=== PATIENT | female | born 1950 | race Caucasian/White ===

== ENCOUNTER → 2017-04-28 | Outpatient (CLI) | payer OTHER ==
--- NOTE | 2017-04-28 15:08 | MAMMOGRAPHY REPORT ---
BILATERAL DIGITAL SCREENING MAMMOGRAM WITH CAD: 04/28/2017 CLINICAL HISTORY: Routine screening. Patient has no complaints. TECHNIQUE: Bilateral CC and MLO views were obtained. Current study was also evaluated with a Compute r Aided Detection (CAD) system. COMPARISON: Comparison is made to exams dated: 04/23/2016 mammogram, 04/02/2015 mammogram, 03/31/2014 mammogram, 03/30/2013 mammogram, 03/24/2011 mammogram, and 03/18/2010 mammogram - [facility]. BREAST COMPOSITION: There are scattered areas of fibroglandular density in both breasts. FINDINGS: There are a few benign coarse calcifications in the lower inner quadrants posteriorly. Sta ble focal asymmetry in the left upper outer anterior breast. No new suspicious mass, architectural d istortion or cluster of microcalcifications is seen. IMPRESSION: ACR BI-RADS CATEGORY 1: NEGATIVE There is no mammographic evidence of malignancy. A 1 year screening mammogram is recommended. The pa tient will receive written notification of the results. Approximately 10% of breast cancers are not detected with mammography. A negative mammographic report should not delay biopsy if a clinically suggestive mass is present. Arminda Hollingsworth M.D. ay/:04/28/2017 11:15:26 Logging Specialist: Angela MCDOWELL(R)(M), [facility] letter sent: Normal 1/2 BI-RADS Code: ACR BI-RADS Category 1: Negative
== END | disposition home or self-care (01) ==
LOC: C.MAMM 10:17
PROVIDERS: ATTEND Family Medicine
DX: Z12.31 Encounter for screening mammogram for malignant neoplasm of breast (principal)

== ENCOUNTER 2017-12-15 05:10 | Inpatient (IN) | payer OTHER ==
[2017-12-10 13:49] VITALS: BMI 32.0
[2017-12-15] VITALS (9 sets, daily range): BP systolic 125–155; BP diastolic 68–88; PULSE 66–82; TEMP 36.7–37.4; O2SAT 90–99; BMI 32.0
[~2017-12-15] VITALS: Ht 160 cm; Wt 84.4 kg
[~2017-12-15 05:10] MED LIST: CHOL1000 PO; LISI-461 PO; MELO7.5T5 PO; PRLSR20 PO; RANI1TAB75 PO; SIMV40TA2 PO
[2017-12-15] MEDS: LACTATED RINGER'S 1000ML 1,000 ML IV SCH ×4 (06:05→18:21)
--- NOTE | 2017-12-15 06:26 | History & Physical Bridge Note ---
H&P Re-Evaluation Bridge Note: I have examined the patient, reviewed the History & Physical and in the interval since the performance of the History & Physical I have noted the following changes of clinical significance: No changes noted all questions answered, nauseated when taking oral antibiotics for bowel prep, to be here later
[2017-12-15] MEDS ORDERED: ONDANSETRON INJ 2 MG/ML 2 ML VIAL ONE (06:39)
[2017-12-15] MEDS ORDERED: NURSING VERBAL MED ORDER ONE (06:45)
[2017-12-15] MEDS ORDERED: PROPOFOL IV EMULSION 10 MG/ML 20 ML VIAL ONE (06:45)
[2017-12-15] MEDS ORDERED: SUCCINYLCHOLINE 100MG/5ML SYR IV ONE (06:46)
[2017-12-15] MEDS ORDERED: FENTANYL CITRATE INJ 50 MCG/1 ML 2 ML VIAL ONE (06:47)
[2017-12-15] MEDS ORDERED: MIDAZOLAM HCL 1 MG/ML 2ML VIAL ONE (06:47)
[2017-12-15] MEDS ORDERED: CEFOXITIN SOD 1 GM VIAL ONE (07:19)
[2017-12-15] MEDS ORDERED: DEXAMETHASONE SOD INJ 4 MG/ML VIAL ONE (07:41)
[2017-12-15] MEDS ORDERED: HYDROmorphone INJ 2 MG/ML SYR/VIAL ONE (07:49)
[2017-12-15] MEDS ORDERED: PROMETHAZINE HCL INJ 12.5 MG in SODIUM CHLORIDE 0.9% 50ML 50 ML IV PRN (08:45)
[2017-12-15] MEDS ORDERED: ATROPINE SULFATE 0.1 MG/ML 5ML SYR IV PRN (08:45)
[2017-12-15] MEDS ORDERED: LABETALOL HCL IV 5 MG/ML 20ML IV PRN (08:45)
[2017-12-15] MEDS ORDERED: FLUMAZENIL 0.1 MG/1 ML 10 ML VIAL IV PRN (08:45)
[2017-12-15] MEDS ORDERED: NALOXONE HCL 0.4 MG/1 ML VIAL/CARP IV PRN (08:45)
[2017-12-15] MEDS ORDERED: ONDANSETRON INJ 2 MG/ML 2 ML VIAL IV PRN (08:45)
[2017-12-15] MEDS ORDERED: EpHEDrine SULFATE INJ 50 MG/ML AMP IV PRN (08:45)
[2017-12-15] MEDS ORDERED: NEOSTIGMINE METHYLSULFATE 5 MG/5 ML SYR ONE (09:03)
[2017-12-15] MEDS ORDERED: GLYCOPYRROLATE INJ 0.2 MG/ML VIAL ONE (09:03)
--- NOTE | 2017-12-15 09:23 | [facility] Post Operative Brief Note ---
Immediate Operative Summary Operative Date Dec 15, 2017. Pre-Operative Diagnosis appendiceal carcinoid Post-Operative Diagnosis same dense abdominal adhesions Procedure(s) Performed right radical colectomy, musaes dense abdominal adhesions Surgeon Dr. Miguel Pérez Commercial Account Officer Surgeon(s) Keyshawn Rivera PA-C Estimated Blood Loss 150cc Findings See Below as post op Specimens Permanent Solution: A.) Radical Right Colon and Omentum Drains 1/4 inch sub cut Anesthesia Type General
[2017-12-15] MEDS ORDERED: MoRPHine SULFATE 4 MG/ML 1 ML CARP\\VIAL IV PRN (09:45)
[2017-12-15] MEDS ORDERED: OXYCODONE/ACETAMINOPHEN 5-325 TAB PO PRN ×2 (09:45)
[2017-12-15] MEDS: HYDROmorphone INJ 0.5 MG/0.5 ML SYR IV PRN ×8 (09:51→10:27)
--- NOTE | 2017-12-15 10:37 | Anesthesiology Progress Note ---
Anesthesia Post Op Note Date & Time Dec 15, 2017 at 10:37 Vital Signs Pain Intensity: 3 Vital Signs Past 12 Hours Date Time Temp Pulse Resp B/P (MAP) Pulse Ox O2 Delivery O2 Flow Rate FiO2 18 10:31 140/78 7/17/18 10:29 73 5 7/17/18 10:29 73 5 95 17/18 10:26 36.9 88 16 133/70 (100) 98 Nasal Cannula 2 18 10:26 133/70 17/18 10:24 74 6 96 17/18 10:24 73 6 17/18 10:21 151/72 17/18 10:19 80 12 17/18 10:19 76 12 95 17/18 10:16 132/89 17/18 10:14 74 14 95 17/18 10:14 74 14 17/18 10:11 151/75 17/18 10:09 74 8 17/18 10:09 74 8 98 17/18 10:06 142/67 17/18 10:04 75 7 /17/18 10:04 76 7 97 17/18 10:01 150/85 17/18 09:59 83 14 97 17/18 09:59 80 14 /17/18 09:58 73 13 17/18 09:58 73 13 98 17/18 09:56 138/81 17/18 09:53 78 23 98 17/18 09:53 78 23 17/18 09:51 167/79 17/18 09:48 75 18 100 17/18 09:48 76 18 /17/18 09:47 150/84 717/18 09:43 80 18 100 17/18 09:43 80 18 7/17/18 09:41 141/70 17/18 09:38 74 15 100 /17/18 09:38 74 15 /17/18 09:37 173/77 7/17/18 09:34 151/66 7/17/18 09:33 73 10 100 /17/18 09:33 36.7 77 15 151/66 (115) 100 Oxymask 10 7/17/18 09:33 74 10 7/17/18 05:50 36.7 82 18 141/81 97 Room Air Notes Mental Status: alert / awake / arousable, participated in evaluation Pt Amnestic to Procedure: Yes Nausea / Vomiting: adequately controlled Pain: adequately controlled Airway Patency, RR, SpO2: stable & adequate BP & HR: stable & adequate Hydration State: stable & adequate Anesthetic Complications: no major complications apparent
--- NOTE | 2017-12-15 12:50 | OPERATIVE REPORT ---
DATE OF OPERATION: 12/15/2017 SURGEON: Miguel Pérez MD HIGH LEAD YARDER: Keyshawn Matute PA-C. 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 PROCEDURE: Laparotomy, lysis of dense abdominal adhesions, right radical colectomy with [id number] ileocolonic anastomosis. SUMMARY: The patient was brought into the operating room theater. Burleson catheter had been inserted. The abdomen was prepped with Betadine solution and properly draped. Systemic antibiotics were given. The patient had an incision above the umbilicus linearly where I think she has had a recent laparoscopic appendectomy about a month ago. She had a fairly large panniculus. Therefore, we stayed above that incision in the midline, made about a 4-inch incision deepened through subcutaneous tissue onto the abdominal wall. Once we entered the abdominal wall we could find old sutures that the patient had had for a reyna incision years ago in the right paramedian incision. The incision was enlarged cephalad and caudad, sufficient enough that we were able then to enter the abdomen where we found dense abdominal adhesions. We inserted a Bookwalter this time but prior to doing that we had freed up the cecum dividing white line of Toldt sufficient enough to place the blades of the Bookwalter, then took our dissection towards the hepatic flexure, which was strictly adherent underneath the liver and the abdominal wall, the omentum was completely adherent to the previous incision. The dissection usually bluntly and sharply, we were able then to mobilize and actually had a piece of omentum that was involved in dense abdominal adhesions when we decided to resect it. At this point, once we had freed that up, we had identified the hepatic flexure turned towards the transverse colon where at this point we had enough mobilization, avoiding the duodenum elevated pretty much the whole right colon to the abdominal wound to the terminal ileum. We used a CARMEN stapler to fire across the terminal ileum at approximately 6 inches from the ileocecal valve and then scored the mesentery at the root of the mesentery to the other staple line that was to the right of the middle colic. We then ligated the mesentery with suture ligature of 2-0 silk. The specimen was then removed. At this point there was 2 line of resection. The mesentery was closed with interrupted 3-0 silk making sure that we had lined the ileum to the transverse colon without any rotation. We oversewed the staple line with 3-0 interrupted silk sutures, ended up doing a [id number] anastomosis with 3-0 silk outer layer, 3-0 chromic inner layer. The anastomosis appeared quite secure. We irrigated the abdomen, returned the viscera in normal anatomical position. We had now put an NG tube on the patient. We closed the abdominal wall using retention sutures of #5 mersilene since the patient had a significant amount of fatty tissue and everything appeared to be very fragile during our dissection and operation. These were the retention sutures that would be tied over a rubber bolster at the end. #1 PDS was used to close the fascia in a continuous fashion, 0.25-inch Gustavo was placed in the subQ, secured and it was placed distally and cephalad to the incision with 2-0 silk suture. Bolsters were tied down after the kami had been placed. Dressing was applied. Procedure was tolerated well by the patient. Estimated blood loss approximately 150 mL. The patient was taken to recovery room in good condition. I attest to the content of the Intraoperative Record and any orders documented therein. Any exceptions are noted below. JULIOCESARD
[2017-12-15] MEDS: HEPARIN SOD 5000 UNIT/0.5 ML CARP SQ SCH ×2 (13:42→21:37)
[2017-12-15] MEDS: CEFOXITIN IV 2,000 MG in DEXTROSE 5% 50ML 50 ML IV SCH ×2 (14:19→19:12)
[2017-12-15] MEDS: ONDANSETRON INJ 2 MG/ML 2 ML VIAL IV PRN (21:07)
[2017-12-15] MEDS: ACETAMINOPHEN IV 100 ML IV PRN (23:22)
[2017-12-16] MEDS: LACTATED RINGER'S 1000ML 1,000 ML IV SCH (02:13)
[2017-12-16 03:13] VITALS: BP 123/72; PULSE 68; TEMP 37.3; O2SAT 92
[2017-12-16] MEDS: ONDANSETRON INJ 2 MG/ML 2 ML VIAL IV PRN ×2 (04:52→10:45)
[2017-12-16 05:59] LABS: BASO % 0.1 %; BASO ABS # 0.01 K/uL (0-0.2); HEMATOCRIT 38.7 % (37-47); HEMOGLOBIN 13.2 g/dL (12.0-16.0); IG# 0.07 K/uL (0.00-0.02); LYMPH % 5.9 %; LYMPH ABS # 1.16 K/uL (1.2-3.4); MEAN CELL VOLUME 92.4 fL (80-100); MEAN CORPUSCULAR HEMOGLOBIN 31.5 pg (25-34); MEAN CORPUSCULAR HGB CONC 34.1 g/dl (32-36); MEAN PLATELET VOLUME 9.9 fL (7.4-10.4); MONO % 7.3 %; MONO ABS # 1.44 K/uL (0.11-0.59); NEUT % 86.3 %; NEUT ABS # 17.02 K/uL (1.4-6.5); PLATELET COUNT 240 K/uL (130-400); RED CELL DISTRIBUTION WIDTH CV 12.5 % (11.5-14.5); RED CELL DISTRIBUTION WIDTH SD 42.2 fL (36.4-46.3)
[2017-12-16] MEDS: HEPARIN SOD 5000 UNIT/0.5 ML CARP SQ SCH ×3 (06:05→18:07)
[2017-12-16 06:39] LABS: ALBUMIN 3.1 gm/dl (3.4-5.0); CALCIUM 8.9 mg/dl (8.5-10.1); CREATININE 0.7 mg/dl (0.60-1.20); TOTAL PROTEIN 7.3 gm/dl (6.4-8.2)
[2017-12-16 06:53] VITALS: BP 120/71; PULSE 77; TEMP 37.5; O2SAT 90
--- NOTE | 2017-12-16 08:01 | SURGERY PROGRESS NOTE ---
DATE: 12/16/2017 Mendy's first postoperative day status post right radical colectomy, lysis of dense abdominal adhesion. I saw her last night with her at her bedside. Then she was alert, coherent and not really had any discomfort. Intraoperative findings were discussed with the patient. However, this morning as I came in to see her, the nurse reported that she had multiple small emesis and the upper abdomen was distended. The rest was fine. The dressing was intact. I asked that an NG tube to be positioned and we will place the NG tube. She has a significant amount of dark emesis. At this point, we will get an x-ray of her abdomen to visualize the position of the NG tube, we will keep her n.p.o., add Protonix. We will change her IV fluid also and maintain her Burleson in today to establish more of her fluid status. LABORATORY STUDIES: She had a white count of 19.70 with a left shift, this probably related to her surgery and her hemoglobin was 13.2. The BUN is 15, creatinine 0.70.
[2017-12-16] MEDS: NSS + 20MEQ KCL 1000ML 1,000 ML IV SCH ×3 (08:03→23:43)
[2017-12-16] MEDS: ACETAMINOPHEN IV 100 ML IV PRN (08:32)
--- NOTE | 2017-12-16 08:36 | DIAGNOSTIC IMAGING REPORT ---
KUB HISTORY: post op for ng tube placement COMPARISON: None. FINDINGS: Multiple mildly dilated gas-filled loops of large and small bowel seen throughout the abdomen. These findings favor an ileus. Midline skin kami are present. Prior cholecystectomy. The nasogastric tube is identified and is subdiaphragmatic. This likely resides within the proximal stomach. No renal calculi. No ureteral calculi. No pneumoperitoneum or pneumatosis. IMPRESSION: 1. The nasogastric tube terminates in the proximal stomach. 2. Mildly dilated gas-filled loops of large and small bowel. This favors a postoperative ileus. Electronically signed by: Chas Rice M.D. 12/16/2017 8:34 AM Dictated Date/Time: 12/16/2017 8:33 AM
[2017-12-16 09:52] VITALS: O2SAT 97
[2017-12-16] MEDS ORDERED: PANTOprazole INJ 40 MG in SYRINGE 0 ML IV SCH ×2 (11:00→20:00)
[2017-12-16 12:20] VITALS: Ht 160 cm; Wt 84.4 kg
[2017-12-16] MEDS ORDERED: NURSING VERBAL MED ORDER ONE ×3 (13:30→20:00)
[2017-12-16 15:20] VITALS: PULSE 71; TEMP 37.2; O2SAT 93
[2017-12-16 15:30] VITALS: O2SAT 97
[2017-12-16] MEDS ORDERED: LORAZEPAM INJ 0.5 MG in SYRINGE 0.75 ML IV ONE (20:15)
[2017-12-16 22:55] VITALS: BP 147/70; PULSE 87; TEMP 36.8; O2SAT 87; O2SAT 91
[2017-12-16] MEDS: MoRPHine SULFATE 4 MG/ML 1 ML CARP\\VIAL IV PRN (23:54)
[2017-12-17] VITALS (7 sets, daily range): BP systolic 112–160; BP diastolic 64–86; PULSE 72–80; TEMP 36.7–37.3; O2SAT 93–95
[2017-12-17] MEDS: MoRPHine SULFATE 4 MG/ML 1 ML CARP\\VIAL IV PRN (04:07)
[2017-12-17 05:13] LABS: BASO % 0.1 %; BASO ABS # 0.01 K/uL (0-0.2); HEMATOCRIT 43.1 % (37-47); HEMOGLOBIN 14.4 g/dL (12.0-16.0); IG# 0.06 K/uL (0.00-0.02); LYMPH % 5.2 %; LYMPH ABS # 1.03 K/uL (1.2-3.4); MEAN CELL VOLUME 93.7 fL (80-100); MEAN CORPUSCULAR HEMOGLOBIN 31.3 pg (25-34); MEAN CORPUSCULAR HGB CONC 33.4 g/dl (32-36); MEAN PLATELET VOLUME 10.5 fL (7.4-10.4); MONO % 4.8 %; MONO ABS # 0.94 K/uL (0.11-0.59); NEUT % 89.6 %; NEUT ABS # 17.73 K/uL (1.4-6.5); PLATELET COUNT 261 K/uL (130-400); RED CELL DISTRIBUTION WIDTH CV 12.7 % (11.5-14.5); RED CELL DISTRIBUTION WIDTH SD 43.6 fL (36.4-46.3); WHITE BLOOD COUNT 19.77 K/uL (4.8-10.8)
[2017-12-17] MEDS: HEPARIN SOD 5000 UNIT/0.5 ML CARP SQ SCH ×2 (05:39→19:06)
[2017-12-17 06:43] LABS: CALCIUM 8.7 mg/dl (8.5-10.1); CREATININE 0.63 mg/dl (0.60-1.20); POTASSIUM 4.2 mmol/L (3.5-5.1)
[2017-12-17] MEDS ORDERED: SODIUM CHLORIDE 0.9% 500ML 500 ML IV SCH ×3 (07:30→11:30)
[2017-12-17] MEDS: NSS + 20MEQ KCL 1000ML 1,000 ML IV SCH (07:33)
[2017-12-17] MEDS ORDERED: HydrALAZINE HCL 20 MG/ML VIAL IV. PRN (09:00)
--- NOTE | 2017-12-17 09:54 | SURGERY PROGRESS NOTE ---
DATE: 12/17/2017 Mendy is 2nd postop day status post open right hemicolectomy, lysis of adhesion. She feels a little bit better than yesterday. She said the abdominal pain has pretty much dissipated. Her last temperature showed 36.7, pulse 72, respirations 18, blood pressure 158/86, O2 sats 93 on 2 liters. The NG output showed to be 100 overnight. Urine output was 275 overnight. Laboratory kauffman this morning, white count still elevated at 19.77 with a left shift, hemoglobin is 14.4. She is more hemoconcentrated. The BUN is 22, creatinine 0.63. We will go ahead and give her a fluid bolus and increase her IV at this time; I think she is still behind on fluids. We will have the medical service consult to have her manage her hypertension.
[2017-12-17] MEDS: PANTOprazole INJ 40 MG in SYRINGE 0 ML IV SCH ×2 (10:43→22:08)
[2017-12-17] MEDS: SODIUM CHLOR 0.45% + 20MEQ KCL 1,000 ML IV SCH ×3 (12:42→19:49)
[2017-12-17] MEDS ORDERED: NURSING VERBAL MED ORDER ONE (12:45)
--- NOTE | 2017-12-17 13:41 | Medical Consult ---
Consultation Date of Consultation: Dec 17, 2017. Attending Physician: Miguel Pérez M.D. Reason for Consultation: Postop medical management History of Present Illness 67-year-old female who is status post right hemicolectomy and lysis of adhesion with Dr. Pérez on 12/15/17. Patient underwent appendectomy on 10/22 for acute appendicitis. Final pathology showed carcinoid tumor at the margin of the resection. Patient was then referred for the planned procedure on 12/15. Postoperatively patient has been having issues with pain and nausea control. NG tube was placed yesterday and has since drained 1050 cc of a very dark fluid. At the time my exam, patient reports her pain and nausea are currently controlled. She had recently been given pain medicine and reports she feels sleepy from that. She denies chest pain shortness of breath. No lightheadedness or dizziness. Burleson is in place draining clear yellow urine. Past Medical/Surgical History Medical Problems: (1) Dyslipidemia Status: Chronic (2) GERD (gastroesophageal reflux disease) Status: Chronic (3) Hypertension Status: Chronic Surgical Problems: (1) H/O dilation and curettage Status: Chronic (2) H/O repair of left rotator cuff Status: Chronic (3) History of appendectomy Status: Chronic (4) Hx of cholecystectomy Status: Chronic (5) S/P right hemicolectomy Status: Chronic (6) S/P right knee arthroscopy Status: Chronic Family History FH: breast cancer SISTER FH: colon cancer MOTHER FH: lung cancer FATHER Social History Smoking Status: Current Every Day Smoker Marital Status: Housing Status: lives with significant other Occupation Status: retired Allergies Coded Allergies: Sulfa Drugs (Unverified Adverse Reaction, Unknown, NAUSEA AND VOMITING, ) Uncoded Allergies: "ANTIBIOTICS" (Adverse Reaction, Unknown, THRUSH, 10/13/04) Home Medications Ranitidine 75 (Ranitidine HCl) 75 Mg Tab 1 Tab PO BID TAKES 1 HOUR BEFORE BREAKFAST AND WITH DINNER Zocor (Simvastatin) 40 Mg Tab 40 Mg PO QD@ 2000 Mobic (Meloxicam) 7.5 Mg Tab 7.5 Mg PO QAM Lisinopril 10 Mg Tab 10 Mg PO QAM Prilosec (Omeprazole) 20 Mg Capcr 20 Mg PO DAILYBB Vitamin D3 (Cholecalciferol) 1,000 Unit Tab 1,000 Units PO DAILYBB 90 Days Current Inpatient Medications Current Inpatient Medications Medications (Trade) Dose Ordered Sig/Jayashree Route Start Time Stop Time Status Last Admin Dose Admin Acetaminophen 100 ml @ 400 mls/hr Q8H PRN IV 12/15/17 09:45 01/14/18 09:44 12/16/17 08:32 400 MLS/HR Oxycodone/ Acetaminophen (Percocet 5-325mg Tab) 1 tab Q4H PRN PO 12/15/17 09:45 12/29/17 09:44 Morphine Sulfate (MoRPHine SULFATE INJ) 2 mg Q3H PRN IV 12/15/17 09:45 12/29/17 09:44 12/17/17 10:43 2 MG Oxycodone/ Acetaminophen (Percocet 5-325mg Tab) 2 tab Q4H PRN PO 12/15/17 09:45 12/29/17 09:44 Morphine Sulfate (MoRPHine SULFATE INJ) 4 mg Q3H PRN IV 12/15/17 09:45 12/29/17 09:44 12/17/17 04:07 4 MG Ondansetron HCl (Zofran Inj) 4 mg Q6H PRN IV 12/15/17 09:45 01/14/18 09:44 12/16/17 10:45 4 MG Heparin Sodium (Porcine) (Heparin Sq 5000 Unit/0.5ml) 5,000 unit Q12H SQ 12/16/17 18:00 01/15/18 17:59 12/17/17 05:39 5,000 UNIT Pantoprazole Sodium 40 mg/ Syringe 10 ml @ 5 mls/min BID@1100,2200 IV 12/17/17 11:00 01/16/18 10:59 12/17/17 10:43 5 MLS/MIN Potassium Chloride/Sodium Chloride 1,000 ml @ 150 mls/hr Q6H40M IV 12/17/17 09:15 01/16/18 09:14 Future hold 12/17/17 12:54 150 MLS/HR Hydralazine HCl (HydrALAZINE INJ) 10 mg Q6 PRN IV. 12/17/17 09:00 01/16/18 08:59 Promethazine HCl 12.5 mg/Sodium Chloride 50.5 ml @ 204 mls/hr Q6H PRN IV 12/17/17 10:45 01/16/18 10:44 Review of Systems ROS per HPI, all other systems reviewed and negative Physical Exam Date Time Temp Pulse Resp B/P (MAP) Pulse Ox O2 Delivery O2 Flow Rate FiO2 12/17/17 12:02 36.7 78 20 132/78 (96) 94 Nasal Cannula 2.0 12/17/17 08:21 93 Nasal Cannula 2.0 12/17/17 08:05 36.7 72 18 158/86 (110) 93 Nasal Cannula 2.0 12/16/17 23:15 Nasal Cannula 2.0 12/16/17 22:55 36.8 87 16 147/70 (95) 87 Room Air 12/16/17 22:55 91 Nasal Cannula 2.0 12/16/17 15:30 97 Nasal Cannula 2.0 12/16/17 15:20 37.2 71 17 93 Nasal Cannula 2.0 General Appearance: WD/WN, no apparent distress, + pertinent finding (Resting quietly in bed) Head: normocephalic, atraumatic Eyes: normal inspection, EOMI, sclerae normal ENT: hearing grossly normal, + pertinent finding (Mucous membranes dry) Neck: supple, no JVD, trachea midline Respiratory/Chest: no respiratory distress, + decreased breath sounds Cardiovascular: regular rate, rhythm, no edema, normal peripheral pulses Abdomen/GI: soft, + tenderness (Incisional), + abnormal bowel sounds ( Hypoactive), + pertinent finding (Midline abdominal dressing dry and intact) Extremities/Musculoskelatal: normal inspection, no calf tenderness, normal capillary refill Neurologic/Psych: no motor/sensory deficits, normal mood/affect, oriented x 3, + pertinent finding (Mildly lethargic, awakens easily to verbal stimuli) Skin: normal color, warm/dry Laboratory Results Last 24 Hours Test 12/17/17 04:37 White Blood Count 19.77 K/uL Red Blood Count 4.60 M/uL Hemoglobin 14.4 g/dL Hematocrit 43.1 % Mean Corpuscular Volume 93.7 fL Mean Corpuscular Hemoglobin 31.3 pg Mean Corpuscular Hemoglobin Concent 33.4 g/dl Platelet Count 261 K/uL Mean Platelet Volume 10.5 fL Neutrophils (%) (Auto) 89.6 % Lymphocytes (%) (Auto) 5.2 % Monocytes (%) (Auto) 4.8 % Eosinophils (%) (Auto) 0.0 % Basophils (%) (Auto) 0.1 % Neutrophils # (Auto) 17.73 K/uL Lymphocytes # (Auto) 1.03 K/uL Monocytes # (Auto) 0.94 K/uL Eosinophils # (Auto) 0.00 K/uL Basophils # (Auto) 0.01 K/uL RDW Standard Deviation 43.6 fL RDW Coefficient of Variation 12.7 % Immature Granulocyte % (Auto) 0.3 % Immature Granulocyte # (Auto) 0.06 K/uL Sodium Level 141 mmol/L Potassium Level 4.2 mmol/L Chloride Level 108 mmol/L Carbon Dioxide Level 25 mmol/L Anion Gap 8.0 mmol/L Blood Urea Nitrogen 22 mg/dl Creatinine 0.63 mg/dl Est Creatinine Clear Calc Drug Dose 85.8 ml/min Estimated GFR () 106.1 Estimated GFR (Non- 91.5 BUN/Creatinine Ratio 34.9 Random Glucose 119 mg/dl Calcium Level 8.7 mg/dl Assessment & Plan S/P RIGHT HEMICOLECTOMY AND LYSIS OF ADHESION -Postop day 2 -Management as per general surgery -Had NG placed on 12/16 for nausea control -currently draining a very dark brown , blood-tinged fluid -surgery aware, hemoglobin stable -Started on PPI drip HYPERTENSION -BP mildly elevated this a.m. - most recent BP 132/78 -Ordered as needed hydralazine by surgery -Typically managed on lisinopril at home, on hold for now GERD -On PPI drip DVT PROPHYLAXIS -SQ heparin as per surgery Thank you for this consultation. We will follow the patient with you during their hospital stay. You can reach a member of the [facility] Hospitalist Team 22/12 via pager @ . Attending Note: Patient is seen and examined at bedside. Abd pain is controlled. Nausea is resolved. Denies chest pain, SOB, dizziness. No Flatus or BM yet. On exam chest is CTA, Abd: surgical site in dressing, +NG tube, S1, S2. I personally reviewed the record. Agree with IV fluids, IV Protonix. No Abx for now. Monitor hemodynamically post op. BP is fairly stable. Activity, diet, DVT Px per Primary team. Patient's care is coordinated with Malgorzata Love MANAGER [employer]ING. Please refer to the documentation above for details of patient's presentation and for discussion of other issues.
[2017-12-17] MEDS: PROMETHAZINE HCL INJ 12.5 MG in SODIUM CHLORIDE 0.9% 50ML 50 ML IV PRN (17:10)
[2017-12-17] MEDS: ONDANSETRON INJ 2 MG/ML 2 ML VIAL IV PRN (21:03)
[2017-12-18] VITALS (8 sets, daily range): BP systolic 146–158; BP diastolic 79–88; PULSE 71–80; TEMP 36.6–36.7; O2SAT 86–94
[2017-12-18] MEDS: PROMETHAZINE HCL INJ 12.5 MG in SODIUM CHLORIDE 0.9% 50ML 50 ML IV PRN (00:34)
[2017-12-18] MEDS: SODIUM CHLOR 0.45% + 20MEQ KCL 1,000 ML IV SCH ×4 (02:22→21:46)
[2017-12-18] MEDS: HEPARIN SOD 5000 UNIT/0.5 ML CARP SQ SCH ×2 (06:15→18:20)
[2017-12-18 06:50] LABS: HEMATOCRIT 42.8 % (37-47); HEMOGLOBIN 14.2 g/dL (12.0-16.0); IG# 0.04 K/uL (0.00-0.02); LYMPH % 7.9 %; LYMPH ABS # 1.18 K/uL (1.2-3.4); MEAN CORPUSCULAR HEMOGLOBIN 30.9 pg (25-34); MEAN CORPUSCULAR HGB CONC 33.2 g/dl (32-36); MEAN PLATELET VOLUME 10.3 fL (7.4-10.4); MONO % 7.5 %; MONO ABS # 1.13 K/uL (0.11-0.59); NEUT % 84.3 %; NEUT ABS # 12.68 K/uL (1.4-6.5); PLATELET COUNT 223 K/uL (130-400); RED CELL DISTRIBUTION WIDTH SD 43.9 fL (36.4-46.3); WHITE BLOOD COUNT 15.03 K/uL (4.8-10.8)
[2017-12-18 07:22] LABS: CALCIUM 8.3 mg/dl (8.5-10.1); CREATININE 0.61 mg/dl (0.60-1.20); POTASSIUM 4.4 mmol/L (3.5-5.1)
[2017-12-18] MEDS ORDERED: SODIUM CHLORIDE 0.9% 1000ML 1,000 ML IV ONE (08:15)
--- NOTE | 2017-12-18 08:20 | SURGERY PROGRESS NOTE ---
DATE: 12/18/2017 Mendy's third postoperative day status post open right hemicolectomy, lysis of dense abdominal adhesions. Overall, she appears to doing much better than she had yesterday. On the day before, she had minimal NG output. She is not nauseated, although she feels like that the third tube is irritating her throat, makes her gag. Her last vitals showed temperature 36.6, pulse 75, respirations 20, blood pressure 158/88, O2 sats at 93 on room air. I and O, her urine output was 800 yesterday, 200 overnight. The abdomen is softer. The incision looks intact. The [place] drain was removed from the subQ. Her laboratory showed her BUN is 26, creatinine 0.61. White cell count down to 15.03 with decrease in left shift, but hemoglobin was 14.2, still hemoconcentrated from prior to surgery. At this point, we will discontinue the NG tube, discontinue the Burleson, keep her IV at 150 and give her another bolus of 1 liter normal saline over 5 hours and started on some water sips and ice chips and increase her activity. The path report is still pending.
[2017-12-18] MEDS ORDERED: OXYC-57 PO (09:09)
--- NOTE | 2017-12-18 09:11 | Discharge Instructions ---
Discharge Instructions Date of Service Dec 18, 2017. Admission Reason for Admission: Cancer of Appendix Discharge Discharge Diagnosis / Problem: right hemicolectomy Discharge Goals Goal(s): Decrease discomfort Activity Recommendations Activity Limitations: as noted below Lifting Limitations: no more than 10 pounds Shower/Bathe: no limitations Driving or Machine Use: 1 week . Instructions / Follow-Up Instructions / Follow-Up Dr. Pérez within 1 week, call [phone] to schedule an appt or if you have any questions Current Hospital Diet Patient's current hospital diet: Discharge Diet Recommended Diet: Low Fat Diet (for a few days) Procedures Procedures Performed: right radical colectomy, lyses dense abdominal adhesions Pending Studies Studies pending at discharge: no Medical Emergencies . Who to Call and When: Medical Emergencies: If at any time you feel your situation is an emergency, please call 911 immediately. . Non-Emergent Contact Non-Emergency issues call your: Surgeon Call Non-Emergent contact if: you have a fever, temperature is above 101.5, your pain is not controlled, wound has increased drainage, wound has increased redness, wound has increased pain, you have any medication questions . "Provider Documentation" section prepared by Sal Burdick. .
[2017-12-18] MEDS: PANTOprazole INJ 40 MG in SYRINGE 0 ML IV SCH ×2 (10:18→21:42)
--- NOTE | 2017-12-18 13:01 | Progress Note ---
Internal Med Progress Note Date of Service: Dec 18, 2017. Provider Documentation: SUBJECTIVE: Seen and examined at bedside NG tube is discontinued No Flatus/BM yet Abdominal pain at surgical site is controlled Denies chest pain, SOB, dizziness +Burping OBJECTIVE: Vital Signs-as noted below Physical Exam: General Appearance:Moderately built and nourished, no apparent distress Head: normocephalic, Atraumatic Eyes: normal inspection, EOMI, PERRL Neck: supple, Trachea midline Respiratory/Chest: Normal breath sounds, mild basal crackles Cardiovascular: S1, S2, No murmur Abdomen/GI:Soft, Non tender, Bowel sounds present, Surgical site in dressing Extremities/Musculoskelatal:normal inspection, no edema Neurologic/Psych:AAOX3, grossly no focal neurological deficits Skin: normal color, warm Lab data as noted below. ASSESSMENT & PLAN: S/P Right Radical Colectomy and Lysis of adhesions Post Op Day # 3 NG tube discontinued Abdominal pain is controlled NPO for now Pathology report pending Continue Protonix BID Hb stable Activity/Diet per surgery Surgery following on IV fluids continue Incentive Spirometry leukocytosis trending down Hypertension Mildly elevated asymptomatic Resume lisinopril as able hydralazine PRN monitor GERD On PPI Dyslipidemia: Resume statins as able DVT Px: On SQ heparin Code Status: Full Code Disposition: Per Surgical team Vital Signs: Date Time Temp Pulse Resp B/P (MAP) Pulse Ox O2 Delivery O2 Flow Rate FiO2 12/20/17 07:30 94 Nasal Cannula 2.0 12/20/17 07:25 36.7 67 18 147/81 (103) 94 Nasal Cannula 2.0 12/19/17 23:50 94 Nasal Cannula 2.0 12/19/17 23:30 37.2 72 18 138/76 (96) 94 Nasal Cannula 2.0 12/19/17 16:30 95 Nasal Cannula 2.0 12/19/17 15:01 37.1 69 16 129/72 (91) 95 Nasal Cannula 2.0 Lab Results: Results Past 24 Hours Test 12/20/17 07:05 Range/Units Hemoglobin 12.2 12.0-16.0 g/dL Hematocrit 36.2 37-47 % Sodium Level 137 136-145 mmol/L Potassium Level 3.7 3.5-5.1 mmol/L Chloride Level 102 98-107 mmol/L Carbon Dioxide Level 24 21-32 mmol/L Anion Gap 10.0 3-11 mmol/L Blood Urea Nitrogen 12 7-18 mg/dl Creatinine 0.44 0.60-1.20 mg/dl Est Creatinine Clear Calc Drug Dose 122.9 ml/min Estimated GFR () 119.4 Estimated GFR (Non- 103.0 BUN/Creatinine Ratio 26.6 10-20 Random Glucose 86 70-99 mg/dl Calcium Level 8.2 8.5-10.1 mg/dl Phosphorus Level 2.8 2.5-4.9 mg/dl Magnesium Level 1.8 1.8-2.4 mg/dl
[2017-12-18] MEDS: ACETAMINOPHEN IV 100 ML IV PRN (13:36)
[2017-12-19] MEDS: SODIUM CHLOR 0.45% + 20MEQ KCL 1,000 ML IV SCH ×2 (04:49→15:03)
[2017-12-19] MEDS: HEPARIN SOD 5000 UNIT/0.5 ML CARP SQ SCH ×2 (06:05→18:12)
[2017-12-19 06:36] LABS: HEMATOCRIT 38.1 % (37-47); HEMOGLOBIN 12.9 g/dL (12.0-16.0); MEAN CELL VOLUME 92.3 fL (80-100); MEAN CORPUSCULAR HEMOGLOBIN 31.2 pg (25-34); MEAN CORPUSCULAR HGB CONC 33.9 g/dl (32-36); MEAN PLATELET VOLUME 10.5 fL (7.4-10.4); PLATELET COUNT 184 K/uL (130-400); RED CELL DISTRIBUTION WIDTH CV 12.7 % (11.5-14.5); WHITE BLOOD COUNT 10.66 K/uL (4.8-10.8)
--- NOTE | 2017-12-19 06:40 | Surgery Progress Note ---
Surgery Progress Note Date of Service Dec 19, 2017. Subjective improved- better urine output small amt flatus, some belching, min pain Objective Vital Signs: Date Time Temp Pulse Resp B/P (MAP) Pulse Ox O2 Delivery O2 Flow Rate FiO2 12/18/17 23:50 36.7 71 18 148/82 (104) 94 Room Air 12/18/17 21:02 93 Nasal Cannula 2.0 12/18/17 21:00 86 Room Air 12/18/17 20:31 Nasal Cannula 12/18/17 16:00 Nasal Cannula 2.0 12/18/17 15:41 36.6 74 18 150/79 (102) 93 Nasal Cannula 2.0 12/18/17 11:30 36.7 80 20 146/80 (102) 92 Nasal Cannula 2.0 12/18/17 08:45 93 Room Air 12/18/17 07:51 93 Room Air 12/18/17 07:40 36.6 75 20 158/88 (111) 93 Room Air General Appearance: no apparent distress Respiratory/Chest: no respiratory distress Abdomen: + distended (some bowel sounds) Incision(s): intact Laboratory Results: Results Past 24 Hours Test 12/19/17 06:00 Range/Units White Blood Count 10.66 4.8-10.8 K/uL Red Blood Count 4.13 4.2-5.4 M/uL Hemoglobin 12.9 12.0-16.0 g/dL Hematocrit 38.1 37-47 % Mean Corpuscular Volume 92.3 80-100 fL Mean Corpuscular Hemoglobin 31.2 25-34 pg Mean Corpuscular Hemoglobin Concent 33.9 32-36 g/dl RDW Standard Deviation 43.0 36.4-46.3 fL RDW Coefficient of Variation 12.7 11.5-14.5 % Platelet Count 184 130-400 K/uL Mean Platelet Volume 10.5 7.4-10.4 fL Assessment & Plan 12/19/17- ileus seems to be resolving- cont sips, decrease IV check labs, Mg/Phos- cont to ambulate overall- some slow progress
[2017-12-19 07:31] LABS: CALCIUM 8.4 mg/dl (8.5-10.1); CREATININE 0.41 mg/dl (0.60-1.20); PHOSPHORUS 2.7 mg/dl (2.5-4.9); POTASSIUM 4.2 mmol/L (3.5-5.1)
[2017-12-19 07:55] VITALS: BP 145/81; PULSE 70; TEMP 37.1; O2SAT 95
[2017-12-19] MEDS: NYSTATIN SUSP 500,000 U/5 ML UDC PO SCH ×4 (08:20→21:00)
[2017-12-19] MEDS ORDERED: LISINOPRIL 10 MG TAB PO SCH (09:00)
[2017-12-19] MEDS: PANTOprazole INJ 40 MG in SYRINGE 0 ML IV SCH ×2 (10:45→21:47)
--- NOTE | 2017-12-19 11:45 | Progress Note ---
Internal Med Progress Note Date of Service: Dec 19, 2017. Provider Documentation: SUBJECTIVE: Seen and examined at bedside Had small BM today Abdominal pain is controlled Denies chest pain, SOB, dizziness +Burping No other complaints OBJECTIVE: Vital Signs-as noted below Physical Exam: General Appearance:Moderately built and nourished, no apparent distress Head: normocephalic, Atraumatic Eyes: normal inspection, EOMI, PERRL Neck: supple, Trachea midline Respiratory/Chest: Normal breath sounds, basal crackles Cardiovascular: S1, S2, No murmur Abdomen/GI:Soft, Non tender, Bowel sounds present, Surgical site in dressing Extremities/Musculoskelatal:normal inspection, no edema Neurologic/Psych:AAOX3, grossly no focal neurological deficits Skin: normal color, warm Lab data as noted below. ASSESSMENT & PLAN: S/P Right Radical Colectomy and Lysis of adhesions Post Op Day # 4 Abdominal pain is controlled NPO for now Pathology report:Mixed Goblet cell carcinoid-adenocarcinoma Continue Protonix BID Hb stable Activity/Diet per surgery Surgery following on IV fluids continue Incentive Spirometry leukocytosis normalized Hypertension Mildly elevated asymptomatic Resume lisinopril as able hydralazine PRN monitor GERD On PPI Dyslipidemia: Resume statins as able DVT Px: On SQ heparin Code Status: Full Code Disposition: Per Surgical team Vital Signs: Date Time Temp Pulse Resp B/P (MAP) Pulse Ox O2 Delivery O2 Flow Rate FiO2 12/20/17 07:30 94 Nasal Cannula 2.0 12/20/17 07:25 36.7 67 18 147/81 (103) 94 Nasal Cannula 2.0 12/19/17 23:50 94 Nasal Cannula 2.0 12/19/17 23:30 37.2 72 18 138/76 (96) 94 Nasal Cannula 2.0 12/19/17 16:30 95 Nasal Cannula 2.0 12/19/17 15:01 37.1 69 16 129/72 (91) 95 Nasal Cannula 2.0 Lab Results: Results Past 24 Hours Test 12/20/17 07:05 Range/Units Hemoglobin 12.2 12.0-16.0 g/dL Hematocrit 36.2 37-47 % Sodium Level 137 136-145 mmol/L Potassium Level 3.7 3.5-5.1 mmol/L Chloride Level 102 98-107 mmol/L Carbon Dioxide Level 24 21-32 mmol/L Anion Gap 10.0 3-11 mmol/L Blood Urea Nitrogen 12 7-18 mg/dl Creatinine 0.44 0.60-1.20 mg/dl Est Creatinine Clear Calc Drug Dose 122.9 ml/min Estimated GFR () 119.4 Estimated GFR (Non- 103.0 BUN/Creatinine Ratio 26.6 10-20 Random Glucose 86 70-99 mg/dl Calcium Level 8.2 8.5-10.1 mg/dl Phosphorus Level 2.8 2.5-4.9 mg/dl Magnesium Level 1.8 1.8-2.4 mg/dl
[2017-12-19 15:01] VITALS: BP 129/72; PULSE 69; TEMP 37.1; O2SAT 95
[2017-12-19 16:30] VITALS: O2SAT 95
[2017-12-19 23:30] VITALS: BP 138/76; PULSE 72; TEMP 37.2; O2SAT 94
[2017-12-19 23:50] VITALS: O2SAT 94
[2017-12-20] MEDS: SODIUM CHLOR 0.45% + 20MEQ KCL 1,000 ML IV SCH ×3 (00:48→21:19)
[2017-12-20] MEDS: HEPARIN SOD 5000 UNIT/0.5 ML CARP SQ SCH ×2 (06:43→18:18)
--- NOTE | 2017-12-20 06:57 | Surgery Progress Note ---
Surgery Progress Note Date of Service Dec 20, 2017. Subjective some bowel movements- loose no N/V, much improved ur output Objective Vital Signs: Date Time Temp Pulse Resp B/P (MAP) Pulse Ox O2 Delivery O2 Flow Rate FiO2 12/19/17 23:50 94 Nasal Cannula 2.0 12/19/17 23:30 37.2 72 18 138/76 (96) 94 Nasal Cannula 2.0 12/19/17 16:30 95 Nasal Cannula 2.0 12/19/17 15:01 37.1 69 16 129/72 (91) 95 Nasal Cannula 2.0 12/19/17 07:55 37.1 70 20 145/81 (102) 95 Nasal Cannula 2.0 12/19/17 07:10 Nasal Cannula 2.0 General Appearance: no apparent distress Respiratory/Chest: no respiratory distress Abdomen: soft (less distention) Incision(s): intact Laboratory Results: Results Past 24 Hours Test 12/20/17 04:44 Range/Units Assessment & Plan 12/20/17- will try clear liquids, cont IV for now- cont to encourage ambulation in hallway- positive progress- may need a couple more days in hospital to regain strength and adv diet 12/19/17- ileus seems to be resolving- cont sips, decrease IV check labs, Mg/Phos- cont to ambulate overall- some slow progress 12/19/17- ileus seems to be resolving- cont sips, decrease IV check labs, Mg/Phos- cont to ambulate overall- some slow progress
[2017-12-20 07:19] LABS: HEMATOCRIT 36.2 % (37-47); HEMOGLOBIN 12.2 g/dL (12.0-16.0)
[2017-12-20 07:25] VITALS: BP 147/81; PULSE 67; TEMP 36.7; O2SAT 94
[2017-12-20 07:30] VITALS: O2SAT 94
[2017-12-20 07:59] LABS: CALCIUM 8.2 mg/dl (8.5-10.1); CREATININE 0.44 mg/dl (0.60-1.20); PHOSPHORUS 2.8 mg/dl (2.5-4.9); POTASSIUM 3.7 mmol/L (3.5-5.1)
[2017-12-20] MEDS: NYSTATIN SUSP 500,000 U/5 ML UDC PO SCH ×4 (09:00→21:00)
[2017-12-20] MEDS: LISINOPRIL 10 MG TAB PO SCH (09:30)
[2017-12-20] MEDS: ACETAMINOPHEN IV 100 ML IV PRN ×2 (09:35→18:32)
--- NOTE | 2017-12-20 12:31 | Progress Note ---
Internal Med Progress Note Date of Service: Dec 20, 2017. Provider Documentation: SUBJECTIVE: Seen and examined at bedside Abd pain is controlled Denies chest pain, SOB, dizziness Had BM yesterday, +Flatus today Tolerating liquid diet No other complaints OBJECTIVE: Vital Signs-as noted below Physical Exam: General Appearance:Moderately built and nourished, no apparent distress Head: normocephalic, Atraumatic Eyes: normal inspection, EOMI, PERRL Neck: supple, Trachea midline Respiratory/Chest: Normal breath sounds, CTA Cardiovascular: S1, S2, No murmur Abdomen/GI:Soft, Non tender, Bowel sounds present, Surgical site in dressing Extremities/Musculoskelatal:normal inspection, no edema Neurologic/Psych:AAOX3, grossly no focal neurological deficits Skin: normal color, warm Lab data as noted below. ASSESSMENT & PLAN: S/P Right Radical Colectomy and Lysis of adhesions Post Op Day # 5 Abdominal pain is controlled Pathology report:Mixed Goblet cell carcinoid-adenocarcinoma Continue Protonix BID Hb stable Activity/Diet per surgery Surgery following on IV fluids continue Incentive Spirometry leukocytosis normalized clear liquid diet Oral Thrush Started on Nystatin Hypertension Stable Continue lisinopril hydralazine PRN monitor GERD On PPI Dyslipidemia: continue statins DVT Px: On SQ heparin Code Status: Full Code Disposition: Per Surgical team Vital Signs: Date Time Temp Pulse Resp B/P (MAP) Pulse Ox O2 Delivery O2 Flow Rate FiO2 12/20/17 07:30 94 Nasal Cannula 2.0 12/20/17 07:25 36.7 67 18 147/81 (103) 94 Nasal Cannula 2.0 12/19/17 23:50 94 Nasal Cannula 2.0 12/19/17 23:30 37.2 72 18 138/76 (96) 94 Nasal Cannula 2.0 12/19/17 16:30 95 Nasal Cannula 2.0 12/19/17 15:01 37.1 69 16 129/72 (91) 95 Nasal Cannula 2.0 Lab Results: Results Past 24 Hours Test 12/20/17 07:05 Range/Units Hemoglobin 12.2 12.0-16.0 g/dL Hematocrit 36.2 37-47 % Sodium Level 137 136-145 mmol/L Potassium Level 3.7 3.5-5.1 mmol/L Chloride Level 102 98-107 mmol/L Carbon Dioxide Level 24 21-32 mmol/L Anion Gap 10.0 3-11 mmol/L Blood Urea Nitrogen 12 7-18 mg/dl Creatinine 0.44 0.60-1.20 mg/dl Est Creatinine Clear Calc Drug Dose 122.9 ml/min Estimated GFR () 119.4 Estimated GFR (Non- 103.0 BUN/Creatinine Ratio 26.6 10-20 Random Glucose 86 70-99 mg/dl Calcium Level 8.2 8.5-10.1 mg/dl Phosphorus Level 2.8 2.5-4.9 mg/dl Magnesium Level 1.8 1.8-2.4 mg/dl
[2017-12-20] MEDS: PANTOprazole INJ 40 MG in SYRINGE 0 ML IV SCH ×2 (12:34→21:19)
[2017-12-20 15:58] VITALS: BP 111/69; PULSE 70; TEMP 37.2; O2SAT 91
[2017-12-20] MEDS: SIMVASTATIN 40 MG TAB PO SCH (21:00)
[2017-12-20] MEDS: ONDANSETRON INJ 2 MG/ML 2 ML VIAL IV PRN (21:54)
[2017-12-20 22:45] VITALS: BP 136/75; PULSE 67; TEMP 37.2; O2SAT 91
[2017-12-21] VITALS (8 sets, daily range): BP systolic 116–148; BP diastolic 67–82; PULSE 67–77; TEMP 36.7–37; O2SAT 79–96
[2017-12-21] MEDS: PROMETHAZINE HCL INJ 12.5 MG in SODIUM CHLORIDE 0.9% 50ML 50 ML IV PRN ×2 (02:32→11:58)
[2017-12-21] MEDS: SODIUM CHLOR 0.45% + 20MEQ KCL 1,000 ML IV SCH ×2 (06:11→18:31)
[2017-12-21] MEDS: HEPARIN SOD 5000 UNIT/0.5 ML CARP SQ SCH ×2 (06:12→18:33)
[2017-12-21 07:09] LABS: HEMATOCRIT 37.5 % (37-47); HEMOGLOBIN 12.5 g/dL (12.0-16.0); MEAN CELL VOLUME 92.1 fL (80-100); MEAN CORPUSCULAR HEMOGLOBIN 30.7 pg (25-34); MEAN CORPUSCULAR HGB CONC 33.3 g/dl (32-36); MEAN PLATELET VOLUME 10.3 fL (7.4-10.4); PLATELET COUNT 186 K/uL (130-400); RED CELL DISTRIBUTION WIDTH CV 12.7 % (11.5-14.5); RED CELL DISTRIBUTION WIDTH SD 42.5 fL (36.4-46.3); WHITE BLOOD COUNT 10.21 K/uL (4.8-10.8)
[2017-12-21 07:29] LABS: CALCIUM 8.3 mg/dl (8.5-10.1); CREATININE 0.45 mg/dl (0.60-1.20); PHOSPHORUS 3.1 mg/dl (2.5-4.9); POTASSIUM 3.7 mmol/L (3.5-5.1)
--- NOTE | 2017-12-21 07:34 | Surgery Progress Note ---
Surgery Progress Note Date of Service Dec 21, 2017. Subjective + complaints (some Nausea overnight), + ambulating, + bowel movement (small, loose BM), + flatus, + pain controlled, + nausea (overnight), + diet (Clears), No vomiting patient does report some increased bloody/clear drainage from her incisions yesterday and last night - dressings changed per nursing staff. Objective Vital Signs: Date Time Temp Pulse Resp B/P (MAP) Pulse Ox O2 Delivery O2 Flow Rate FiO2 12/21/17 07:19 37.0 67 16 148/82 (104) 94 Nasal Cannula 2.0 12/20/17 23:15 Room Air 12/20/17 22:45 37.2 67 16 136/75 (95) 91 Room Air 12/20/17 16:15 Room Air 12/20/17 15:58 37.2 70 26 111/69 (83) 91 Room Air 12/20/17 07:30 94 Nasal Cannula 2.0 12/20/17 07:25 36.7 67 18 147/81 (103) 94 Nasal Cannula 2.0 General Appearance: no apparent distress, + obese Head: normocephalic, atraumatic Respiratory/Chest: no respiratory distress Abdomen: + distended, + tenderness (Incisional) Incision(s): clean, dry, intact, no erythema, no drainage Laboratory Results: Results Past 24 Hours Test 12/21/17 06:51 Range/Units White Blood Count 10.21 4.8-10.8 K/uL Red Blood Count 4.07 4.2-5.4 M/uL Hemoglobin 12.5 12.0-16.0 g/dL Hematocrit 37.5 37-47 % Mean Corpuscular Volume 92.1 80-100 fL Mean Corpuscular Hemoglobin 30.7 25-34 pg Mean Corpuscular Hemoglobin Concent 33.3 32-36 g/dl RDW Standard Deviation 42.5 36.4-46.3 fL RDW Coefficient of Variation 12.7 11.5-14.5 % Platelet Count 186 130-400 K/uL Mean Platelet Volume 10.3 7.4-10.4 fL Assessment & Plan s/p post right radical colectomy, lysis of dense abdominal adhesion. Abdomen soft, mild-mod distention, Incisional tenderness (expected). incisions c/d/i. On Clears. +flatus, no BM. Reports nausea overnight, still a little nauseated this AM despite anti- emetics. Repeat imaging this AM to evaluate. Keep clears, IVF, ambulate. Contact with questions or concerns. probed incision distal aspect with q tip fascia intact pt has retention sutures intact will get acute abd series to f/u ileus
[2017-12-21] MEDS: ONDANSETRON INJ 2 MG/ML 2 ML VIAL IV PRN (08:04)
--- NOTE | 2017-12-21 08:33 | DIAGNOSTIC IMAGING REPORT ---
ABDOMEN 2VIEW W/PA CHEST RTN HISTORY: 67 years-old Female ileus follow-up study in a patient with ileus COMPARISON: KUB 12/16/2017 TECHNIQUE: PA view the chest with erect and supine views of the abdomen FINDINGS: Cardiac silhouette is within normal limits in size. Linear subsegmental opacity about the lateral left midlung and left lung base. No pneumothorax, pleural effusion or overt pulmonary edema. Surgical clips within the right upper quadrant suggest prior cholecystectomy. Progressive enlargement of multiple small bowel loops noted throughout the abdomen, now measuring up to 5.2 cm, previously measuring up to 3.7 cm. Gas within the large bowel is also noted. Anterior midline skin kami. Surgical suture material projects over the right upper abdomen. No pneumatosis or pneumoperitoneum. No urolith. Levoscoliosis of the lumbar spine. Degenerative changes of the spine and hips. IMPRESSION: 1. Linear left lung base opacity suggest atelectasis. 2. Progressive small bowel dilation with air also noted within the large bowel suggests worsening ileus. The above report was generated using voice recognition software. It may contain grammatical, syntax or spelling errors. Electronically signed by: Carlo Graham M.D. 12/21/2017 8:32 AM Dictated Date/Time: 12/21/2017 8:26 AM
[2017-12-21] MEDS: LISINOPRIL 10 MG TAB PO SCH (08:35)
[2017-12-21] MEDS: NYSTATIN SUSP 500,000 U/5 ML UDC PO SCH ×4 (08:35→21:00)
[2017-12-21] MEDS: PANTOprazole INJ 40 MG in SYRINGE 0 ML IV SCH ×2 (11:12→21:46)
--- NOTE | 2017-12-21 12:04 | Progress Note ---
Internal Med Progress Note Date of Service: Dec 21, 2017. Provider Documentation: SUBJECTIVE: Seen and examined at bedside Had nausea and vomiting earlier today X ray this morning suggestive of worsening Ileus Has nausea overnight as well Abd pain is controlled +Flatus Has some drainage from surgical site overnight Denies chest pain, SOB, dizziness No other complaints OBJECTIVE: Vital Signs-as noted below Physical Exam: General Appearance:Moderately built and nourished, no apparent distress Head: normocephalic, Atraumatic Eyes: normal inspection, EOMI, PERRL Neck: supple, Trachea midline Respiratory/Chest: Normal breath sounds, Basal Crackles Cardiovascular: S1, S2, No murmur Abdomen/GI:Soft, Non tender, Bowel sounds diminished, Surgical site in dressing Extremities/Musculoskelatal:normal inspection, no edema Neurologic/Psych:AAOX3, grossly no focal neurological deficits Skin: normal color, warm Lab data as noted below. ASSESSMENT & PLAN: S/P Right Radical Colectomy and Lysis of adhesions Post Op Day # 4 Abdominal pain is controlled Abd X ray today: suggestive of worsening Ileus NPO for now Pathology report:Mixed goblet call carcinoid-adenocarcionma May need Oncology upon discharge Continue Protonix BID Hb stable Activity/Diet per surgery Surgery following on IV fluids continue Incentive Spirometry leukocytosis normalized Hypertension continue lisinopril hydralazine PRN monitor Hypomagnesium: Replace mag supplements monitor GERD On PPI Dyslipidemia: continue statins Atelectasis: Incentive Spirometry Encourage to ambulate DVT Px: On SQ heparin Code Status: Full Code Disposition: Per Surgical team Vital Signs: Date Time Temp Pulse Resp B/P (MAP) Pulse Ox O2 Delivery O2 Flow Rate FiO2 12/21/17 10:13 79 Room Air 12/21/17 10:13 94 Nasal Cannula 2.0 Humidified Air 12/21/17 08:42 92 Room Air 12/21/17 07:45 91 Room Air 12/21/17 07:19 37.0 67 16 148/82 (104) 94 Nasal Cannula 2.0 12/20/17 23:15 Room Air 12/20/17 22:45 37.2 67 16 136/75 (95) 91 Room Air 12/20/17 16:15 Room Air 12/20/17 15:58 37.2 70 26 111/69 (83) 91 Room Air Lab Results: Results Past 24 Hours Test 12/21/17 06:51 Range/Units White Blood Count 10.21 4.8-10.8 K/uL Red Blood Count 4.07 4.2-5.4 M/uL Hemoglobin 12.5 12.0-16.0 g/dL Hematocrit 37.5 37-47 % Mean Corpuscular Volume 92.1 80-100 fL Mean Corpuscular Hemoglobin 30.7 25-34 pg Mean Corpuscular Hemoglobin Concent 33.3 32-36 g/dl RDW Standard Deviation 42.5 36.4-46.3 fL RDW Coefficient of Variation 12.7 11.5-14.5 % Platelet Count 186 130-400 K/uL Mean Platelet Volume 10.3 7.4-10.4 fL Sodium Level 137 136-145 mmol/L Potassium Level 3.7 3.5-5.1 mmol/L Chloride Level 104 98-107 mmol/L Carbon Dioxide Level 26 21-32 mmol/L Anion Gap 7.0 3-11 mmol/L Blood Urea Nitrogen 9 7-18 mg/dl Creatinine 0.45 0.60-1.20 mg/dl Est Creatinine Clear Calc Drug Dose 120.2 ml/min Estimated GFR () 118.5 Estimated GFR (Non- 102.2 BUN/Creatinine Ratio 20.6 10-20 Random Glucose 99 70-99 mg/dl Calcium Level 8.3 8.5-10.1 mg/dl Phosphorus Level 3.1 2.5-4.9 mg/dl Magnesium Level 1.7 1.8-2.4 mg/dl
[2017-12-21] MEDS ORDERED: MAGNESIUM SULFATE 1GM / D5W 100 ML IV STA (12:10)
--- NOTE | 2017-12-21 14:48 | SURGERY PROGRESS NOTE ---
DATE: 12/21/2017 FOLLOWUP NOTE Since I saw Mendy this morning I came back and checked on her after she had her acute abdominal series that showed small bowel distension and some gas in the colon. I came and I explained the situation to her and her was present. Patient apparently had an emesis about 11:30 this morning. Right now she is not feeling nauseated. She would like to have just a Paul cracker if possible. She has not moved her bowels. At this point, I had offered her to put an NG tube back in place, but she would rather not have it. I suspect that she will continue to open up. We just could cutting back her oral intake. She will be just n.p.o. except meds. Her labs were noted. Her path was similarly discussed with the patient and her .
[2017-12-21] MEDS: SIMVASTATIN 40 MG TAB PO SCH (21:00)
[2017-12-22] MEDS: SODIUM CHLOR 0.45% + 20MEQ KCL 1,000 ML IV SCH ×2 (05:47→23:57)
[2017-12-22] MEDS: HEPARIN SOD 5000 UNIT/0.5 ML CARP SQ SCH ×2 (05:48→19:29)
[2017-12-22] MEDS ORDERED: FUROSEMIDE INJ 10 MG in SYRINGE 0 ML IV ONE (06:15)
[2017-12-22 06:43] LABS: CALCIUM 7.7 mg/dl (8.5-10.1); CREATININE 0.44 mg/dl (0.60-1.20); POTASSIUM 3.9 mmol/L (3.5-5.1)
--- NOTE | 2017-12-22 07:03 | Surgery Progress Note ---
Surgery Progress Note Date of Service Dec 22, 2017. Subjective + feeling well, + ambulating, + bowel movement, + flatus, + pain controlled, + diet (Tolerating clears), No complaints, No nausea, No vomiting Objective Vital Signs: Date Time Temp Pulse Resp B/P (MAP) Pulse Ox O2 Delivery O2 Flow Rate FiO2 12/21/17 23:15 Nasal Cannula 2.0 Humidified Oxygen 12/21/17 23:05 37.0 69 16 116/67 (83) 93 Nasal Cannula 2.0 Humidified Oxygen 12/21/17 15:26 36.7 77 17 130/73 (92) 93 Room Air 12/21/17 15:10 Nasal Cannula 2.0 Humidified Oxygen 12/21/17 13:51 96 Nasal Cannula 2.0 Humidified Oxygen 12/21/17 13:50 86 Room Air 12/21/17 10:13 79 Room Air 12/21/17 10:13 94 Nasal Cannula 2.0 Humidified Air 12/21/17 08:42 92 Room Air 12/21/17 07:45 91 Room Air 12/21/17 07:19 37.0 67 16 148/82 (104) 94 Nasal Cannula 2.0 General Appearance: no apparent distress, + obese Head: normocephalic, atraumatic Respiratory/Chest: no respiratory distress Abdomen: non distended, soft, no organomegaly, + tenderness (Incisional, minimal) Incision(s): clean, dry, intact, no erythema, drainage (mild, decreased ) Laboratory Results: Results Past 24 Hours Test 12/22/17 05:37 Range/Units Sodium Level 138 136-145 mmol/L Potassium Level 3.9 3.5-5.1 mmol/L Chloride Level 105 98-107 mmol/L Carbon Dioxide Level 27 21-32 mmol/L Anion Gap 6.0 3-11 mmol/L Blood Urea Nitrogen 10 7-18 mg/dl Creatinine 0.44 0.60-1.20 mg/dl Est Creatinine Clear Calc Drug Dose 126.2 ml/min Estimated GFR () 119.4 Estimated GFR (Non- 103.0 BUN/Creatinine Ratio 23.2 10-20 Random Glucose 82 70-99 mg/dl Calcium Level 7.7 8.5-10.1 mg/dl Magnesium Level 1.8 1.8-2.4 mg/dl Assessment & Plan 12/22/17: s/p post right radical colectomy, lysis of dense abdominal adhesion. Abdomen soft, non-distended, minimal incisional tenderness. Drainage from incision site decreased. Tolerating clears, no N/V. +flatus, +BM. KUB yesterday showed continued ileus - since has had multiple bowel movements and improvement in abdominal distention. Full liquids this AM, ADAT. IVF decreased. Lasix injection this AM. Possible D/C tomorrow if she continues to do well. Findings discussed with Dr. Pérez. Please contact with questions or concerns. s/p post right radical colectomy, lysis of dense abdominal adhesion. Abdomen soft, mild-mod distention, Incisional tenderness (expected). incisions c/d/i. On Clears. +flatus, no BM. Reports nausea overnight, still a little nauseated this AM despite anti- emetics. Repeat imaging this AM to evaluate. Keep clears, IVF, ambulate. Contact with questions or concerns.
--- NOTE | 2017-12-22 07:05 | SURGERY PROGRESS NOTE ---
DATE: 12/22/2017 Mendy is doing very well. She had a good night. She has had multiple bowel movements. She is not longer nauseated. Her last vitals showed a temperature of 37, pulse 69, respirations 16, blood pressure 116/67, O2 sats 93 on 2 liters. The I and O not recorded the urine output, but her weight was recorded yesterday and it is 87-88 kilograms, on admission she was 82, so a lot of it may be just still fluid retention. The abdomen is softer. At this point, we will start her on full-liquid diet and cut down her IVs. I am going to give her a touch of Lasix, discontinue her oxygen and hopefully try to activate her more and go home tomorrow.
[2017-12-22 07:10] VITALS: O2SAT 94
[2017-12-22 07:58] VITALS: BP 112/67; PULSE 76; TEMP 36.7; O2SAT 93
[2017-12-22 08:23] VITALS: O2SAT 93
[2017-12-22] MEDS: LISINOPRIL 10 MG TAB PO SCH (08:44)
[2017-12-22] MEDS: NYSTATIN SUSP 500,000 U/5 ML UDC PO SCH ×4 (09:05→21:34)
[2017-12-22] MEDS: PANTOprazole INJ 40 MG in SYRINGE 0 ML IV SCH ×2 (11:08→21:34)
[2017-12-22 11:50] VITALS: BP 131/77; PULSE 70; TEMP 36.8; O2SAT 95
[2017-12-22] MEDS ORDERED: MAGNESIUM SULFATE 1GM / D5W 100 ML IV STA (11:52)
--- NOTE | 2017-12-22 12:11 | Hospitalist Progress Note ---
Hospitalist Progress Note Date of Service Dec 22, 2017. (Elizabeth Cooney PA-C) Subjective Pt evaluation today including: conversation w/ patient, physical exam, chart review, lab review Pt seen, sitting up in bed. She reports feeling better this morning. Reports BM' s yesterday and small watery BM this morning and since she has much decreased abdominal pain and feels pain is controlled. +burping. +flatus. Some abdominal bloating this morning and pt was given lasix. Today started liquid diet and this morning tolerated some cream of wheat. Denies any vomiting since yesterday morning, her IV fluids decreased. Pt states has been ambulating. Denies fever/ chills, BAUTISTA, dizziness, CP, SOB, orthopnea, extremity edema. (Elizabeth Cooney PA-C) Pt evaluation today including: conversation w/ patient, physical exam, lab review (Salazar Ochoa M.D.) Objective Vital Signs Date Time Temp Pulse Resp B/P (MAP) Pulse Ox O2 Delivery O2 Flow Rate FiO2 12/22/17 08:23 93 Room Air 12/22/17 07:58 36.7 76 16 112/67 (82) 93 Room Air 12/22/17 07:10 94 Room Air 12/21/17 23:15 Nasal Cannula 2.0 Humidified Oxygen 12/21/17 23:05 37.0 69 16 116/67 (83) 93 Nasal Cannula 2.0 Humidified Oxygen 12/21/17 15:26 36.7 77 17 130/73 (92) 93 Room Air 12/21/17 15:10 Nasal Cannula 2.0 Humidified Oxygen 12/21/17 13:51 96 Nasal Cannula 2.0 Humidified Oxygen 12/21/17 13:50 86 Room Air (Elizabeth Cooney PA-C) Physical Exam General Appearance: WD/WN, no apparent distress Eyes: normal inspection, sclerae normal ENT: hearing grossly normal, + pertinent finding (mucous membranes moist, mild white plaque noted to tongue) Neck: supple, trachea midline Respiratory/Chest: lungs clear, normal breath sounds, no respiratory distress Cardiovascular: regular rate, rhythm Abdomen: + pertinent finding (surgical incision without discharge noted at this time, bowel sounds present, soft, some tenderness to palpation) Extremities: normal range of motion, non-tender, no pedal edema, normal capillary refill Neurologic/Psychiatric: alert, normal mood/affect, oriented x 3 Skin: warm/dry (Elizabeth Cooney PA-C) Laboratory Results Last 24 Hours Test 12/22/17 05:37 Sodium Level 138 mmol/L Potassium Level 3.9 mmol/L Chloride Level 105 mmol/L Carbon Dioxide Level 27 mmol/L Anion Gap 6.0 mmol/L Blood Urea Nitrogen 10 mg/dl Creatinine 0.44 mg/dl Est Creatinine Clear Calc Drug Dose 126.2 ml/min Estimated GFR () 119.4 Estimated GFR (Non- 103.0 BUN/Creatinine Ratio 23.2 Random Glucose 82 mg/dl Calcium Level 7.7 mg/dl Magnesium Level 1.8 mg/dl (Elizabeth Cooney PA-C) Assessment and Plan S/P RIGHT RADICAL COLECTOMY & LYSIS OF ADHESIONS POST OP DAY#7 Today abdominal pain controlled. Had BM's yesterday with overall decreased abdominal pain Had dose lasix for abdominal distension, her IV fluids decreased and started liquid diet. tolerated some cream of wheat this morning. No further vomiting. Hgb stable, no leukocytosis yesterday Pathology report:Mixed goblet call carcinoid-adenocarcionma -pain management per ortho -wound management per ortho -PT/OT as appropriate -incentive spirometry -continue protonix HTN Stable -continue lisinopril -hydralazine prn HYPOMAGNESIA Mag 1.7 yesterday to mag of 1.8 this morning after 1gm magnesium yesterday -monitor magnesium lab ATELECTASIS -incentive spirometry -ambulate ORAL THRUSH -nystatin GERD -continue PPI DYSLIPIDEMIA -continue simvastatin DVT Prophylaxis -Heparin SQ Full Code Disposition per surgical team Follows with Dr Navarro for routine care Pt was seen with Dr Ochoa. See addendum (Elizabeth Cooney PA-C) Pt was seen with Dr Ochoa. See addendum I have seen and assess the patient with WILLY Green and agree with the general assessment and plan as above and would like to add: that this is a patient of general surgery team with right colectomy and lysis of adhesions with pathology report Mixed goblet call carcinoid-adenocarcinoma. Pain management seem as to be adeqaute and patient denies acute abdominal pain. Patient denies vomiting. Patient continues to be followed by general surgery team and now on full-liquid diet Patient has hypomagnesemia and 1 gram of IV magnesium given Patient's blood pressure controlled by lisinopril and hydralazine prn Other issues ATELECTASIS -incentive spirometry -ambulate ORAL THRUSH -nystatin GERD -continue PPI DYSLIPIDEMIA -continue simvastatin DVT Prophylaxis -Heparin SQ Full Code Physical Exam General Appearance: no apparent distress Eyes: normal inspection, sclerae normal ENT: hearing grossly normal Neck: supple, trachea midline Respiratory/Chest: lungs clear, normal breath sounds, no respiratory distress Cardiovascular: regular rate, rhythm Abdomen: in dressing Extremities: normal range of motion, non-tender, no pedal edema, normal capillary refill Neurologic/Psychiatric: alert, normal mood/affect, oriented x 3 (Salazar Ochoa M.D.)
[2017-12-22] MEDS: ACETAMINOPHEN IV 100 ML IV PRN (13:34)
[2017-12-22 15:23] VITALS: BP 116/73; PULSE 69; TEMP 37.1; O2SAT 92
[2017-12-22] MEDS: ONDANSETRON INJ 2 MG/ML 2 ML VIAL IV PRN ×2 (19:30→23:57)
[2017-12-22] MEDS: SIMVASTATIN 40 MG TAB PO SCH (21:00)
[2017-12-22 22:57] VITALS: BP 127/72; PULSE 71; TEMP 37.2; O2SAT 91
[2017-12-23] MEDS: HEPARIN SOD 5000 UNIT/0.5 ML CARP SQ SCH (05:34)
--- NOTE | 2017-12-23 07:33 | Surgery Progress Note ---
Surgery Progress Note Date of Service Dec 23, 2017. Subjective Post OP Day: 8 + ambulating, + bowel movement (x2 this AM), + nausea (last night), + diet ( full liquids) Objective Vital Signs: Date Time Temp Pulse Resp B/P (MAP) Pulse Ox O2 Delivery O2 Flow Rate FiO2 12/22/17 23:15 Room Air 12/22/17 22:57 37.2 71 17 127/72 (90) 91 Room Air 12/22/17 16:10 Room Air 12/22/17 15:23 37.1 69 17 116/73 (87) 92 Room Air 12/22/17 11:50 36.8 70 16 131/77 (95) 95 Room Air 12/22/17 08:23 93 Room Air 12/22/17 07:58 36.7 76 16 112/67 (82) 93 Room Air Abdomen: soft, + distended (minimal) Incision(s): drainage (serous from lower pole) Laboratory Results: Results Past 24 Hours Test 12/23/17 04:44 Range/Units Assessment & Plan right hemicolectomy, resolving ileus advance diet recheck later today seen earlier by Dr. Pérez
[2017-12-23 07:40] VITALS: BP 121/72; PULSE 70; TEMP 36.5; O2SAT 91
--- NOTE | 2017-12-23 08:01 | SURGERY PROGRESS NOTE ---
DATE: 12/23/2017 Mendy last evening said she felt a little bit nauseated. She was assured it had been related to the oral thrush that she has and being treated for it. She is continued to move her bowels. This morning she feels a little bit better. She is not nauseated. She wants to try something more to eat today. We will give her a regular diet, so she can pick and choose which she wants. The abdomen is soft. The incision is intact. The drainage in the inferior aspect of the incision is serous, minimal. Her last vitals showed a temperature 37.2, pulse 71, respirations 17, blood pressure 127/70, O2 sats 91 on room air. The lab is pending this morning. We did give her a touch of Lasix yesterday. Her weight had been up mostly for fluid. She still at 50 mL an hour. We will try to back up on that at this time and hopefully encourage on more oral intake. We will keep her here until she feels more comfortable with oral intake and moving her bowels.
[2017-12-23 08:12] LABS: HEMATOCRIT 38.6 % (37-47); HEMOGLOBIN 12.9 g/dL (12.0-16.0); MEAN CELL VOLUME 92.1 fL (80-100); MEAN CORPUSCULAR HEMOGLOBIN 30.8 pg (25-34); MEAN CORPUSCULAR HGB CONC 33.4 g/dl (32-36); MEAN PLATELET VOLUME 11.1 fL (7.4-10.4); PLATELET COUNT 224 K/uL (130-400); RED CELL DISTRIBUTION WIDTH CV 13.1 % (11.5-14.5); RED CELL DISTRIBUTION WIDTH SD 43.6 fL (36.4-46.3); WHITE BLOOD COUNT 6.37 K/uL (4.8-10.8)
[2017-12-23 08:49] LABS: CALCIUM 8.1 mg/dl (8.5-10.1); CREATININE 0.49 mg/dl (0.60-1.20); POTASSIUM 3.7 mmol/L (3.5-5.1)
[2017-12-23] MEDS: LISINOPRIL 10 MG TAB PO SCH (08:59)
[2017-12-23] MEDS: PANTOprazole INJ 40 MG in SYRINGE 0 ML IV SCH (11:00)
[2017-12-23] MEDS ORDERED: FUROSEMIDE 20 MG TAB PO ONE (14:00)
--- NOTE | 2017-12-23 14:26 | Progress Note ---
Internal Med Progress Note Date of Service: Dec 23, 2017. Provider Documentation: Internal Medicine Consult follow up note Subjective Patient denies chest pain or shortness of breath. Reports concern of leg swelling. Physical Exam General Appearance: no apparent distress Eyes: normal inspection, sclerae normal ENT: hearing grossly normal Neck: supple, trachea midline Respiratory/Chest: lungs clear, normal breath sounds, no respiratory distress Cardiovascular: regular rate, rhythm Abdomen: in dressing Extremities: normal range of motion, non-tender, lower extremity edema bilaterally Neurologic/Psychiatric: alert, normal mood/affect, oriented x 3 ASSESSMENT & PLAN: Internal Medicine Consult follow up note This is a patient of general surgery team with right colectomy and lysis of adhesions with pathology report Mixed goblet call carcinoid-adenocarcinoma. Pain management seem as to be adeqaute and patient denies acute abdominal pain. Patient denies vomiting. Patient continues to be followed by general surgery team and now on regular diet Patient doing well post-operatively However with bilateral lower extremity edema ultrasound of lower extremities ordered to rule out deep vein thrombosis Other issues Patient's atelectasis appears to be resolving as she breaths on room air and ambulates Hypomagnesemia resolved Patient's blood pressure controlled by lisinopril and hydralazine prn completed a course of nystatin given for oral thrush GERD, continue PPI DYSLIPIDEMIA, continue simvastatin DVT Prophylaxis: Heparin SQ Full Code Vital Signs: Date Time Temp Pulse Resp B/P (MAP) Pulse Ox O2 Delivery O2 Flow Rate FiO2 12/23/17 08:05 Room Air 12/23/17 07:40 36.5 70 16 121/72 (88) 91 Room Air 12/22/17 23:15 Room Air 12/22/17 22:57 37.2 71 17 127/72 (90) 91 Room Air 12/22/17 16:10 Room Air 12/22/17 15:23 37.1 69 17 116/73 (87) 92 Room Air Lab Results: Results Past 24 Hours Test 12/23/17 07:57 Range/Units White Blood Count 6.37 4.8-10.8 K/uL Red Blood Count 4.19 4.2-5.4 M/uL Hemoglobin 12.9 12.0-16.0 g/dL Hematocrit 38.6 37-47 % Mean Corpuscular Volume 92.1 80-100 fL Mean Corpuscular Hemoglobin 30.8 25-34 pg Mean Corpuscular Hemoglobin Concent 33.4 32-36 g/dl RDW Standard Deviation 43.6 36.4-46.3 fL RDW Coefficient of Variation 13.1 11.5-14.5 % Platelet Count 224 130-400 K/uL Mean Platelet Volume 11.1 7.4-10.4 fL Sodium Level 137 136-145 mmol/L Potassium Level 3.7 3.5-5.1 mmol/L Chloride Level 103 98-107 mmol/L Carbon Dioxide Level 25 21-32 mmol/L Anion Gap 9.0 3-11 mmol/L Blood Urea Nitrogen 10 7-18 mg/dl Creatinine 0.49 0.60-1.20 mg/dl Est Creatinine Clear Calc Drug Dose 113.3 ml/min Estimated GFR () 115.2 Estimated GFR (Non- 99.4 BUN/Creatinine Ratio 20.6 10-20 Random Glucose 95 70-99 mg/dl Calcium Level 8.1 8.5-10.1 mg/dl Magnesium Level 2.0 1.8-2.4 mg/dl
--- NOTE | 2017-12-23 14:52 | DIAGNOSTIC IMAGING REPORT ---
BILATERAL LOWER EXTREMITY VENOUS DOPPLER CLINICAL HISTORY: rule out DVT COMPARISON STUDY: No previous studies for comparison. TECHNIQUE: Sonography of the deep venous system of the bilateral lower extremities was performed. Compression and augmentation were evaluated. FINDINGS: Note is made of nonocclusive deep venous thrombus within the right posterior tibial and peroneal veins. No above the knee thrombus is identified. The left common femoral, superficial femoral and popliteal veins were compressible. Augmentation was normal. Flow was shown within the deep calf vessels. IMPRESSION: 1. Nonocclusive deep venous thrombus within the right posterior tibial and peroneal veins. 2. No evidence of deep venous thrombus within the left lower extremity. Electronically signed by: Sergey Rodriguez M.D. 12/23/2017 2:51 PM Dictated Date/Time: 12/23/2017 2:49 PM
[2017-12-23 15:02] VITALS: BP 121/72; PULSE 71; TEMP 36.7; O2SAT 93
[2017-12-23] MEDS ORDERED: ENOXAPARIN 100 MG/1ML SYR SQ ONE (16:00)
[2017-12-23] MEDS: SIMVASTATIN 40 MG TAB PO SCH (21:00)
[2017-12-23] MEDS: PANTOprazole SOD 40 MG TAB PO SCH (21:20)
[2017-12-23 23:15] VITALS: BP 112/70; PULSE 72; TEMP 37.1; O2SAT 91
[2017-12-24] MEDS ORDERED: ENOXAPARIN 100 MG/1ML SYR SQ SCH (06:00)
--- NOTE | 2017-12-24 06:24 | SURGERY PROGRESS NOTE ---
DATE: 12/24/2017 Mendy is doing well. She is quite anxious about going home. She feels like she has to make all decisions on her own. I asked her the possibility of going to rehab for a while, but she rather not do that. She asked if she could have home care look at her incision so an order was placed for discharge planning. Her last vitals showed a temperature of 37.1, pulse 72, respirations 16, blood pressure 112/70, O2 sats 91 on room air. She is tolerating a regular diet. Her bowels are moving. The incision is free of any further drainage. The retention sutures are intact. The kami are intact. Yesterday, I discussed with the medical service. A venous Doppler was obtained, which showed a nonocclusive deep venous thrombus in the right posterior tibial and peroneal veins. With this recommended that we probably should consider anticoagulation due to the fact that she also had a carcinoma. This we will make arrangements. From my point of view, once the discharge planning is fully executed, the patient can be discharged. We will see her back in the office in approximately 1 week and take out her kami.
[2017-12-24 06:56] LABS: HEMATOCRIT 37.7 % (37-47); HEMOGLOBIN 12.9 g/dL (12.0-16.0); MEAN CORPUSCULAR HEMOGLOBIN 31.5 pg (25-34); MEAN CORPUSCULAR HGB CONC 34.2 g/dl (32-36); MEAN PLATELET VOLUME 11.1 fL (7.4-10.4); PLATELET COUNT 224 K/uL (130-400); RED CELL DISTRIBUTION WIDTH CV 13.2 % (11.5-14.5); RED CELL DISTRIBUTION WIDTH SD 43.8 fL (36.4-46.3); WHITE BLOOD COUNT 6.67 K/uL (4.8-10.8)
[2017-12-24 07:18] VITALS: BP 115/67; PULSE 70; TEMP 37.2; O2SAT 92
[2017-12-24 07:25] LABS: CREATININE 0.57 mg/dl (0.60-1.20)
[2017-12-24] MEDS: LISINOPRIL 10 MG TAB PO SCH (08:57)
[2017-12-24] MEDS: PANTOprazole SOD 40 MG TAB PO SCH (08:57)
--- NOTE | 2017-12-24 11:11 | Consultant Recommendations ---
Manager [employer] Recommendations Date of Service Dec 24, 2017. Manager [employer] Recommendations Internal Medicine Consult follow up note Subjective Patient denies chest pain or shortness of breath. Denies acute abdominal pain Physical Exam General Appearance: no apparent distress Eyes: normal inspection, sclerae normal ENT: hearing grossly normal Neck: supple, trachea midline Respiratory/Chest: lungs clear, normal breath sounds, no respiratory distress Cardiovascular: regular rate, rhythm Abdomen: Extremities: normal range of motion, non-tender, lower extremity edema bilaterally Neurologic/Psychiatric: alert, normal mood/affect, oriented x 3 ASSESSMENT & PLAN: Internal Medicine Consult discharge recommendations This is a patient of general surgery team with right colectomy and lysis of adhesions with pathology report Mixed goblet call carcinoid-adenocarcinoma. Ultrasound lower extremity 12/23/17 1. Nonocclusive deep venous thrombus within the right posterior tibial and peroneal veins. 2. No evidence of deep venous thrombus within the left lower extremity. Discussed with general surgeon Dr. Bueno about findings on 12/23/17 General surgeon agrees that despite being a distal DVT, that given patient's malignancy history that she should be on anticoagulation even though the DVT does not involve proximal veins at this time Lovenox 90 mg/kg q12 hours ordered by medicine consult. Patient should be discharged with this Lovenox dose for at least 3 month course. Patient should follow up with primary care doctor on discharge on further length and duration of anticoagulation Other issues continue other home medications of for hypertension, dyslipedmia and GERD
[2017-12-24] MEDS ORDERED: LVNIS100 SQ (11:12)
[2017-12-24 15:11] VITALS: BP 115/67; PULSE 70; TEMP 37.2; O2SAT 92
--- NOTE | 2017-12-24 22:14 | DISCHARGE SUMMARY ---
PRIMARY DISCHARGE DIAGNOSES: 1. 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 2. Postoperative ileus. 3. Right lower extremity deep venous thrombosis. 4. Oral candidiasis. SECONDARY DISCHARGE DIAGNOSES: 1. Hypertension. 2. Gastroesophageal reflux disease. 3. Dyslipidemia. CONSULTATIONS: [facility] to assist in medical management. PROCEDURE PERFORMED: Laparotomy with lysis of dense abdominal adhesions, right radical colectomy with [id number] ileocolonic anastomosis. HOSPITAL COURSE: The patient is a 67-year-old female recently underwent appendectomy, which showed features of carcinoid tumor at the staple line, now taken back to the operating room for right radical colectomy. Procedure was well tolerated. She was transferred to the surgical floor. Subcutaneous heparin was used for DVT prophylaxis. Postoperative day 1, she was bloated and nauseated. Nasogastric tube was placed. She had some difficulty with that over the next few days. It was irritating her throat. We repositioned the NG and irrigated it several times. By day #3, the drainage had decreased and the NG was removed. This facilitated an increase in her activity as well. By day 4, she was having a scant amount of flatus. By day 5, she began having several loose bowel movements. She was started on a clear liquid diet which she did not tolerate very well. She was having some nausea overnight and x-rays were again consistent with an ileus. By the next day she began having multiple bowel movements. She was able to tolerate full liquids. She was given Nystatin for oral thrush. Her blood pressure was well maintained. She was diuresed with Lasix. She continued to have some swelling in her legs. An ultrasound was ordered and showed a DVT in the right posterior tibial and peroneal veins. She was started on Lovenox for that. She was able to tolerate a regular diet between day 8 and day 9. She was having minimal pain. Once arrangements were made for home health, she was stable for discharge on postoperative day 9. DISCHARGE INSTRUCTIONS: Discharge home with home health. She has retention sutures. Will evaluate removing those in the office next week. She will see Dr. Pérez next week. She will also follow up with Dr. Navarro next week for continued DVT management. She has had some serous drainage from her incision where we had placed a Gustavo drain. She can shower. Continue to keep the lower aspect of her wound covered until the drainage stops. DISCHARGE MEDICATIONS: Lovenox 90 mg subQ every 12 hours and Percocet 1-2 tablets every 4 hours as needed. Continue her home medications, Lisinopril 10 mg daily, Mobic 7.5 mg daily, Prilosec 20 mg daily, Zantac 75 mg b.i.d., Zocor 40 mg daily, vitamin D supplement 1000 units daily. PATHOLOGY: Right colon showed residual tumor measuring 1 cm at the previous appendectomy site. On the previous specimen, the tumor infiltrated in the subserosal tissue and was staged as pT3. There were 11 regional lymph nodes sampled, none of which were involved (0/11). MTDD
== END 2017-12-24 16:00 | disposition home health service (06) | DRG 330 ==
LOC: C.ACU 05:10 → C.MSN 06:20 → ENRESERV 10:09
PROVIDERS: ADMIT Surgery; ATTEND Surgery
PROC: 0DNW0ZZ Release Peritoneum, Open Approach (ICD-10-PCS; principal; 2017-12-15 07:00)
PROC: 0DTF0ZZ Resection of Right Large Intestine, Open Approach (ICD-10-PCS; principal; 2017-12-15 07:00)
DX: C18.1 Malignant neoplasm of appendix (principal); K91.89 Other postprocedural complications and disorders of digestive system; B37.0 Candidal stomatitis; J98.11 Atelectasis; I82.441 Acute embolism and thrombosis of right tibial vein; K66.0 Peritoneal adhesions (postprocedural) (postinfection); E83.42 Hypomagnesemia; I10 Essential (primary) hypertension; K21.9 Gastro-esophageal reflux disease without esophagitis; E78.5 Hyperlipidemia, unspecified; Z79.899 Other long term (current) drug therapy

== ENCOUNTER 2018-01-04 21:32 | Emergency (ER) | payer OTHER ==
[~2018-01-04] VITALS: Ht 162.6 cm; Wt 76.3 kg
[~2018-01-04 21:32] MED LIST changes: +AMOXICILLIN/CLAV POTAS 600 MG/42.9MG/5 ML 75 ML PO SCH; +LVNIS100 SQ; +OXYC-57 PO
[2018-01-04 21:54] VITALS: TEMP 37.1; Ht 162.6 cm; Wt 76.3 kg
[2018-01-04 22:35] LABS: BASO % 0.3 %; BASO ABS # 0.03 K/uL (0-0.2); EOS % 0.9 %; EOS ABS # 0.09 K/uL (0-0.5); HEMATOCRIT 36.7 % (37-47); HEMOGLOBIN 12.3 g/dL (12.0-16.0); IG# 0.03 K/uL (0.00-0.02); LYMPH % 21.6 %; LYMPH ABS # 2.26 K/uL (1.2-3.4); MEAN CELL VOLUME 93.6 fL (80-100); MEAN CORPUSCULAR HEMOGLOBIN 31.4 pg (25-34); MEAN CORPUSCULAR HGB CONC 33.5 g/dl (32-36); MEAN PLATELET VOLUME 9.5 fL (7.4-10.4); MONO % 8.4 %; MONO ABS # 0.88 K/uL (0.11-0.59); NEUT % 68.5 %; NEUT ABS # 7.17 K/uL (1.4-6.5); PLATELET COUNT 395 K/uL (130-400); RED CELL DISTRIBUTION WIDTH CV 13.4 % (11.5-14.5); RED CELL DISTRIBUTION WIDTH SD 45.7 fL (36.4-46.3); WHITE BLOOD COUNT 10.46 K/uL (4.8-10.8)
[2018-01-04] MEDS ORDERED: LIDOCAINE 1% BUFFERED INJ 20 ML VIAL ONE (22:47)
[2018-01-04 22:51] LABS: CALCIUM 8.4 mg/dl (8.5-10.1); CREATININE 0.56 mg/dl (0.60-1.20); POTASSIUM 3.7 mmol/L (3.5-5.1)
[2018-01-04] MEDS ORDERED: ASPI1TAB48 PO (23:16)
--- NOTE | 2018-01-04 23:20 | Surgery Consultation ---
Consultation Date of Consultation: Jan 04, 2018. Attending Physician: Reason for Consultation: Draining wound. History of Present Illness Mendy is a 67F, known to me, who presented to the ED this evening with bloody/ clear/yellow drainage from her midline longitudinal abdominal incision s/p right radical colectomy due to appendiceal cancer with Dr. Pérez on . Patient reports she was seen in the general surgery clinic this past Thursday where she had her retention sutures removed. She was doing well at that visit and has been doing well up until today where she noticed some drainage from the lower part of her midline incision. Denies fever, chills. Denies any significant pain but she does feel it is mildly tender to touch. She also reports some redness around the incision. Family History FH: breast cancer SISTER FH: colon cancer MOTHER FH: lung cancer FATHER Social History Smoking Status: Current Every Day Smoker Marital Status: Housing Status: lives with significant other Occupation Status: retired Allergies Coded Allergies: Sulfa Drugs (Unverified Adverse Reaction, Unknown, NAUSEA AND VOMITING, ) Uncoded Allergies: "ANTIBIOTICS" (Adverse Reaction, Unknown, THRUSH, 10/13/04) Home Medications Scheduled Cholecalciferol (Vitamin D3), 1,000 UNITS PO DAILYBB Enoxaparin (Enoxaparin Sodium), 90 MG SQ Q12H Lisinopril (Lisinopril), 10 MG PO QAM Meloxicam (Mobic), 7.5 MG PO QAM Omeprazole (Prilosec), 20 MG PO DAILYBB Ranitidine HCl (Ranitidine 75), 1 TAB PO BID Simvastatin (Zocor), 40 MG PO QD@ 1999 Scheduled PRN Oxycodone/Acetaminophen 5MG/325MG (Percocet 5MG/325MG), 1-2 TABLETS PO Q4H PRN for Pain Review of Systems Constitutional: No fever, No chills Abdomen: + pain (mild pain around midline incision), No nausea, No vomiting Integumentary: + problem reported (pain and redness at lower part of midline incision) Physical Exam Date Time Temp Pulse Resp B/P (MAP) Pulse Ox O2 Delivery O2 Flow Rate FiO2 01/04/18 21:54 37.1 80 18 120/71 96 Room Air General Appearance: WD/WN, no apparent distress Head: normocephalic, atraumatic ENT: hearing grossly normal Respiratory/Chest: no respiratory distress Abdomen/GI: soft, + tenderness (mild TTP around lower part of incision) Skin: + pertinent finding (about 1 cm of wound dehiscense at lower margin of midline incision with serosang/yellow drainage present. Mild erythema surrounding site with associated mild TTP.) Laboratory Results Last 24 Hours Test 01/04/18 22:25 White Blood Count 10.46 K/uL Red Blood Count 3.92 M/uL Hemoglobin 12.3 g/dL Hematocrit 36.7 % Mean Corpuscular Volume 93.6 fL Mean Corpuscular Hemoglobin 31.4 pg Mean Corpuscular Hemoglobin Concent 33.5 g/dl Platelet Count 395 K/uL Mean Platelet Volume 9.5 fL Neutrophils (%) (Auto) 68.5 % Lymphocytes (%) (Auto) 21.6 % Monocytes (%) (Auto) 8.4 % Eosinophils (%) (Auto) 0.9 % Basophils (%) (Auto) 0.3 % Neutrophils # (Auto) 7.17 K/uL Lymphocytes # (Auto) 2.26 K/uL Monocytes # (Auto) 0.88 K/uL Eosinophils # (Auto) 0.09 K/uL Basophils # (Auto) 0.03 K/uL RDW Standard Deviation 45.7 fL RDW Coefficient of Variation 13.4 % Immature Granulocyte % (Auto) 0.3 % Immature Granulocyte # (Auto) 0.03 K/uL Sodium Level 137 mmol/L Potassium Level 3.7 mmol/L Chloride Level 103 mmol/L Carbon Dioxide Level 27 mmol/L Anion Gap 7.0 mmol/L Blood Urea Nitrogen 13 mg/dl Creatinine 0.56 mg/dl Est Creatinine Clear Calc Drug Dose 94.8 ml/min Estimated GFR () 110.3 Estimated GFR (Non- 95.1 BUN/Creatinine Ratio 23.4 Random Glucose 101 mg/dl Calcium Level 8.4 mg/dl Assessment & Plan Wound dehiscence w/ associated infection Patient seen and examined with Dr. Burgos. Abdomen soft, non-distended, TTP, erythema and drainage from dehiscence site. afebrile. WBC upper limit of normal w/ left shift. Wound cultured, I&D w/ packing performed - see procedure note. Patient will be d/c from ED with PO antibiotics per ED provider. Plan to follow-up with nursing staff and Dr. Pérez in the general surgery clinic. Patient instructed to contact office in the AM to schedule appointment. Patient invited to contact our office with any questions or concerns. Procedure Note Date of Service Jan 04, 2018. Procedure Note I&D Infected midline abdominal incision w/ packing This procedure was performed primarily by Dr. Burgos who was assisted by myself. Risks, benefits and alternatives to the procedure were discussed with patient - questions answered, verbal consent obtained. The area was prepped with Betadine. 1% buffered lidocaine was injected into the area in a field block fashion. The area was then opened up approximately 2 cm further with a #15 blade in a longitudinal fashion. Pressure was then applied to the wound to express any remaining fluid. The wound was then packed with a piece of 4x4 gauze soaked in sterile saline. The area was then dressed with 4x4s and tape. Patient tolerated the procedure well without any complications.
[2018-01-04] MEDS ORDERED: AMOXICILLIN/CLAV POTAS 600 MG/42.9MG/5 ML 75 ML PO ONE (23:30)
[2018-01-04] MEDS ORDERED: AGMUDL4005 PO (23:31)
[2018-01-04] MEDS ORDERED: AMOXICILLIN/CLAV POTAS 600 MG/42.9MG/5 ML 75 ML PO STA (23:35)
[2018-01-04 23:40] VITALS: BP 103/61; PULSE 82; O2SAT 97
--- NOTE | 2018-01-05 01:24 | EMERGENCY ROOM VISIT NOTE ---
History Report prepared by Lucia: Krys Garcia Under the Supervision of: Dr. Alex Dubois D.O. First contact with patient: 21:57 Chief Complaint: WOUND INFECTION Stated Complaint: BLOOD/PUSS COMING FROM BELLYBUTTON/POST OP 12/15 History of Present Illness The patient is a 67 year old female who presents to the Emergency Room with complaints of persistent drainage of blood and pus from her belly button beginning this evening. She notes she had 2 recent surgeries, an emergency appendectomy 9 weeks ago (Dr. Tomlinson), and a colon resectioning and 11 lymph node removal 3 weeks ago. The patient denies SOB, CP, or abdominal pain. She denies blood thinner use. She has no significant pain. No fevers. She denies any trauma. She notes that she did not have any drainage prior to this. Sitting up does make drainage slightly worse and especially when pushing around the site. Source of History: patient Onset: this evening Position: abdomen (bellybutton) Quality: other (drainage of blood and pus) Timing: other (persistent) Associated Symptoms: No chest pain, No SOB, No abdominal pain Review of Systems See HPI for pertinent positives & negatives. A total of 10 systems reviewed and were otherwise negative. Past Medical & Surgical Medical Problems: (1) Dyslipidemia (2) GERD (gastroesophageal reflux disease) (3) Hypertension Surgical Problems: (1) H/O dilation and curettage (2) H/O repair of left rotator cuff (3) History of appendectomy (4) Hx of cholecystectomy (5) S/P right hemicolectomy (6) S/P right knee arthroscopy Family History FH: breast cancer SISTER FH: colon cancer MOTHER FH: lung cancer FATHER Social History Smoking Status: Current Every Day Smoker Marital Status: Housing Status: lives with significant other Occupation Status: retired Current/Historical Medications Scheduled Amoxicillin/Clavulanate Potas (Augmentin 400MG/5ML), 10 ML PO BID Aspirin (Aspirin Low Dose), 81 MG PO DAILY Cholecalciferol (Vitamin D3), 1,000 UNITS PO DAILYBB Enoxaparin (Enoxaparin Sodium), 90 MG SQ Q12H Lisinopril (Lisinopril), 10 MG PO QAM Meloxicam (Mobic), 7.5 MG PO QAM Omeprazole (Prilosec), 20 MG PO DAILYBB Ranitidine HCl (Ranitidine 75), 1 TAB PO BID Simvastatin (Zocor), 40 MG PO QD@ 1999 Allergies Coded Allergies: Sulfa Drugs (Unverified Adverse Reaction, Unknown, NAUSEA AND VOMITING, 01/04/18) Uncoded Allergies: "ANTIBIOTICS" (Adverse Reaction, Unknown, THRUSH, 10/13/04) Physical Exam Vital Signs Date Time Temp Pulse Resp B/P (MAP) Pulse Ox O2 Delivery O2 Flow Rate FiO2 01/04/18 23:40 82 103/61 97 Room Air 01/04/18 21:54 37.1 80 18 120/71 96 Room Air Physical Exam GENERAL: Sitting up in bed, alert, well appearing for stated age, well nourished , no distress, non-toxic EYE EXAM: normal conjunctiva. OROPHARYNX: no exudate, no erythema, lips, buccal mucosa, and tongue normal and mucous membranes are moist NECK: supple, no nuchal rigidity, no adenopathy, non-tender LUNGS: Clear to auscultation. Normal chest wall mechanics HEART: no murmurs, S1 normal and S2 normal ABDOMEN: abdomen soft, non-tender, normo-active bowel sounds, no masses, no rebound or guarding. midline incision clean dry intact w/ exception of inferior aspect which is draining yellow serosanguineous material, mild surrounding erythema along intact incision and induration. SKIN: no rashes and no bruising UPPER EXTREMITIES: upper extremities are grossly normal. LOWER EXTREMITIES: No pitting edema. NEURO EXAM: Normal sensorium, cranial nerves II-XII grossly intact, normal speech, no gross weakness of arms, no gross weakness of legs. Medical Decision & Procedures Laboratory Results 01/04/18 22:25 Red Blood Count 3.92, Mean Corpuscular Volume 93.6, Mean Corpuscular Hemoglobin 31.4, Mean Corpuscular Hemoglobin Concent 33.5, Mean Platelet Volume 9.5, Neutrophils (%) (Auto) 68.5, Lymphocytes (%) (Auto) 21.6, Monocytes (%) (Auto) 8.4, Eosinophils (%) (Auto) 0.9, Basophils (%) (Auto) 0.3, Neutrophils # (Auto) 7.17, Lymphocytes # (Auto) 2.26, Monocytes # (Auto) 0.88, Eosinophils # (Auto) 0.09, Basophils # (Auto) 0.03 01/04/18 22:25 Test 01/04/18 22:25 White Blood Count 10.46 K/uL (4.8-10.8) Red Blood Count 3.92 M/uL (4.2-5.4) Hemoglobin 12.3 g/dL (12.0-16.0) Hematocrit 36.7 % (37-47) Mean Corpuscular Volume 93.6 fL (80-100) Mean Corpuscular Hemoglobin 31.4 pg (25-34) Mean Corpuscular Hemoglobin Concent 33.5 g/dl (32-36) Platelet Count 395 K/uL (130-400) Mean Platelet Volume 9.5 fL (7.4-10.4) Neutrophils (%) (Auto) 68.5 % Lymphocytes (%) (Auto) 21.6 % Monocytes (%) (Auto) 8.4 % Eosinophils (%) (Auto) 0.9 % Basophils (%) (Auto) 0.3 % Neutrophils # (Auto) 7.17 K/uL (1.4-6.5) Lymphocytes # (Auto) 2.26 K/uL (1.2-3.4) Monocytes # (Auto) 0.88 K/uL (0.11-0.59) Eosinophils # (Auto) 0.09 K/uL (0-0.5) Basophils # (Auto) 0.03 K/uL (0-0.2) RDW Standard Deviation 45.7 fL (36.4-46.3) RDW Coefficient of Variation 13.4 % (11.5-14.5) Immature Granulocyte % (Auto) 0.3 % Immature Granulocyte # (Auto) 0.03 K/uL (0.00-0.02) Anion Gap 7.0 mmol/L (3-11) Est Creatinine Clear Calc Drug Dose 94.8 ml/min Estimated GFR () 110.3 Estimated GFR (Non- 95.1 BUN/Creatinine Ratio 23.4 (10-20) Calcium Level 8.4 mg/dl (8.5-10.1) Laboratory results per my review. Medications Administered Medications (Trade) Dose Ordered Sig/Jayashree Route Start Time Stop Time Status Last Admin Dose Admin Amoxicillin/ Clavulanate Potassium (Augmentin Es 600 Mg/42.9mg 5 ml Susp) 800 mg NOW STAT PO 01/04/18 23:35 01/04/18 23:36 DC 01/04/18 23:58 800 MG ED Course ED COURSE: Vital signs were reviewed and showed no abnormalities. The patients medical record was reviewed The above diagnostic studies were performed and reviewed. ED treatments and interventions as stated above. 2207: The patient was evaluated in room C10. A complete history and physical examination was performed. 2234: I reviewed the patient's case with Dr. Burgos, [facility] surgery. He recommends Augmentin and follow up. 2335: Ordered Amoxicillin/Clavulanate Potassium 800 mg PO. 2345: Upon reevaluation, the patient is resting. I discussed my findings with the patient and she understands and agrees with the treatment plan. Based on the patients age, coexisting illnesses, exam and lab findings the decision to treat as an outpatient was made. The patient remained stable while under my care. The patient appeared well at the time of discharge. Medical Decision Differential diagnoses includes but is not limited to gastritis, peptic ulcer disease, GERD, gallbladder disease, pancreatitis, small bowel obstruction, acute coronary syndrome, pericarditis, ischemic bowel, irritable bowel disease, irritable bowel syndrome, appendicitis, diverticulitis, malignancy, hernia, urinary tract infection, torsion, perforation, trauma, infectious. Patient is a 67-year-old female who presents the ER for dehiscence of a surgical wound from procedure on 12/15. Patient on my exam his yellow discharge. No fevers. CBC along with BMP was unremarkable. Patient was given a dose of antibiotics after discussion and evaluation by general surgery. They recommended following up with Dr. Cool's office tomorrow. She was discharged on Augmentin oral solution as she cannot tolerate pills. Discussed with Pt concerning signs and symptoms to watch out for. Pt was instructed to follow up with their PCP and discussed with the patient their option to return to the ED at anytime for persistent or worsening symptoms. The appropriate anticipatory guidance and out-patient management, including indications for return to the emergency department, were explained at length to the patient and understood. Medication Reconcilliation Current Medication List: was personally reviewed by me Blood Pressure Screening Patient's blood pressure: Normal blood pressure Blood pressure disposition: Did not require urgent referral Consults Time Called: 2215 Consulting Physician: Dr. Burgos, [facility] surgery Returned Call: [phone]: I reviewed the patient's case with Dr. Burgos, [facility] surgery. He recommends Augmentin and follow up. Impression Primary Impression: Postoperative wound infection Additional Impression: Wound dehiscence Scribe Attestation The scribe's documentation has been prepared under my direction and personally reviewed by me in its entirety. I confirm that the note above accurately reflects all work, treatment, procedures, and medical decision making performed by me. Departure Information Dispostion Home / Self-Care Prescriptions Amoxicillin/Clavulanate Potas (AUGMENTIN 400MG/5ML) 400 Mg/5 Ml Susp 10 ML PO BID for 10 Days, #200 ML Prov: Alex Dubois, DO 01/04/18 Referrals Krys Navarro M.D. (PCP) Forms HOME CARE DOCUMENTATION FORM, IMPORTANT VISIT INFORMATION, WORK / SCHOOL INSTRUCTIONS Patient Instructions My [facility] Additional Instructions Please follow up with your primary care doctor with in the next 24 hours. Any worsening of your symptoms, please return to the ED immediately. This includes any fevers greater than 100.4, worsening pain, chest pain, shortness breath, persistent nausea, vomiting, unable to eat or drink, or any other concerning signs or symptoms from your standpoint. Please take antibiotics as prescribed. Please make sure that you follow-up with your surgeon's office first thing tomorrow morning. Problem Qualifiers Primary Impression: Postoperative wound infection Encounter type: initial encounter Qualified Codes: T81.4XXA - Infection following a procedure, initial encounter
--- NOTE | 2018-01-08 12:19 | Pharmacy Progress Note ---
ED Pharmacist Culture FollowUp Date of Service: Jan 08, 2018. Patient's surface wound cultures growing staphylococcus lugdunensis and corynebacterium species. Patient did have I&D performed at visit and started on agumentin at recommendation of general surgery. Patient was to follow up with Dr. Pérez's office. Discussed culture results with Dr. Segovia- Jasmin staph and is sensitive to oxacillin, augmentin may cover, vs switch to bactrim vs contaminate. Given I&D performed and the recommendation for Augmentin came from General surgery and patient following up with office, VORB from Dr. Segovia to keep current antibiotics but call General Surgery office and make them aware of culture results. Called General Surgery office and spoke with nurse who [facility] and said she would make Dr. Pérez aware. No further follow up at this time.
== END 2018-01-04 23:50 | disposition home or self-care (01) ==
LOC: C.EDB 21:33 → C.EDC 23:50
DX: T81.4XXA Infection following a procedure, initial encounter (principal); T81.30XA Disruption of wound, unspecified, initial encounter; Y83.6 Removal of other organ (partial) (total) as the cause of abnormal reaction of the patient, or of later complication, without mention of misadventure at the time of the procedure; E78.5 Hyperlipidemia, unspecified; K21.9 Gastro-esophageal reflux disease without esophagitis; I10 Essential (primary) hypertension; Z90.49 Acquired absence of other specified parts of digestive tract; F17.210 Nicotine dependence, cigarettes, uncomplicated; Z80.3 Family history of malignant neoplasm of breast; Z80.0 Family history of malignant neoplasm of digestive organs; Z80.1 Family history of malignant neoplasm of trachea, bronchus and lung; Z79.82 Long term (current) use of aspirin; Z79.899 Other long term (current) drug therapy; Z88.2 Allergy status to sulfonamides; Z88.1 Allergy status to other antibiotic agents

== ENCOUNTER 2023-11-02 07:22 | Observation (INO) ==
--- NOTE | 2023-10-05 14:28 | PAT Medication Instructions ---
Medication Instructions Date of Service October 05, 2023 Home Medications lisinopril 10 mg tablet 10 mg PO QAM omeprazole 20 mg capsule,delayed release 20 mg PO QAM mecobalamin (vitamin B12) 1 tab PO QAM meloxicam 7.5 mg tablet (Mobic) 7.5 mg PO QAM simvastatin 40 mg tablet 40 mg PO HS calcium carbonate 600 mg-vitamin D3 10 mcg (400 unit) chewable tablet (Calcium 600 with Vitamin D3) 1 tab PO QAM montelukast 10 mg tablet 10 mg PO QAM polyethylene glycol 3350 17 gram/dose oral powder (Miralax) 17 g PO DAILY amoxicillin 875 mg-potassium clavulanate 125 mg tablet 1 tab PO BID Continue as directed amoxicillin 875 mg-potassium clavulanate 125 mg tablet 1 tab PO BID ASK your surgeon for instructions meloxicam 7.5 mg tablet (Mobic) 7.5 mg PO QAM DO NOT take the morning of surgery lisinopril 10 mg tablet 10 mg PO QAM mecobalamin (vitamin B12) 1 tab PO QAM calcium carbonate 600 mg-vitamin D3 10 mcg (400 unit) chewable tablet (Calcium 600 with Vitamin D3) 1 tab PO QAM montelukast 10 mg tablet 10 mg PO QAM polyethylene glycol 3350 17 gram/dose oral powder (Miralax) 17 g PO DAILY Take morning of surgery With a small sip of water, OTHERWISE NOTHING TO EAT OR DRINK AFTER MIDNIGHT: omeprazole 20 mg capsule,delayed release 20 mg PO QAM Take evening before surgery simvastatin 40 mg tablet 40 mg PO HS Other Notes If you have any questions please call us at [phone] or [phone] or [phone] or [phone]
--- NOTE | 2023-10-06 13:13 | Anesthesiology Consultation ---
Date of Service October 06, 2023 Assessment & Plan (1) Encounter for pre-operative examination: - oral lesion on roof of mouth: prescribed antibiotic x 10 days (pt cannot recall which antibiotic) by dentist and returns later this week for re- evaluation. She was instructed to call the office if lesion does not resolve. Surgeon's office made aware. - Outpatient joint pathway: Per surgeon and patient, plan for outpatient joint program. Upon review of chart and per discussion with Dr. Cardoza-patient is an acceptable candidate for Same Day Joint Program from anesthesia perspective pending perioperative course. Pending patient is motivated, has good support and surgeon's office completes Same Day Joint Program preop requirements- patient may proceed with outpatient TSA. Chart Review Chart Review: Acceptable Risk for Surgery and Patient seen in Pre Admission Testing Teaching & Discussion Pre-Anesthesia Teaching/Discussion Notes: Instructed NPO after midnight before surgery, except medications with 15 cc of water. Medication instructions provided according to the PAT guidelines. History Surgery Operation Date: 11/02/23 09:00 Proposed Procedures p Right Reverse Total Shoulder Arthroplasty - Keyshawn Patel, Height/Weight Height: 5 ft 2 in Weight: 74.843 kg Allergies Allergy/AdvReac Type Severity Reaction Status Date / Time enoxaparin Allergy Mild skin red Verified 10/05/23 07:36 and hot at site Sulfa (Sulfonamide AdvReac Unknown NAUSEA AND Verified 10/05/23 07:36 Antibiotics) VOMITING "ANTIBIOTICS" AdvReac Unknown THRUSH Uncoded 10/05/23 07:36 Medications Home Medications Medication Instructions Recorded Confirmed Last Taken lisinopril 10 mg tablet 10 mg PO QAM 06/13/19 10/05/23 06/01/23 08:00 omeprazole 20 mg capsule,delayed 20 mg PO QAM 06/13/19 10/05/23 06/02/23 04:00 release mecobalamin (vitamin B12) 1 tab PO QAM 02/12/21 10/05/23 05/26/23 08:00 meloxicam 7.5 mg tablet (Mobic) 7.5 mg PO QAM 02/12/21 10/05/23 06/01/23 08:00 simvastatin 40 mg tablet 40 mg PO HS 09/12/21 10/05/23 06/01/23 18:00 calcium carbonate 600 mg-vitamin 1 tab PO QAM 05/19/23 10/05/23 05/26/23 08:00 D3 10 mcg (400 unit) chewable tablet (Calcium 600 with Vitamin D3) montelukast 10 mg tablet 10 mg PO QAM 05/19/23 10/05/23 06/02/23 04:00 polyethylene glycol 3350 17 17 g PO DAILY 05/19/23 10/05/23 06/01/23 08:00 gram/dose oral powder (Miralax) amoxicillin 875 mg-potassium 1 tab PO BID 10/05/23 10/05/23 Unknown clavulanate 125 mg tablet Past Medical History Medical History 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 Exercise / Class Metabolic Activity II 4-5 Yardwork/Stairs/Walk up hill (denies chest discomfort or shortness of breath with one flight of stairs) Past Family History Family History Brother ALS (amyotrophic lateral sclerosis) Mother Diabetes Colorectal cancer Father Lung cancer Family/Other ALS (amyotrophic lateral sclerosis) sibling Sister Breast cancer late 50s Other Schizophrenia Denies family history of Ovarian cancer Uterine cancer Past Surgical History Surgical History H/O repair of rotator cuff left History of appendectomy History of arthroscopy of knee right History of cholecystectomy History of colon resection see laparotomy and lymph node removed History of colonoscopy History of conization of cervix [facility] 1979 History of dilatation and curettage History of laparotomy lysis of dense abdominal adhesions, right radical colectomy with side to side ileocolonic anastomosis 12/15/2017 Dr. Pérez History of left cataract surgery Hx of hernia repair Open Repair Ventral Hernia with Mesh Hx of right cataract extraction Past Anesthesia History No Hx of Anesthesia Complications and No Family Hx of Anesthesia Complications History of PONV No Hx of Motion Sickness and History of PONV (after lap fidel) Social History Smoking Status: Current every day smoker tobacco type: cigarettes Smoking cigarettes per day: 1 ppd > advised npo Do You Dip or Chew Tobacco: No Hx Alcohol Use: No Hx Substance Use: No substance use type: does not use Review of Systems Patient denies chest pain, shortness of breath, dyspnea on exertion, snoring, witnessed apneas, fever, chills, cough, wheezing, or palpitations. Physical Exam Vital Signs Vitals BP 126/74 P 68 TEMP 98.3 SP02 94% on RA RESP 18 Physical Patient resting comfortably in chair in no acute distress, alert and oriented, responding appropriately throughout visit Full cervical extension range of motion without pain TMD 3.5 finger breadths Mallampati Score 3 Dentition: intact, denies chipped or loose teeth, caps/crowns, implants or bridges; small erythematous lesion roof of mouth without drainage or evident opening Lungs: normal respiratory effort. Good air movement, clear throughout to auscultation, no adventitious breath sounds Cardiac: regular rate and rhythm, no murmurs noted Carotid arteries: negative bruit bilat Lab Results Anesthesia Preop Results Results Anesthesia Widget: WBC 8.01 K/ul (4.8-10.8) 10/06/23 Hgb 13.8 g/dl (12.0-16.0) 10/06/23 Hct 40.3 % (37.0-47.0) 10/06/23 Plt 340 K/uL (130-400) 10/06/23 Na 135 mmol/L (136-145) L 10/06/23 K 4.2 mmol/L (3.5-5.1) 10/06/23 Cl 102 mmol/L (98-107) 10/06/23 CO2 28 mmol/L (21-32) 10/06/23 BUN 18 mg/dl (6-23) 10/06/23 Creat 0.86 mg/dl (0.6-1.2) 10/06/23 Glucose Level 98 mg/dl (70-99(Fasting)) 10/06/23 PT 10.6 Seconds (9.0-12.0) 10/06/23 PTT 26 Seconds (21-31) 10/06/23 INR 1.0 (0.9-1.1) 10/06/23 Blood Type A Positive 10/06/23 Antibody Screen NEGATIVE 10/06/23 Testing Electrocardiogram Date: 04/28/23 NSR, rate 70 bpm Low voltage QRS, consider pulmonary disease, pericardial effusion, or normal variant Other Testing Chest CT 03/13/23 Negative, benign appearance or behavior. Negative. No new/unknown potentially significant incidental findings requiring additional evaluation.
[~2023-11-02 07:22] MED LIST changes: -AMOXICILLIN/CLAV POTAS 600 MG/42.9MG/5 ML 75 ML PO SCH; +BUPIVACAINE 0.5 % 5 MG/1 ML PF 10ML VIAL ONE; -CHOL1000 PO; -LISI-461 PO; -LVNIS100 SQ; -MELO7.5T5 PO; -OXYC-57 PO; -PRLSR20 PO; -RANI1TAB75 PO; -SIMV40TA2 PO
--- OUTSIDE RECORDS SUMMARY | 2023-11-02 07:30 | External Medical Summary ---
Author Name Unknown Address Unknown Organization [id number]:[facility] [place] [address] [facility] [address] Laboratory Report Ordering Provider Test Date Status LISA PATEL 08/04/2023 08:09:50 Final Observation Date Value Abnormality Reference (Units ) Status HbA1C 08/04/2023 08:09:50 5.9 Above high normal 4. 0-5.6 (%) Final The use of HbA1c to monitor glycemic status is based on normal hemoglobin and HbA composition. This test should not be used in patients with abnormal hemoglobin that affects the half life of the red blood cell or the in vivo glycation rates. Glucose, estimated average 08/04/2023 08:09:50 123 <126 (mg/dL) Final Performing Location [facility] [place] [address] [place] [address]
--- OUTSIDE RECORDS SUMMARY | 2023-11-02 07:30 | External Medical Summary ---
Author Name Unknown Address Unknown Organization [id number][place] [place] [address] [place] [address] Laboratory Report Ordering Provider Test Date Status LISA PATEL 08/04/2023 08:09:50 Final Observation Date Value Abnormality Reference (Units ) Status Parathyrin.intact [Mass/volume] in Serum or Plasma 08/04/2023 08:09:50 33 15-65 (pg/mL) Final Performing Location [facility] [place] [address] [place] [address]
--- OUTSIDE RECORDS SUMMARY | 2023-11-02 07:30 | External Medical Summary | Summary of Care ---
Author Name Unknown Organization [facility] Address [address] [facility] [address] Phone [phone] Care Team Providers Care Finance Director Name Role Phone Monico Modi MD Primary Care Provider +1- [phone] Encounter Details Date Type Department Care Team (Late st Contact Info) Description 08/25/2023 Orders Only PATIENT PORTAL DO NOT DELETE THIS DEPT USED BY [place] [id number] Allergies Active Allergy Reactions Criticality Noted Date Comments Enoxaparin Sodium Flushing,Rash 02/09/2018 Sulfa Antibiotics 03/19/1999 nausea documented as of this encounter (statuses as of 08/25/2023) Medications Medication Sig Dispensed Refills Start Date End Date Status METAMUCIL 28.3 % PO POWD Uses once daily 0 Active B-12 1000 MCG Oral Tablet Take 1 by mouth per day 30 Tab 5 08/07/2020 Active Calcium 1000 + D 1000-800 MG-UNIT Oral Tablet (Calcium Carb-Cholecalcifer ol) Take 1 Tab by mouth daily. 0 Active Nystatin 982459 UNIT/ML Mouth/Throat SuspensionIndicati ons:Abnormal CT lung screening Swish and swallow 5 mL in the morning AND 5 mL at noon AND 5 mL in the evening AND 5 mL before bedtime. For thrush.. 600 mL 0 02/13/2022 Active Additional Information Patient not taking.Reported on 08/18/2023 SilvaSorb External Gel Apply topically to affected area 2 times a day . Apply to buttocks 44.4 mL 3 02/27/2022 Active Restasis 0.05 % Ophthalmic Emulsion 0 09/13/2022 Active Montelukast Sodium 10 MG Oral Tablet (Singulair) Take 1 Tablet by mouth in the morning. 90 Tablet 3 11/06/2022 Active Additional Information Patient taking differently:10 mg Oral Daily(AM),Indications: as needed, Reported on 11/10/2022 Probiotic 1-250 BILLION-MG Oral Capsule Take by mouth 2 times a day. 0 Active Meloxicam 7.5 MG Oral Tablet (Mobic)Indications :Pain TAKE 1 TABLET BY MOUTH DAILY FOR PAIN. 90 Tablet 2 12/09/2022 Active Polyethylene Glycol 3350 17 GM/SCOOP Oral Powder (MiraLax) Take 17 g by mouth in the morning. 0 Active Lisinopril 10 MG Oral Tablet (Prinivil)Indicati ons:HTN, goal below 130/80 TAKE 1 TABLET BY MOUTH EVERY DAY 90 Tablet 2 08/10/2023 Active LORazepam 0.5 MG Oral Tablet (Ativan)Indication s:Anxiety state One pill by mouth 3 times a day as needed for anxiety 30 Tablet 0 08/18/2023 Active Omeprazole 20 MG Oral Capsule Delayed Release (PriLOSEC) TAKE 1 CAPSULE BY MOUTH 1 HOUR BEFORE THE FIRST MEAL OF THE DAY 90 Capsule 3 08/18/2023 Active Simvastatin 40 MG Oral Tablet (Zocor)Indications :Dyslipidemia, goal LDL below 100 Take 1 tab by mouth daily 90 Tablet 3 08/18/2023 Active Hospital, Clinic, or Other Facility Administered Medication Ordered Dose Route Frequency Start Date End Date Status Hylan (Synvisc) inj 16 mgIndications:Primary osteoarthritis of right knee 16 mg IX QWEEK 09/30/2022 Active documented as of this encounter (statuses as of 08/25/2023) Active Problems Problem Noted Date Diagnosed Date Class 1 obesity due to exces s calories without serious comorbidity with body mass index (BMI) of 32.0 to 32.9 in adult 11/06/2022 Chronic kidney disease, stage 3a 08/12/2021 Overview: Per CKD protocol Pulmonary nodule 02/07/2021 B12 deficiency 08/07/2020 HTN, goal below 140/90 02/09/2020 Prediabetes 02/07/2020 Overview: Per Prediabetes protocol 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 Metabolic syndrome 09/01/2011 Dyslipidemia, goal LDL below 100 08/21/2010 Insomnia 11/06/2003 Overview: ICD-10 update of inactive term Tobacco use disorder 04/04/2002 FAMILY HX-GI MALIGNANCY 07/30/1999 documented as of this encounter (statuses as of 08/25/2023) Resolved Problems Problem Noted Date Diagnosed Date Resolved Date Appendix carcinoma 12/07/2018 0 HTN, goal below 130/80 09/28/201802/08 Personal history of malignan t neoplasm of other site 09/20/2018 10/06/2019 Overview: Appendix Acute sinusitis 06/27/2012 01/24/2013 Obesity, Class II, BMI 35-39 .9, isolated (see actual BMI) 11/12/2009 11/06/2022 Overview: Per Obesity Protocol, #19 Acute sinusitis 06/26/2009 09/10/2009 ADVANCE DIRECTIVE INFORMATION 04/21/2006 02/09/2020 Overview: Information given to patient Impaired fasting glucose 11/07/200403/2020 Dyslipidemia, goal to be determined 12/29/2001 08/21/2010 Constipation 07/30/1999 03/22/2009 Overview: ICD-10 update of inactive term STRESS REACT, EMOTIONAL 03/02 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 documented as of this encounter (statuses as of 08/25/2023) Immunizations Name Administration Dates Next Due COVID-19 mRNA, LNP-s, No Pre serve, 2-Dose Series (MiSiedo) 08/29/2020,08/08/2020 COVID-19, mRNA, LNP-s, PF, B ooster, 100mcg/0.5mg (Moderna) 10/19/2021,04/03/2021 Covid-19, Mrna, Lnp-s, Pf, B ivalent, 50 Mcg, IM, 12 yrs and above (Moderna) 02/26/2022 Pneumococcal Conjugate Vacc, 13 Valent (Prevnar) 03/23/2015 Pneumococcal Polysaccharide PPV23 (Pneumovax) 04/17/2014 Season Influenza, Quad, PF, Adjuvanted, 65+ Yrs, IM (FLUAD) 02/04/2023,02/03/2020 Seasonal Influenza, PF, 6 M & above, IM , (FluLaval or Fluzone) 02/13/2018,02/23/2017 Seasonal Influenza, Quadriva lent, No Preserve, IM 03/05/2015 Seasonal Influenza, Split, I IV3, With Preserve, Inj 03/05/2015,03/09/2013,02/27/2012,02/15,02/28/2010,03/06/2009,03/21/2008 ,04/02/2006 Seasonal Influenza, Trivalen t, Adjuvanted, 65+ yrs 02/09/2022,02/12/2019 Seasonal Influenza, Trivalen t, High Dose, No Preserve, IM 03/11/2016 TDAP (age 10 and older)(Boostrix) 03/01/2020 TDAP (age 11 and older)(Adacel) 02/28/2010 Varicella Zoster Vaccine (Adult) 05/13/2015 Zoster Vaccine Recombinant (Shingrix) 08/12/2019 ,05/18/2019 documented as of this encounter Social History Tobacco Use Types Packs/Day Years Used Date Smoking Tobacco: Every Day Cigarettes 1 30 Passive Smoke Exposure: Never Smokeless Tobacco: Never Alcohol Use Standard Drinks/Week Comments No 0 (1 standard drink = 0.6 oz pur e alcohol) very rare PHQ-2 Answer Date Recorded PHQ Adult Total Score 0 08/14/2022 Hunger Vital Sign Answer Date Recorded Within the past 12 months, y ou worried that your food would run out before you got the money to buy more. Never true 08/15/19 23 Within the past 12 months, t he food you bought just didn't last and you didn't have money to get more. Never true 08/14/2022 Sex and Gender Information Value Date Recorded Sex Assigned at Not on file Gender Identity Not on file Sexual Orientation Not on file Job Start Date Occupation Industry Not on file Not on file Not on file documented as of this encounter Plan of Treatment Upcoming Encounters Date Type Department Care Team (Late st Contact Info) Description 11/26/2023 8:00 AM EDT Office Visit Dermatology, [place] [address] [facility], [place] [address] Malgorzata Springer PA-C [address] [place] [address] [place] [address] 12/01/2023 11:30 AM EDT Laboratory Laboratory, [place] [address] [facility], [place] [phone] [place] [address] [facility] [place] [address] 12/10/2023 12:00 PM EDT Office Visit Hematology/Oncology [facility] [place] [address] [facility] [phone] Toya Turk [facility] [address] [facility] [place] [address] 03/02/2024 7:40 AM EDT Laboratory [facility], [place] [address] [facility] [address] [facility] [address] [place] [address] 03/07/2024 9:00 AM EDT [facility] [address] [facility] [phone] Monico Modi MD [address] [facility] [phone] Scheduled Procedures Name Priority Associated Diagnoses Date/Ti me COLONOSCOPY FLEXIBLE PROXIMA L DIAGNOSTIC Recall History of colonic polyps Health Maintenance Due Date Last Done Comments Depression Screening 08/15/2023 08/14/2022 GFR 02/04/2024 08/04/2023, 04/02, 02/04/2023, Additional history exists Albumin/Creatinine Ratio 08/03/2024 08/04/2023, 0307/2022 CKD HGB USE SMARTSET 14439 08/03/202408/03, 04/28/2023, 07/31/2022, Additional history exists CKD PHOS USE SMARTSET 13772 08/03/2024 08/04/2023, 0 07/31/2022 HbA1c 08/03/2024 08/04/2023, 0910/2022, 07/31/2022, Additional history exists COLONOSCOPY-EVERY 3 YRS AGES 18-100 11/13/2025 11/13/2022, 11/13/2022, 11/09/2017, Additional history exists DXA Scan 10/03/2027 10/02/2020, 08/30, 09/14/2013 DTaP,Tdap,and Td Vaccines (3 - Td or Tdap) 03/01/2030 03/01/2020, 02/28/2010, 02/06/2005, Additional history exists Pneumococcal Vaccine: 65+ Years Completed 03/23/2015, 04/17/2014 Zoster Vaccines Completed 08/12/2019, 05/01, 05/13/2015 COLONOSCOPY-EVERY 5 YRS AGES 18-100 Discontinued 11/13/2022, 11/13/2022, 11/09/2017, Additional history exists Influenza Vaccine (FLU shot) Completed 02/04/2023, 02/09/2022, 02/03/2020, Additional history exists COVID-19 Vaccine Completed 03/09/2023, , 10/19/2021, Additional history exists GARDASIL-HPV IMMUNIZATION SERIES Aged Out No longer eligible based on patient's age to complete this topic Hepatitis B Aged Out No longer eligi ble based on patient's age to complete this topic MENINGOCOCCAL (MENACTRA/MENVEO) Aged Out No longer eligible based on patient's age to complete this topic documented as of this encounter Medical Devices Not on filedocumented as of this encounter Care Teams Finance Director Relationship Specialty Start Date End Date Monico Modi MD [address] [place] [address] PCP - General Family Medicine 09/23/19 documented as of this encounter
--- OUTSIDE RECORDS SUMMARY | 2023-11-02 07:30 | External Medical Summary | Summary of Care ---
Author Name Unknown Organization [facility] Address [address] [place] [address] Phone [phone] Care Team Providers Care Slot Shift Manager Name Role Phone Monico Gonzalez MD Primary Care Provider [phone]- [phone] Reason for Visit * Reason Comments eRx-Medication Refill Encounter Details Date Type Department Care Team (Late st Contact Info) Description 08/09/2023 Refill Family Practice [facility] [address] [facility] [place] [address] Monico Gonzalez MD [address] [place], [place] [phone] HTN, goal below 130/80 Allergies Active Allergy Reactions Criticality Noted Date Comments Enoxaparin Sodium Flushing,Rash 02/09/2018 Sulfa Antibiotics 03/19/1999 nausea documented as of this encounter (statuses as of 08/10/2023) Medications Medication Sig Dispensed Refills Start Date End Date Status METAMUCIL 28.3 % PO POWD Uses once daily 0 Active B-12 1000 MCG Oral Tablet Take 1 by mouth per day 30 Tab 5 08/07/2020 Active Calcium 1000 + D 1000-800 MG-UNIT Oral Tablet (Calcium Carb-Cholecalcif omega) Take 1 Tab by mouth daily. 0 Active Nystatin 248380 UNIT/ML Mouth/Throat SuspensionIndica tions:Abnormal CT lung screening Swish and swallow 5 mL in the morning AND 5 mL at noon AND 5 mL in the evening AND 5 mL before bedtime. For thrush.. 600 mL 0 02/13/2022 Active SilvaSorb External Gel Apply topically to affected [...] 0 Active Meloxicam 7.5 MG Oral Tablet (Mobic)Indicatio ns:Pain TAKE 1 TABLET BY MOUTH DAILY FOR PAIN. 90 Tablet 2 12/09/2022 Active Simvastatin 40 MG Oral Tablet (Zocor)Indicatio ns:Dyslipidemia, goal LDL below 100 TAKE 1 TABLET BY MOUTH EVERYDAY AT BEDTIME 90 Tablet 2 12/22/2022 Active Omeprazole 20 MG Oral Capsule Delayed Release (PriLOSEC)Indica tions:GERD (gastroesophagea l reflux disease) TAKE 1 CAPSULE BY MOUTH 1 HOUR BEFORE THE FIRST MEAL OF THE DAY 90 Capsule 2 12/22/2022 Active Polyethylene Glycol 3350 17 GM/SCOOP Oral Powder (MiraLax) Take 17 g by mouth in the morning. 0 Active Lisinopril 10 MG Oral Tablet (Prinivil)Indica tions:HTN, goal below 130/80 TAKE 1 TABLET BY MOUTH EVERY DAY 90 Tablet 2 08/10/2023 Active Lisinopril 10 MG Oral Tablet (Prinivil)Indica tions:HTN, goal below 130/80 TAKE 1 TABLET BY MOUTH EVERY DAY 90 Tablet 2 11/14/2022 Discontinued Hospital, Clinic, or Other Facility Administered Medication Ordered Dose Route Frequency Start Date End Date Status Hylan (Synvisc) inj 16 mgIndications:Primary osteoarthritis of right knee 16 mg IX QWEEK 09/30/2022 Active documented as of this encounter (statuses as of 08/10/2023) Active Problems Problem Noted Date Diagnosed Date [...] as of this encounter (statuses as of 08/10/2023) Resolved Problems Problem Noted Date Diagnosed Date [...] as of this encounter (statuses as of 08/10/2023) Immunizations Name Administration Dates Next Due COVID-19 mRNA, LNP-s, No Pre serve, 2-Dose Series (giftee) 08/29/2020,08/08/2020 COVID-19, mRNA, LNP-s, PF, B ooster, [...] on file documented as of this encounter Miscellaneous Notes * Telephone Encounter - Ana Go [facility] - 08/10/2023 3:04 PM EDTSigned Prescriptions: Disp Refills Lisinopril 10 MG Oral Tablet (Prinivil) 90 Tab*2 Sig: TAKE 1 TABLET BY MOUTH EVERY DAYAuthorizing Provider: MONICO GONZALEZ User: ANA GO------ documented in this encounter Plan of Treatment Upcoming Encounters Date Type Department Care Team (Late st Contact Info) Description 08/18/2023 9:20 AM EDT Office Visit [facility] [place] [address] [facility] [phone] Monico Gonzalez MD [address] [facility] [address] 11/26/2023 8:00 AM EDT Office Visit [facility]ermatology, [place] [address] [facility] [address] Malgorzata Springer PA-C [address] [place] [address] [place] [address] 12/01/2023 11:30 AM EDT Laboratory Laboratory, [place] [address] [facility] [phone] [facility] [address] [facility] [phone] 12/10/2023 12:00 PM EDT Office Visit Hematology/Oncology [facility] [place] [address] [facility] [place] [address] Toya Turk CRNP [address] [facility] [place] [phone] Scheduled Procedures Name Priority Associated Diagnoses Date/Ti me COLONOSCOPY FLEXIBLE PROXIMA L DIAGNOSTIC Recall History of colonic polyps Health Maintenance Due Date Last Done Comments Depression Screening 08/15/2023 08/14/2022 GFR 02/04/2024 08/04/2023, 04/02, 02/04/2023, Additional history exists Albumin/Creatinine Ratio 08/03/2024 08/04/2023, 07/2022 CKD HGB USE SMARTSET 80359 08/03/202408/03, 04/28/2023, 07/31/2022, Additional history exists CKD PHOS USE SMARTSET 20726 08/03/2024 08/04/2023, 0 07/31/2022 HbA1c 08/03/2024 08/04/2023, 10/2022, 07/31/2022, Additional history exists COLONOSCOPY-EVERY 3 YRS [...] Not on filedocumented as of this encounter Visit Diagnoses Diagnosis HTN, goal below 130/80 Unspecified essential hypertension documented in this encounter Care Teams Slot Shift Manager Relationship Specialty Start Date End Date Monico Gonzalez MD [address] [place] [facility] [place] [address] PCP - General Family Medicine 09/23/19 documented as of this encounter
--- OUTSIDE RECORDS SUMMARY | 2023-11-02 07:30 | External Medical Summary | Summary of Care ---
Author Name Unknown Organization [facility] Address [address] [place] [address] Phone [phone] Care Team Providers Care Practice Administrator Name Role Phone Monico Gonzalez MD Primary Care Provider +1- [phone] Reason for Visit * Reason Comments eRx-Medication Refill Encounter Details Date Type Department Care Team (Late st Contact Info) Description 09/04/2023 Refill [facility] [address] [place] [address] Monico Gonzalez MD [address] [place] [address] Pain Allergies Active Allergy Reactions Criticality Noted Date Comments Enoxaparin Sodium Flushing,Rash 02/09/2018 Sulfa Antibiotics 03/19/1999 nausea documented as of this encounter (statuses as of 09/04/2023) Medications Medication Sig Dispensed Refills Start Date End Date Status METAMUCIL 28.3 % PO POWD Uses once daily 0 Active B-12 1000 MCG Oral Tablet Take 1 by mouth per day 30 Tab 5 08/07/2020 Active Calcium 1000 + D 1000-800 MG-UNIT Oral Tablet (Calcium Carb-Cholecalcif omega) Take 1 Tab by mouth daily. 0 Active Nystatin 457139 UNIT/ML Mouth/Throat SuspensionIndica tions:Abnormal CT lung screening [...] mouth 2 times a day. 0 Active Polyethylene Glycol 3350 17 GM/SCOOP Oral Powder (MiraLax) Take 17 g by mouth in the morning. 0 Active Lisinopril 10 MG Oral Tablet (Prinivil)Indica tions:HTN, goal below 130/80 TAKE 1 TABLET BY MOUTH EVERY DAY 90 Tablet 2 08/10/2023 Active LORazepam 0.5 MG Oral Tablet (Ativan)Indicati ons:Anxiety state One pill by mouth 3 times a day as needed for anxiety 30 Tablet 0 08/18/2023 Active Omeprazole 20 MG Oral Capsule Delayed Release (PriLOSEC) TAKE 1 CAPSULE BY MOUTH 1 HOUR BEFORE THE FIRST MEAL OF THE DAY 90 Capsule 3 08/18/2023 Active Simvastatin 40 MG Oral Tablet (Zocor)Indicatio ns:Dyslipidemia, goal LDL below 100 Take 1 tab by mouth daily 90 Tablet 3 08/18/2023 Active Meloxicam 7.5 MG Oral Tablet (Mobic)Indicatio ns:Pain TAKE 1 TABLET BY MOUTH DAILY FOR PAIN. 90 Tablet 2 09/04/2023 Active Meloxicam 7.5 MG Oral Tablet (Mobic)Indicatio ns:Pain TAKE 1 TABLET BY MOUTH DAILY FOR PAIN. 90 Tablet 2 12/09/2022 4 Discontinued Hospital, Clinic, or Other Facility Administered Medication Ordered Dose Route Frequency Start Date End Date Status Hylan (Synvisc) inj 16 mgIndications:Primary osteoarthritis of right knee 16 mg IX QWEEK 09/30/2022 Active documented as of this encounter (statuses as of 09/04/2023) Active Problems Problem Noted Date Diagnosed Date [...] as of this encounter (statuses as of 09/04/2023) Resolved Problems Problem Noted Date Diagnosed Date [...] as of this encounter (statuses as of 09/04/2023) Immunizations Name Administration Dates Next Due COVID-19 mRNA, LNP-s, No Pre serve, 2-Dose Series (Pfizer) 08/29/2020,08/08/2020 COVID-19, mRNA, LNP-s, PF, B ooster, [...] encounter Miscellaneous Notes * Telephone Encounter - Nevaeh Eubanks RPh - 09/04/2023 2:41 PM EDTSigned Prescriptions: Disp Refills Meloxicam 7.5 MG Oral Tablet (Mobic) 90 Tab*2 Sig: TAKE 1 TABLETBY MOUTH DAILY FOR PAIN.Authorizing Provider: MONICO GONZALEZ User: NEVAEH EUBANKS-- documented in this encounter Plan of Treatment Upcoming Encounters Date Type Department Care Team (Late st Contact Info) Description 11/26/2023 8:00 AM EDT Office Visit Dermatology, [place] [address] [facility] [place] [address] Malgorzata Springer PA-C [address] [place] [address] [place] [address] 12/01/2023 11:30 AM EDT Laboratory Laboratory, [place] [address] [facility] [phone] [facility] [address] [facility] [address] 12/10/2023 12:00 PM EDT Office Visit Hematology/Oncology [facility] [place] [address] [place] [address] [address] Toya Turk, STAFFING MANAGER [address] [place] [address] 03/02/2024 7:40 AM EDT Laboratory Laboratory, [place] [address] [facility], [place] [phone] [facility] [address] [facility] [phone] 03/07/2024 9:00 AM EDT Office Visit [facility] [place] [address] [facility] [place] [address] Monico Gonzalez MD [address] [facility] [address] Scheduled Procedures Name Priority Associated Diagnoses Date/Ti me COLONOSCOPY FLEXIBLE PROXIMA L DIAGNOSTIC Recall History of colonic polyps Health Maintenance Due Date Last Done Comments Depression Screening 08/15/2023 08/14/2022 GFR 02/04/2024 08/04/2023, 04/02, 02/04/2023, Additional history exists Albumin/Creatinine Ratio 08/03/2024 08/04/2023, 0307/2022 CKD HGB USE SMARTSET 95776 08/03/202408/03, 04/28/2023, 07/31/2022, Additional history exists CKD PHOS USE SMARTSET 86211 08/03/2024 08/04/2023, 0 07/31/2022 HbA1c 08/03/2024 08/04/2023, 090 10/2022, 07/31/2022, Additional history exists COLONOSCOPY-EVERY 3 [...] as of this encounter Visit Diagnoses Diagnosis Pain Generalized pain documented in this encounter Care Teams Practice Administrator Relationship Specialty Start Date End Date Monico Gonzalez MD [address] [place] [address] PCP - General Family Medicine 09/23/19 documented as of this encounter
--- OUTSIDE RECORDS SUMMARY | 2023-11-02 07:30 | External Medical Summary ---
Author Name Unknown Address Unknown Organization K01:[facility] [place] [facility] [address] [facility] [address] Laboratory Report Ordering Provider Test Date Status JAYASHREE PATELKENDY 08/04/2023 08:09:50 Final Observation Date Value Abnormality Reference (Units ) Status WBC, Total 08/04/2023 08:09:50 10.71 4.00-10.80 (K/uL) Final RBC 08/04/2023 08:09:50 4.50 3.85-5.15 (M/uL) Final Hemoglobin 08/04/2023 08:09:50 14.5 12.0-15.3 (g/dL) Final HCT 08/04/2023 08:09:50 43.2 36.0-45.2 (%) Final MCV 08/04/2023 08:09:50 96.0 81.5-97.5 (fL) Final MCH 08/04/2023 08:09:50 32.2 27.0-34.0 (pg) Final MCHC 08/04/2023 08:09:50 33.6 32.0-36.0 (g/dL) Final RDW 08/04/2023 08:09:50 12.6 11.5-15.5 (%) Final Platelets 08/04/2023 08:09:50 341 140-400 (K/uL) Final MPV 08/04/2023 08:09:50 10.6 6.6-11.1 (fL) Final Nucleated erythrocytes/100 leukocytes [Ratio] in Blood by Automated count 08/04/2023 08:09:50 0 <=0 (/100 WBCs) Final Performing Location [facility] [place] [address] [place] [address]
--- OUTSIDE RECORDS SUMMARY | 2023-11-02 07:30 | External Medical Summary | Summary of Care ---
Author Name Unknown Organization [facility] Address [address] [place] [address] Phone [phone] Care Team Providers Care [facility] Worker Name Role Phone Monico Modi MD Primary Care Provider [phone] Reason for Visit * Reason Comments pre-op exam Pt here for pre op e xam for shoulder surgery Pt went to dentist to get a fitting for a top plate on September 24. Thursday the and the pt discovered a lump on the top of the month. The 30 of september pt started on an antibiotics.Dentist thinks pt may have shingles in her mouth. Encounter Details Date Type Department Care Team (Latest Contact Info) Description 10/21/2023 11:20 AM EDT [facility] [address] [facility] [place] [address] September, Eric Magallanes MD [address] [place] [address] Primary osteoarthritis of right shoulder*; HTN, goal below 140/90; Dyslipidemia, goal LDL below 100; Prediabetes; Chronic kidney disease, stage 3a (HCC) Allergies Active Allergy Reactions Criticality Noted Date Comments Enoxaparin Sodium Flushing,Rash 02/09/2018 Sulfa Antibiotics 03/19/1999 nausea documented as of this encounter (statuses as of 10/21/2023) Medications Medication Sig Dispensed Refills Start Date End Date Status B-12 1000 MCG Oral Tablet Take 1 by mouth per day 30 Tab 5 08/07/2020 Active Calcium 1000 + D 1000-800 MG-UNIT Oral Tablet (Calcium Carb-Cholecalcife rol) Take 1 Tab by mouth daily. Active Nystatin 315070 UNIT/ML Mouth/Throat SuspensionIndicat ions:Abnormal CT lung screening Swish and swallow 5 mL in the morning AND 5 mL at noon AND 5 mL in the evening AND 5 mL before bedtime. For thrush.. 600 mL 02/13/2022 Active SilvaSorb External Gel Apply topically to affected area 2 times a day . Apply to buttocks 44.4 mL 3 02/27/2022 Active Restasis 0.05 % Ophthalmic Emulsion 09/13/2022 Active Montelukast Sodium 10 MG Oral Tablet (Singulair) Take 1 Tablet by mouth in the morning. 90 Tablet 3 11/06/2022 Active Additional Information Patient not taking.Reported on 10/21/2023 Probiotic 1-250 BILLION-MG Oral Capsule Take by mouth 2 times a day. Active Polyethylene Glycol 3350 17 GM/SCOOP Oral Powder (MiraLax) Take 17 g by mouth in the morning. Active Lisinopril 10 MG Oral Tablet (Prinivil)Indicat ions:HTN, goal below 130/80 TAKE 1 TABLET BY MOUTH EVERY DAY 90 Tablet 2 08/10/2023 Active LORazepam 0.5 MG Oral Tablet (Ativan)Indicatio ns:Anxiety state One pill by mouth 3 times a day as needed for anxiety 30 Tablet 08/18/2023 Active Omeprazole 20 MG Oral Capsule Delayed Release (PriLOSEC) TAKE 1 CAPSULE BY MOUTH 1 HOUR BEFORE THE FIRST MEAL OF THE DAY 90 Capsule 3 08/18/2023 Active Simvastatin 40 MG Oral Tablet (Zocor)Indication s:Dyslipidemia, goal LDL below 100 Take 1 tab by mouth daily 90 Tablet 3 08/18/2023 Active Meloxicam 7.5 MG Oral Tablet (Mobic)Indication s:Pain TAKE 1 TABLET BY MOUTH DAILY FOR PAIN. 90 Tablet 2 09/04/2023 Active Amoxicillin-Pot Clavulanate 875-125 MG Oral Tablet (Augmentin) Take 1 Tablet by mouth. 10/01/2023 Active METAMUCIL 28.3 % PO POWD Uses once daily 4 Discontinue d(Patient preference/ discontinua tion) Hospital, Clinic, or Other Facility Administered Medication Ordered Dose Route Frequency Start Date End Date Status Hylan (Synvisc) inj 16 mgIndications:Primary osteoarthritis of right knee 16 mg IX QWEEK 09/30/2022 Active documented as of this encounter (statuses as of 10/21/2023) Active Problems Problem Noted Date Diagnosed Date [...] as of this encounter (statuses as of 10/21/2023) Resolved Problems Problem Noted Date Diagnosed Date [...] as of this encounter (statuses as of 10/21/2023) Immunizations Name Administration Dates Next Due COVID-19 [...] on file documented as of this encounter Last Filed Vital Signs Vital Sign Reading Time Taken Comments Blood Pressure 120/68 10/21/2023 11:16 AM EDT Pulse 76 10/21/2023 11:16 AM EDT Temperature 36.4 C (97.5 F) 10/21/2023 11:16 AM E DT Respiratory Rate 16 10/21/2023 11:16 AM EDT Oxygen Saturation 96% 10/21/2023 11:16 AM EDT Inhaled Oxygen Concentration - - Weight 76.3 kg (168 lb 4.8 oz) 10/21/2023 11:16 AM EDT Height - - Body Mass Index 31.29 08/18/2023 9:44 AM EDT documented in this encounter Progress Notes * Eric Moody MD - 10/21/2023 11:34 AM EDT Images from the original note were not included. Assessment and Plan 73-year-old female presents for preop evaluation prior to right shoulder replacement scheduled on 11/02/[address] [place] [facility] Patient was appropriate to proceed with surgery as scheduled. Chronic medical conditions are under optimal control. She should discontinue her Mobic 7 days prior to surgery. She should hold all medications other than omeprazole the day of surgery. No further lab work or imaging is required from my perspective prior to surgery. Patient does have transportation to and from and will have home health PT postop. 1. Primary osteoarthritis of right shoulder 2. HTN, goal below 140/90 3. Dyslipidemia, goal LDL below 100 4. Prediabetes 5. Chronic kidney disease, stage 3a (HCC) Wrap-Up Follow up as needed. History of Present Illness The patient is a 73-year-old female with past medical history of prediabetes, dyslipidemia, hypertension, obesity, CKD stage IIIA who presents for preop evaluation prior to Right shoulder replacementscheduled on 11/02/[address] Patel [place] [facility]. 73-year-old female presents for preop evaluation prior to right shoulder replacement. She was significant pain of the right shoulder and severely limited range of motion to 20 of abduction and 30of forward flexion. She has significant difficulty with both internal and external rotation of the shoulder. We reviewed her past medical history. This includes prediabetes with an A1c of 5.9, dyslipidemia onsimvastatin 40 mg daily, CKD stage IIIA with a GFR of 58 on recent lab work. She takes meloxicam 7.5 mg daily to assist with pain. She takes omeprazole for GERD. No history of anesthesia complications. Her allergies include Lovenox and sulfa antibiotics. 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, R radical colectomy Chronic rhinitis Depressive disorder, not elsewhere classified Dyslipidemia, goal to be determined HTN, goal below 130/80 09/28/2018 Impaired fasting glucose Past Surgical History: Procedure Laterality Date COLONOSCOPY W/ LESION REMOVAL, SNARE 08/28/2009 polyps x 2 adenomatous tissue& diverticulosis & hemorrhoids COLONOSCOPY, DIAGNOSTIC (RECTUM) 09/28/2012 COLONOSCOPY FLEXIBLE PROXIMAL DIAGNOSTIC performed by Kelvin Stokes MD at ENDOSCOPY [facility], hyperplastic and adenomatous polyps repeat colonoscopy in 3 years COLONOSCOPY, DIAGNOSTIC (RECTUM) 04/09/2016 hyperplastic polyp, diverticulosis, repeat 5 yrs/COLONOSCOPY FLEXIBLE PROXIMAL DIAGNOSTIC performedby Kelvin Stokes MD at ENDOSCOPY [facility] COLONOSCOPY, DIAGNOSTIC (RECTUM) 11/09/2017 normal bx, repeat 5 yrs/COLONOSCOPY FLEXIBLE PROXIMAL DIAGNOSTIC performed by Tracey An MD at ENDOSCOPY [facility] COLONOSCOPY, DIAGNOSTIC (RECTUM) 11/13/2022 patent end to side ileo-colonic anastomosis/hemorrhoids/biopsies show hyperplastic polyps/recall 3 years/COLONOSCOPY FLEXIBLE PROXIMAL DIAGNOSTIC performed by Tracey An MD at ENDOSCOPY [facility] DILATION AND CURETTAGE (D&C) D&C DILATION AND CURETTAGE (D&C) D&C LAPAROSCOPY;UNLISTED APPENDIX 10/22/2017 10/22/2017 laparoscopic appendectomy [facility] DR. Jones PARTIAL REMOVAL OF COLON Right REMOVE GALLBLADDER Cholecystectomy Family History Problem Relation Name Age of Onset Cancer Mother colon Diabetes Mother Cancer Father lung Mental Disorder Father VERA Diabetes Grandmother (Maternal) Neurological Disorder Brother Keila Gehrigs disease Mental Disorder Sister schizophrenia Cancer Sister breast age 53 Social History Socioeconomic History Marital status: Spouse name: Not on file Number of children: Not on file Years of education: Not on file Highest education level: Not on file Occupational History Not on file Tobacco Use Smoking status: Every Day Current packs/day: 1.00 Average packs/day: 1 pack/day for 30.0 years (30.0 ttl pk-yrs) Types: Cigarettes Passive exposure: Never Smokeless tobacco: Never Substance and Sexual Activity Alcohol use: No Comment: very rare Drug use: No Sexual activity: Yes Partners: Male Other Topics Concern Not on file Social History Narrative Not on file Social Determinants of Health Financial Resource Strain: Not on file Food Insecurity: No Food Insecurity (08/14/2022) Hunger Vital Sign Worried About Running Out of Food in the Last Year: Never true Ran Out of Food in the Last Year: Never true Transportation Needs: Not on file Physical Activity: Not on file Stress: Not on file Social Connections: Not on file Intimate Partner Violence: Not on file Housing Stability: Not on file Review of patient's allergies indicates: Allergen Reactions Lovenox [Enoxaparin Sodium] Flushing and Rash Sulfa Antibiotics nausea Physical Exam Vitals: 10/21/23 1116 Temp: 36.4 C (97.5 F) Pulse: 76 Resp: 16 SpO2: 96% BP: 120/68 Physical Exam Physical Exam Vitals reviewed. Constitutional: General: She is not in acute distress. Cardiovascular: Rate and Rhythm: Normal rate and regular rhythm. Heart sounds: No murmur heard. Pulmonary: Effort: Pulmonary effort is normal. No respiratory distress. Breath sounds: Normal breath sounds. No wheezing. Musculoskeletal: Cervical back: Neck supple. Right lower leg: No edema. Left lower leg: No edema. Comments: Severely limited range of motion to 20 with abduction and 30 with forward flexion. Maximum 10 of internal and external rotation of the shoulder. Lymphadenopathy: Cervical: No cervical adenopathy. Neurological: Mental Status: She is alert. Time: I spent a total of 30-39 minutes (exact time 32 mins) on the date of service in preparation, delivery, and documentation of the care provided to the patient excluding any time spent in the performance of separately billed services. This note has been completed in part utilizing [employer] Speech Voice Recognition Software. Due to technical limitations of the software, grammatical errors, random word insertions, prounoun errors, and incomplete sentences may occur. Any formal questions or concerns about the content, text, or information contained within the body of this dictation should be directly addressed to the provider for clarification. documented in this encounter Nursing Notes * Vani Morales LPN - 10/21/2023 11:12 AM EDT Chief Complaint Patient presents with pre-op exam Pt here for pre op exam for shoulder surgery Pt went to dentist to get a fitting for a top plate on September 24. Thursday the and the pt discovered a lump on the top of the month. The 30 of september pt started on an antibiotics. Dentist thinks pt may have shingles in her mouth. documented in this encounter Plan of Treatment Upcoming Encounters Date Type Department Care Team (Late st Contact Info) Description 11/26/2023 8:00 AM EDT Office Visit Dermatology, [address] [place] [address] Malgorzata Springer PA-C [address] [place] [address] [place] [address] 12/01/2023 11:30 AM EDT Laboratory Laboratory, [place] [address] [place] [address] [place] [phone] [facility] [address] [place] [facility] [place] [address] 12/10/2023 12:00 PM EDT Office Visit [facility] [place] [address] [facility] [address] Toya Turk CRNP [address] [place] [address] 03/02/2024 7:40 AM EDT Laboratory Laboratory, [place] [address] [place] [facility] [place] [address] [facility] [address] [place] [address] 03/07/2024 9:00 AM EDT Office Visit Family [facility], [place] [address] [place] [facility] [place] [address] Monico Modi MD [address] [facility] [place] [id number] Scheduled Procedures Name Priority Associated Diagnoses Date/Ti me COLONOSCOPY FLEXIBLE PROXIMA L DIAGNOSTIC Recall History of colonic polyps Health Maintenance Due Date Last Done Comments COVID-19 Vaccine ( season) 2023 03/09/2023, 02/26/2022, 10/19/2021, Additional history exists Depression Screening 08/15/2023 08/14/2022 GFR 02/04/2024 08/04/2023, 04/02, 02/04/2023, Additional history exists Albumin/Creatinine Ratio 08/03/2024 08/04/2023, 0307/2022 CKD HGB USE SMARTSET 56360 08/03/202408/03, 04/28/2023, 07/31/2022, Additional history exists CKD PHOS USE SMARTSET 55094 08/03/2024 08/04/2023, 0 07/31/2022 HbA1c 08/03/2024 08/04/2023, 09/0 10/2022, 07/31/2022, Additional history exists Colonoscopy 11/13/2025 11/13/2022, 10/30, 11/09/2017, Additional history exists DXA Scan 10/03/2027 10/02/2020, 08/30, 09/14/2013 DTaP,Tdap,and Td Vaccines (3 - Td or Tdap) 03/01/2030 03/01/2020, 02/28/2010, 02/06/2005, Additional history exists Pneumococcal Vaccine: 65+ Years Completed 03/23/2015, 04/17/2014 Zoster Vaccines Completed 08/12/2019, 05/01, 05/13/2015 RETIRED - COLONOSCOPY-EVERY 5 YRS AGES 18-100 Discontinued 11/13/2022, 11/13/2022, 11/09/2017, Additional history exists Influenza Vaccine (FLU shot) Completed 02/04/2023, 02/09/2022, 02/03/2020, Additional history exists GARDASIL-HPV IMMUNIZATION SERIES Aged [...] as of this encounter Visit Diagnoses Diagnosis Primary osteoarthritis of right shoulder- Primary Primary localized osteoarthrosis, shoulder region HTN, goal below 140/90 Unspecified essential hypertension Dyslipidemia, goal LDL below 100 Other and unspecified hyperlipidemia Prediabetes Other abnormal glucose Chronic kidney disease, stage 3a (HCC) documented in this encounter Care Teams [employer] Worker Relationship Specialty Start Date End Date Monico Modi MD [address] [place] [address] PCP - General Family Medicine 09/23/19 documented as of this encounter
--- OUTSIDE RECORDS SUMMARY | 2023-11-02 07:30 | External Medical Summary ---
Author Name Unknown Address Unknown Organization [id number]:[facility]ATORY [facility] [place] [address] [place] [address] Laboratory Report Ordering Provider Test Date Status GREER GALVAN 08/04/2023 08:09:50 Final Observation Date Value Abnormality Reference (Units ) Status MYCODE SPECIMEN-SST 08/04/2023 08:09:50 Freezing of extracted DNA, whole blood and/or serum. Final Performing Location LABORATORY C - [address] [place] [address]
--- OUTSIDE RECORDS SUMMARY | 2023-11-02 07:30 | External Medical Summary ---
Author Name Unknown Address Unknown Organization K01:[facility]ATORY [facility] [place] - [facility][note 3] [address] [place] [address] Laboratory Report Ordering Provider Test Date Status LISA PATEL 08/04/2023 08:09:50 Final Observation Date Value Abnormality Reference (Units ) Status BUN 08/04/2023 08:09:50 24 Above high normal 6-20 (mg/dL) Final Creatinine 08/04/2023 08:09:50 1.0 0.5-1.0 (mg/dL) Final Glomerular filtration rate/1.73 sq M.predicted [Volume Rate/Area] in Serum, Plasma or Blood by Creatinine-based formula (CKD-EPI) 08/04/2023 08:09:50 58 Below low normal >=60 (mL/min) Final eGFR is calculated based on the CKD-EPI 2020 equation SODIUM 08/04/2023 08:09:50 136 135-146 (m mol/L) Final Potassium 08/04/2023 08:09:50 4.8 3.5-5.1 (m mol/L) Final Cl 08/04/2023 08:09:50 99 98-107 (mm ol/L) Final CO2 08/04/2023 08:09:50 26 22-32 (mmo l/L) Final Anion gap 08/04/2023 08:09:50 11 7-15 (mmol /L) Final Glucose 08/04/2023 08:09:50 100 70-120 (mg /dL) Final Calcium 08/04/2023 08:09:50 9.6 8.4-10.2 ( mg/dL) Final Performing Location LABORATORY [facility] [place] - [address] [place] [address]
--- OUTSIDE RECORDS SUMMARY | 2023-11-02 07:30 | External Medical Summary ---
Author Name Unknown Address Unknown Organization K01:[facility]ATORY [facility] [place] - [address] [place] [address] Laboratory Report Ordering Provider Test Date Status GREER GALVAN 08/04/2023 08:09:50 Final Observation Date Value Abnormality Reference (Units ) Status MYCODE SPECIMEN-SST 08/04/2023 08:09:50 Freezing of extracted DNA, whole blood and/or serum. Final Performing Location LABORATORY C - [address] [place] [address]
--- OUTSIDE RECORDS SUMMARY | 2023-11-02 07:30 | External Medical Summary ---
Author Name Unknown Address Unknown Organization K01:LABORATORY [facility] [place] [place] - [address] [place] [address] Laboratory Report Ordering Provider Test Date Status LISA PATEL 08/04/2023 08:09:50 Final Normal: <30 mg/g creatinine< br/>High: 30-300 mg/g creatinine
Very High: >300 mg/g creatinine
Nephrotic: >2200 mg/g creatinine Observation Date Value Abnormality Reference (Units ) Status Albumin, Urine 08/04/2023 08:09:50 3.06 (mg/dL) Final Creatinine, Urine 08/04/2023 08:09:50 217 (mg/dL) Final Albumin/Creatinine [Mass Ratio] in Urine 08/04/2023 08:09:50 14 <30 (mg/g Creat) Final Performing Location LABORATORY [facility] [place] [place] - [address] [place] [address]
--- OUTSIDE RECORDS SUMMARY | 2023-11-02 07:30 | External Medical Summary ---
Author Name Unknown Address Unknown Organization K01:[facility]ORY [facility] - [address] [place] [address] Laboratory Report Ordering Provider Test Date Status LISA PATEL 08/04/2023 08:09:50 Final Observation Date Value Abnormality Reference (Units ) Status Phosphate 08/04/2023 08:09:50 3.6 2.5-4.8 (m g/dL) Final Performing Location LABORATORY [facility] - [address] [place] [address]
--- OUTSIDE RECORDS SUMMARY | 2023-11-02 07:30 | External Medical Summary | Summary of Care ---
Author Name Unknown Organization [facility] Address [address] [place] [address] Phone [phone] Care Team Providers Care Retread Mold Operator Name Role Phone Monico Modi MD Primary Care Provider [phone]- [phone] Reason for Visit * Reason Comments Status Check Return in 6 months Encounter Details Date Type Department Care Team (Late st Contact Info) Description 08/18/2023 9:20 AM EDT Office Visit [facility] [address] [place] [address] Monico Modi MD [address] [place] [address] HTN, goal below 140/90*; Chronic kidney disease, stage 3a (HCC); Anxiety state; Dyslipidemia, goal LDL below 100; Prediabetes; B12 deficiency; Encounter for long-term (current) use of medications Allergies Active Allergy Reactions Criticality Noted Date Comments Enoxaparin Sodium Flushing,Rash 02/09/2018 Sulfa Antibiotics 03/19/1999 nausea documented as of this encounter (statuses as of 08/18/2023) Medications Medication Sig Dispensed Refills Start Date End Date Status METAMUCIL 28.3 % PO POWD Uses once daily 0 Active B-12 1000 MCG Oral Tablet Take 1 by mouth per day 30 Tab 5 08/07/2020 Active Calcium 1000 + D 1000-800 MG-UNIT Oral Tablet (Calcium Carb-Cholecalcif omega) Take 1 Tab by mouth daily. 0 Active Nystatin 740871 UNIT/ML Mouth/Throat SuspensionIndica tions:Abnormal CT lung screening [...] mouth daily 90 Tablet 3 08/18/2023 Active Simvastatin 40 MG Oral Tablet (Zocor)Indicatio ns:Dyslipidemia, goal LDL below 100 TAKE 1 TABLET BY MOUTH EVERYDAY AT BEDTIME 90 Tablet 2 12/22/2022 4 Discontinue d(Refill) Omeprazole 20 MG Oral Capsule Delayed Release (PriLOSEC)Indica tions:GERD (gastroesophagea l reflux disease) TAKE 1 CAPSULE BY MOUTH 1 HOUR BEFORE THE FIRST MEAL OF THE DAY 90 Capsule 2 12/22/2022 4 Discontinue d(Refill) Hospital, Clinic, or Other Facility Administered Medication Ordered Dose Route Frequency Start Date End Date Status Hylan (Synvisc) inj 16 mgIndications:Primary osteoarthritis of right knee 16 mg IX QWEEK 09/30/2022 Active documented as of this encounter (statuses as of 08/18/2023) Active Problems Problem Noted Date Diagnosed Date [...] as of this encounter (statuses as of 08/18/2023) Resolved Problems Problem Noted Date Diagnosed Date [...] as of this encounter (statuses as of 08/18/2023) Immunizations Name Administration Dates Next Due COVID-19 mRNA, LNP-s, No Pre serve, 2-Dose Series ([employer]) 08/29/2020,08/08/2020 COVID-19, mRNA, LNP-s, PF, B ooster, [...] Passive Smoke Exposure: Never Smokeless Tobacco: Never Tobacco Cessation:Ready to Q uit: Not Asked; Counseling Given: Not Answered Alcohol Use Standard Drinks/Week Comments No 0 [...] Sign Reading Time Taken Comments Blood Pressure 128/60 08/18/2023 9:44 AM EDT Pulse 78 08/18/2023 9:44 AM EDT Temperature 36.6 C (97.8 F) 08/18/2023 9:44 AM ED T Respiratory Rate 20 08/18/2023 9:44 AM EDT Oxygen Saturation 96% 08/18/2023 9:44 AM EDT Inhaled Oxygen Concentration - - Weight 75.7 kg (166 lb 12.8 oz) 08/18/2023 9:44 AM EDT Height 156.2 cm (5' 1.5") 08/18/2023 9:44 AM EDT Body Mass Index 31.01 08/18/2023 9:44 AM EDT documented in this encounter Progress Notes * Monico Modi MD - 08/18/2023 10:01 AM EDT Subjective: Mendy Lion is a 73 year old female here today for Chief Complaint Patient presents with Status Check Return in 6 months Pt reports increase in stress and anxiety related to multiple stressors: Nephew passed in Nov Sister started chemo Ventral hernia surg 06/02/23 Girlfriend with brain cancer, surg She states that she was on lorazepam in the past with Dr Navarro and is requesting that she have aprescription to use rarely when stress is overwhelming. She knows that she tolerates it well and isaware of the possible side effects. Sched for right shoulder surg November 01 - Dr Patel Lump in left axilla - 3 months. NL mammogram 05/24. Palpates as a leslie cyst. Offered surg for consideration of removal. 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, R radical colectomy Chronic rhinitis Depressive disorder, not elsewhere classified Dyslipidemia, goal to be determined HTN, goal below 130/80 09/28/2018 Impaired fasting glucose Past Surgical History: Procedure Laterality Date COLONOSCOPY W/ LESION REMOVAL, SNARE 08/28/2009 polyps x 2 adenomatous tissue& diverticulosis & hemorrhoids COLONOSCOPY, DIAGNOSTIC (RECTUM) 09/28/2012 COLONOSCOPY FLEXIBLE PROXIMAL DIAGNOSTIC performed by Kelvin Stokes MD at ENDOSCOPY [facility], hyperplastic and adenomatous polyps repeat colonoscopy in 3 years COLONOSCOPY, DIAGNOSTIC (RECTUM) 04/09/2016 hyperplastic polyp, diverticulosis, repeat 5 yrs/COLONOSCOPY FLEXIBLE PROXIMAL DIAGNOSTIC performedby Kelvin Stokes MD at [facility]COPY [facility] COLONOSCOPY, DIAGNOSTIC (RECTUM) 11/09/2017 normal bx, repeat 5 yrs/COLONOSCOPY FLEXIBLE PROXIMAL DIAGNOSTIC performed by Tracey An MD at [facility]OSCOPY [facility] COLONOSCOPY, DIAGNOSTIC (RECTUM) 11/13/2022 patent end to side ileo-colonic anastomosis/hemorrhoids/biopsies show hyperplastic polyps/recall 3 years/COLONOSCOPY FLEXIBLE PROXIMAL DIAGNOSTIC performed by Tracey An MD at [facility]OSCOPY [facility] DILATION AND CURETTAGE (D&C) D&C DILATION AND CURETTAGE (D&C) D&C LAPAROSCOPY;UNLISTED APPENDIX 10/22/2017 10/22/2017 laparoscopic appendectomy [facility] DR. Jones PARTIAL REMOVAL OF COLON Right REMOVE GALLBLADDER Cholecystectomy Review of patient's allergies indicates: Allergen Reactions Lovenox [Enoxaparin Sodium] Flushing and Rash Sulfa Antibiotics nausea Current Outpatient Medications Medication Sig Dispense Refill B-12 1000 MCG Oral Tablet Take 1 by mouth per day 30 Tab 5 Calcium 1000 + D 1000-800 MG-UNIT Oral Tablet (Calcium Carb-Cholecalciferol) Take 1 Tab by mouth daily. SilvaSorb External Gel Apply topically to affected area 2 times a day . Apply to buttocks 44.4 mL 3 Montelukast Sodium 10 MG Oral Tablet (Singulair) Take 1 Tablet by mouth in the morning. (Patient taking differently: Take 1 Tablet by mouth in the morning.) 90 Tablet 3 Meloxicam 7.5 MG Oral Tablet (Mobic) TAKE 1 TABLET BY MOUTH DAILY FOR PAIN. 90 Tablet 2 Polyethylene Glycol 3350 17 GM/SCOOP Oral Powder (MiraLax) Take 17 g by mouth in the morning. Lisinopril 10 MG Oral Tablet (Prinivil) TAKE 1 TABLET BY MOUTH EVERY DAY 90 Tablet 2 LORazepam 0.5 MG Oral Tablet (Ativan) One pill by mouth 3 times a day as needed for anxiety 30 Tablet 0 Omeprazole 20 MG Oral Capsule Delayed Release (PriLOSEC) TAKE 1 CAPSULE BY MOUTH 1 HOUR BEFORE THE FIRST MEAL OF THE DAY 90 Capsule 3 Simvastatin 40 MG Oral Tablet (Zocor) Take 1 tab by mouth daily 90 Tablet 3 METAMUCIL 28.3 % PO POWD Uses once daily (Patient not taking: Reported on 08/18/2023) Nystatin 099036 UNIT/ML Mouth/Throat Suspension Swish and swallow 5 mL in the morning AND 5 mL at noon AND 5 mL in the evening AND 5 mL before bedtime. For thrush.. (Patient not taking: Reported on 08/18/2023) 600 mL 0 Restasis 0.05 % Ophthalmic Emulsion (Patient not taking: Reported on 06/29/2023) Probiotic 1-250 BILLION-MG Oral Capsule Take by mouth 2 times a day. (Patient not taking: Reported on 06/29/2023) Current Facility-Administered Medications Medication Dose Route Frequency Provider Last Rate Last Admin Hylan (Synvisc) inj 16 mg 16 mg Intra-Articular Q Week Sebastien Babin MD 16 mg at 09/30/22 1316 Objective: BP 128/60 | Pulse 78 | Temp 36.6 C (97.8 F) (Temporal Artery) | Resp 20 | Ht 1.562 m(5' 1.5") | Wt 75.7 kg (166 lb 12.8 oz) | LMP 10/31/1999 | SpO2 96% | BMI 31.01 kg/m | BSA 1.81 m GEN: NAD HEENT: Benign NECK: Supple with no LAD, TM, JVD CHEST: CTA B CV: RRR ABD: Soft, NT/ND, No HSM, NABS EXT: No c,c,e Left axilla - small 0.5 cm smooth, mobile lump superficial. No erythema. Assessment and Plan: HTN, goal below 140/90 (Primary) - COMPREHENSIVE METABOLIC PANEL; Future; Expected date: 08/18/2023 -continue same meds Chronic kidney disease, stage 3a (HCC) -stable, continue to monitor. Anxiety state - LORazepam 0.5 MG Oral Tablet (Ativan); One pill by mouth 3 times a day as needed for anxiety -pt aware to take rarely. If needed regularly, should consider different, daily medication. GERD (gastroesophageal reflux disease) - Omeprazole 20 MG Oral Capsule Delayed Release (PriLOSEC); TAKE 1 CAPSULE BY MOUTH 1 HOUR BEFORE THE FIRST MEAL OF THE DAY Dyslipidemia, goal LDL below 100 - Simvastatin 40 MG Oral Tablet (Zocor); Take 1 tab by mouth daily - LIPID PANEL WITH DIRECT LDL IF TG IS HIGH; Future; Expected date: 08/18/2023 Prediabetes - HEMOGLOBIN A1C; Future; Expected date: 08/18/2023 B12 deficiency - VITAMIN B12; Future; Expected date: 08/18/2023 Encounter for long-term (current) use of medications - VITAMIN B12; Future; Expected date: 08/18/2023 - MAGNESIUM; Future; Expected date: 08/18/2023 Probable sebaceous cyst in axilla -offered referral to surg to consider removal. She declines at this time. Is aware of the possibility of growth, infection. Call for new or worsening symptoms. Follow Up: Return in about 6 months (around 02/18/2024) for recheck. | For: recheck 42 min with pt and documentation Monico Modi MD documented in this encounter Nursing Notes * Teresa Umaña LPN - 08/18/2023 9:44 AM EDT The patient has been properly identified by confirmation of name and date of . Chief Complaint Patient presents with Status Check Return in 6 months documented in this encounter Plan of Treatment Upcoming Encounters Date Type Department Care Team (Late st Contact Info) Description 11/26/2023 8:00 AM EDT Office Visit Dermatology, [place] [address] [facility], [place] [address] Malgorzata Springer PA-C [address] [place] [address] [place] [id number] 12/01/2023 11:30 AM EDT Laboratory Laboratory, [place] [address] [facility], [place] [address] [place] [address] [facility], [place] [address] 12/10/2023 12:00 PM EDT Office Visit Hematology/Oncology [facility] [place] [address] [facility] [phone] Toya Turk CRNP [address] [facility] [place] [address] 03/02/2024 7:40 AM EDT Laboratory Laboratory, [place] [address] [place] [address] [place] [address] [facility], [place] [id number] 03/07/2024 9:00 AM EDT Office Visit [facility], [place] [address] [facility], [place] [address] Monico Modi MD [address] [facility] [address] Scheduled Orders Name Type Priority Associated Diagnoses Orde r Schedule VITAMIN B12 Lab Routine B12 deficiency Encounter for long-term (current) use of medications Expected: 08/18/2023 (Approximate), Expires: 08/17/2024 COMPREHENSIVE METABOLIC PANEL Lab Routine HTN, goal below 140/90 Expected: 08/18/2023 (Approximate), Expires: 08/17/2024 MAGNESIUM Lab Routine Encounter for long-term (current) use of medications Expected: 08/18/2023 (Approximate), Expires: 08/17/2024 LIPID PANEL WITH DIRECT LDL IF TG IS HIGH Lab Routine Dyslipidemia, goal LDL below 100 Expected: 08/18/2023, Expires: 08/17/2024 HEMOGLOBIN A1C Lab Routine Prediabetes Expected: 08/18/2023 (Approximate), Expires: 08/17/2024 Scheduled Procedures Name Priority Associated Diagnoses Date/Ti me COLONOSCOPY FLEXIBLE PROXIMA L DIAGNOSTIC Recall History of colonic polyps Health Maintenance Due Date Last Done Comments Depression Screening 08/15/2023 08/14/2022 GFR 02/04/2024 08/04/2023, 04/02, 02/04/2023, Additional history exists Albumin/Creatinine Ratio 08/03/2024 08/04/2023, 07/2022 CKD HGB USE SMARTSET 62407 08/03/202408/03, 04/28/2023, 07/31/2022, Additional history exists CKD PHOS USE SMARTSET 79930 08/03/2024 08/04/2023, 0 07/31/2022 HbA1c 08/03/2024 08/04/2023, [...] encounter Visit Diagnoses Diagnosis HTN, goal below 140/90- Primary Unspecified essential hypertension Chronic kidney disease, stage 3a (HCC) Anxiety state Anxiety state, unspecified Dyslipidemia, goal LDL below 100 Other and unspecified hyperlipidemia Prediabetes Other abnormal glucose B12 deficiency Other B-complex deficiencies Encounter for long-term (current) use of medications Encounter for long-term (current) use of other medications documented in this encounter Care Teams Retread Mold Operator Relationship Specialty Start Date End Date Monico Modi MD [address] [place] [address] PCP - General Family Medicine 09/23/19 documented as of this encounter
--- OUTSIDE RECORDS SUMMARY | 2023-11-02 07:30 | External Medical Summary | Summary of Care ---
Author Name Unknown Organization [facility] Address [address] [place] [address] Phone [phone] Care Team Providers Care Cane Weigher Helper Name Role Phone Monico Modi MD Primary Care Provider [phone]- [phone] Reason for Visit * Reason Comments Outpatient Testing Encounter Details Date Type Department Care Team (Late st Contact Info) Description 08/04/2023 8:00 AM EST Laboratory Laboratory, [place] [address] [place] [address] [place] [address] [place] [address] [employer] Other*[id number]; Prediabetes; Chronic kidney disease, stage 3a (HCC); HTN, goal below 130/80 Allergies Active Allergy Reactions Criticality Noted Date Comments Enoxaparin Sodium Flushing,Rash 02/09/2018 Sulfa Antibiotics 03/19/1999 nausea documented as of this encounter (statuses as of 08/04/2023) Medications Medication Sig Dispensed Refills Start Date End Date Status METAMUCIL 28.3 % PO POWD Uses once daily 0 Active B-12 1000 MCG Oral Tablet Take 1 by mouth per day 30 Tab 5 08/07/2020 Active Calcium 1000 + D 1000-800 MG-UNIT Oral Tablet (Calcium Carb-Cholecalcifer ol) Take 1 Tab by mouth daily. 0 Active Nystatin 438965 UNIT/ML Mouth/Throat SuspensionIndicati ons:Abnormal CT lung screening [...] mouth 2 times a day. 0 Active Lisinopril 10 MG Oral Tablet (Prinivil)Indicati ons:HTN, goal below 130/80 TAKE 1 TABLET BY MOUTH EVERY DAY 90 Tablet 2 11/14/2022 Active Meloxicam 7.5 MG Oral Tablet (Mobic)Indications :Pain TAKE 1 TABLET BY MOUTH DAILY FOR PAIN. 90 Tablet 2 12/09/2022 Active Simvastatin 40 MG Oral Tablet (Zocor)Indications :Dyslipidemia, goal LDL below 100 TAKE 1 TABLET BY MOUTH EVERYDAY AT BEDTIME 90 Tablet 2 12/22/2022 Active Omeprazole 20 MG Oral Capsule Delayed Release (PriLOSEC)Indicati ons:GERD (gastroesophageal reflux disease) TAKE 1 CAPSULE BY MOUTH 1 HOUR BEFORE THE FIRST MEAL OF THE DAY 90 Capsule 2 12/22/2022 Active Polyethylene Glycol 3350 17 GM/SCOOP Oral Powder (MiraLax) Take 17 g by mouth in the morning. 0 Active Hospital, Clinic, or Other Facility Administered Medication Ordered Dose Route Frequency Start Date End Date Status Hylan (Synvisc) inj 16 mgIndications:Primary osteoarthritis of right knee 16 mg IX QWEEK 09/30/2022 Active documented as of this encounter (statuses as of 08/04/2023) Active Problems Problem Noted Date Diagnosed Date [...] as of this encounter (statuses as of 08/04/2023) Resolved Problems Problem Noted Date Diagnosed Date [...] as of this encounter (statuses as of 08/04/2023) Immunizations Name Administration Dates Next Due COVID-19 mRNA, LNP-s, No Pre serve, 2-Dose Series ([employer]) 08/29/2020,08/08/2020 COVID-19, mRNA, LNP-s, PF, B ooster, [...] Description 08/18/2023 9:20 AM EDT Office Visit [facility] [place] [address] [address] [facility] [phone] Monico Modi MD [address] [facility] [address] 11/26/2023 8:00 AM EDT Office Visit [facility], [place] [address] [facility] [address] Malgorzata Springer PA-C [address] [place] [address] [place] [address] 12/01/2023 11:30 AM EDT Laboratory [facility], [place] [address] [facility] [address] [facility] [address] [facility] [place] [id number] 12/10/2023 12:00 PM EDT Office Visit Hematology/Oncology [facility] [place] [address] [facility] [phone] Toya Turk CRNP [address] [place] [address] Pending Results Name Type Priority Associated Diagnoses Date /Time MYCODE SUBSEQUENT ADULT Lab Routine [employer] Other*[id number] 08/04/2023 8:09 AM EST HEMOGLOBIN A1C Lab Routine Prediabetes 08/04/2023 8:09 AM EST CBC Lab Routine Chronic kidney disease, stage 3a (HCC) 08/04/2023 8:09 AM EST PTH Lab Routine Chronic kidney disease, stage 3a (HCC) 08/04/2023 8:09 AM EST PHOSPHORUS Lab Routine Chronic kidney disease, stage 3a (HCC) 08/04/2023 8:09 AM EST ALBUMIN / CREATININE RATIO, URINE Lab Routine HTN, goal below 130/80 Chronic kidney disease, stage 3a (HCC) 08/04/2023 8:09 AM EST BASIC METABOLIC PANEL Lab Routine HTN, goal below 130/80 Prediabetes Chronic kidney disease, stage 3a (HCC) 08/04/2023 8:09 AM EST MYCODE SST1 Lab Routine [employer] Other*[id number] 08/04/2023 8:09 AM EST MYCODE SST2 Lab Routine [employer] Other*[id number] 08/04/2023 8:09 AM EST Scheduled Procedures Name Priority Associated Diagnoses Date/Ti me COLONOSCOPY FLEXIBLE PROXIMA L DIAGNOSTIC Recall History of colonic polyps Health Maintenance Due Date Last Done Comments Albumin/Creatinine Ratio 08/01/2023 07/31/2022 CKD PHOS USE SMARTSET 69385 08/01/2023 07/31/2022 Depression Screening 08/15/2023 08/14/2022 GFR 10/27/2023 04/28/2023, 10/2022, 07/31/2022, Additional history exists HbA1c 02/05/2024 02/04/2023, 0307/2022, 01/30/2022, Additional history exists CKD HGB USE SMARTSET 83461 04/28/202404/28, 07/31/2022, 03/31/2022, Additional history exists COLONOSCOPY-EVERY 3 YRS AGES [...] as of this encounter Visit Diagnoses Diagnosis [employer] Other*[id number] Prediabetes Other abnormal glucose Chronic kidney disease, stage 3a (HCC) HTN, goal below 130/80 Unspecified essential hypertension documented in this encounter Care Teams Cane Weigher Helper Relationship Specialty Start Date End Date Monico Modi MD [address] [place] [address] PCP - General Family Medicine 09/23/19 documented as of this encounter
[2023-11-02] MEDS ORDERED: ONDANSETRON INJ 2 MG/ML 2 ML VIAL ONE (07:49)
[2023-11-02] MEDS ORDERED: PROPOFOL IV EMULSION 10 MG/ML 20 ML VIAL IV ONE (07:49)
[2023-11-02] MEDS ORDERED: MIDAZOLAM HCL 1 MG/ML 2ML VIAL ONE (07:49)
[2023-11-02] MEDS ORDERED: fentaNYL citrate PF 100 MCG/2 ML VIAL ONE (07:49)
[2023-11-02] MEDS ORDERED: LIDOCAINE 2% 2 ML VIAL/AMP(20MG/ML) INFIL ONE (07:49)
[2023-11-02] MEDS ORDERED: fentaNYL citrate PF 100 MCG/2 ML VIAL IV PRN (07:51)
[2023-11-02] MEDS ORDERED: ePHEDrine sulfate 50 MG/ML AMP IV PRN (07:51)
[2023-11-02] MEDS ORDERED: ATROPINE SULFATE 0.1 MG/ML 10ML SYR IV PRN (07:51)
[2023-11-02] MEDS ORDERED: ONDANSETRON INJ 2 MG/ML 2 ML VIAL IV PRN ×2 (07:51→10:56)
--- NOTE | 2023-11-02 07:54 | History & Physical Bridge Note ---
Date of Service November 02, 2023 History & Physical Bridge Note I have examined the patient, reviewed the History & Physical and in the interval since the performance of the History & Physical I have noted the following changes of clinical significance: no changes noted
[2023-11-02] MEDS: LR 15ML/HR IV SCH (08:15)
[2023-11-02] MEDS: dexAMETHasone**PF** 10 MG/ML VIAL IV SCH (08:16)
[2023-11-02] MEDS: LR 60ML/HR IV SCH (08:16)
[2023-11-02] MEDS: FAMOTIDINE 20 MG TAB PO SCH (08:17)
[2023-11-02] MEDS: GABAPENTIN 300 MG CAP PO SCH (08:17)
[2023-11-02] MEDS: ACETAMINOPHEN 500 MG TAB PO SCH ×2 (08:17→13:53)
[2023-11-02] MEDS: TRANEXAMIC ACID 1,000 MG **IV Pre-op IV SCH (08:41)
[2023-11-02] MEDS: ceFAZolin 2000MG 2,000 MG/15 ML SYR IV SCH ×2 (08:50→16:32)
[2023-11-02] MEDS: ROPIV 0.5% 246mg, Ketorolac 30mg, EPINEPHrine 0.5mg in NSS INFIL SCH (09:36)
[2023-11-02] MEDS: TRANEXAMIC ACID 1,000 MG **IV Intra-op IV SCH (09:46)
--- NOTE | 2023-11-02 09:46 | Operative Report ---
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 A tenodesis was opted. This was a separate and distinct portion of the procedure. For these reasons, a CPT code modifier 59 will be added to this case. Implants used: I used a [employer] Comprehensive reverse total shoulder arthroplasty system with a size 12 press fit micro humeral stem, a +6 offset humeral tray and a standard humeral bearing, a 25 mm baseplate with a 6.5 mm central screw and superior and inferior locking screws, and a size 36 mm eccentric glenosphere. Mendy arrived at [facility] for the above procedure. She was seen in the preoperative holding area and the operative extremity was identified and signed. She was given a preoperative antibiotic, TXA, and an interscalene nerve block. She was taken back to the operating room, laid on table in supine position, and put under general anesthesia. She was then put into the beachchair position. The shoulder was then prepped and draped in sterile fashion. A timeout was done and the patient and the operative extremity was properly identified. A deltopectoral approach was used. Dissection was taken down through the fascia and the deltoid was retracted laterally and the conjoined tendon was retracted medially. The anterior shoulder was exposed. The biceps groove was opened up and the biceps tendon was examined extensively. The biceps tendon demonstrated enlargement and inflammatory changes consistent with longstanding inflammation in the context of osteoarthritis and cuff arthropathy. The long head of the biceps tendon was then tenodesed to the upper border of the pectoralis major. This was a separate and distinct portion of the procedure. The subscapularis was then directly released off the lesser tuberosity with a peel technique. The inferior capsule was released and the humeral head was dislocated. A canal finding reamer was sent down the center of the humeral canal. Sequential reaming up to a size 12 reamer was done. Off that reamer, a proximal humeral resection guide was placed. The proximal humerus was resected at 135 of inclination and 25 of retroversion. Osteophytes were then removed and the glenoid was exposed. Time was spent doing a complete capsular and labral release. The glenoid guide was then placed in the inferior aspect of the glenoid. A 3.2 mm Steinmann pin was then placed into the glenoid vault at 10 of inclination. The glenoid baseplate was then reamed. The final size 25 mm baseplate was then impacted in the place. A 6.5 mm central screw was then placed followed by superior and inferior locking screws. A 36 mm eccentric glenosphere was then impacted into place. Surrounding soft tissues were then injected with 100 cc an orthopedic pain control cocktail. The proximal humerus was then exposed. Sequential broaching of the humerus up to a size 12 broach was done. Off that broach a +6 offset humeral tray was trialed. The shoulder was then reduced, brought through a full range of motion, and felt to be stable. The shoulder was then dislocated and the broach was removed. The final size 12 micro press-fit humeral stem was then impacted into place. A standard humeral bearing was then snapped onto a +6 offset humeral tray. The humeral tray was then impacted onto the humeral stem. The shoulder was once again reduced, brought through a full range of motion, and felt to be stable. The subscapularis was poor quality and unable to be repaired. A dilute betadyne lavage was then done for 3 minutes. The joint was then irrigated with normal saline solution. Hemostasis was obtained. The interval was closed with 2-0 Vicryl suture. The skin was then closed with 2-0 Vicryl and kami. A Silverlon dressing was placed and the arm was rested in a regular arm sling. She was then extubated and transferred to a hospital bed. She taken to the postanesthesia care unit in stable condition. She tolerated the procedure well. Keyshawn Mendez PA-C, was present for the entire procedure. He was critical for patient positioning, prepping, draping, retraction exposure, wound closure and application of sterile dressing. I attest to the content of the Intraoperative Record and any orders documented therein. Any exceptions are noted below.
[2023-11-02] MEDS ORDERED: HYDROmorphone INJ 0.5 MG/0.5 ML SYR IV PRN (10:56)
[2023-11-02] MEDS ORDERED: METOCLOPRAMIDE HCL INJ 5 MG/ML 2 ML VIAL IV PRN (10:56)
[2023-11-02] MEDS ORDERED: NALOXONE HCL 0.4 MG/1 ML VIAL/CARP IV PRN (10:56)
[2023-11-02] MEDS ORDERED: bisacodyL 10 MG SUPP PR PRN (10:56)
[2023-11-02] MEDS ORDERED: traMADol HCL 50 MG TABLET PO PRN (10:56)
[2023-11-02] MEDS ORDERED: MAGNESIUM HYDROXIDE SUSP 30 ML UDC PO PRN (10:56)
[2023-11-02] MEDS: ORTHO JOINT ANESTHETIC ONE (10:58)
[2023-11-02] MEDS: SODIUM CHLORIDE 0.9% 1,000 ML IV SCH (11:19)
[2023-11-02] MEDS: KETOROLAC TROMETHAMINE 15 MG/ML VIAL IV SCH (11:20)
--- NOTE | 2023-11-02 11:34 | XRay Report ---
XR shoulder RT min 2V routine HISTORY: 73 years-old Female Post shoulder surgery COMPARISON: 10/06/2023 TECHNIQUE: 2 views of the right shoulder FINDINGS: Reverse right shoulder arthroplasty with overlying skin kami, expected postoperative soft tissue s welling with deep tissue air. No acute fracture, dislocation or unexpected opaque foreign body. IMPRESSION: Reverse right shoulder arthroplasty with expected postoperative changes. ACT 112: Negative or not required by law. The above report was generated using voice recognition software. It may contain grammatical, syntax o r spelling errors. Electronically signed by: Hugo Graham M.D. 11/02/2023 11:33 AM
--- NOTE | 2023-11-02 13:56 | Anesthesiology Progress Note ---
Date of Service November 02, 2023 Anesthesia Post Procedure Vital Signs Vital Signs: Temp Pulse Pulse Resp BP Pulse Ox O2 Del Method 11/02/23 13:46 36.4 C L 76 16 116/70 96 Room Air 11/02/23 12:50 36.6 C 78 16 113/69 96 Room Air 11/02/23 11:51 36.8 C 85 16 116/70 95 Room Air 11/02/23 11:19 36.4 C L 74 16 107/65 94 Room Air 11/02/23 10:50 36.5 C 80 16 119/71 94 Room Air 11/02/23 10:50 36.5 C 80 16 119/71 94 Room Air 11/02/23 10:30 36.5 C 81 13 121/70 94 Room Air 11/02/23 10:20 82 16 132/49 L 99 Oxymask 11/02/23 10:10 87 20 137/54 L 100 Oxymask 11/02/23 10:01 36 C L 90 18 149/62 H 99 Oxymask 11/02/23 08:00 37.1 C 83 16 158/79 H 95 Room Air O2 Flow Rate 11/02/23 13:46 11/02/23 12:50 11/02/23 11:51 11/02/23 11:19 11/02/23 10:50 11/02/23 10:50 11/02/23 10:30 11/02/23 10:20 4 11/02/23 10:10 6 11/02/23 10:01 8 11/02/23 08:00 Transfer of Care Handoff Completed per policy Notes Mental Status: alert / awake / arousable and participated in evaluation Patient Amnestic to Procedure: Yes Nausea / Vomiting: adequately controlled Pain: adequately controlled Airway Patency, RR, SpO2: stable & adequate BP & HR: stable & adequate Hydration State: stable & adequate Anesthetic Complications: no major complications apparent and Pt Satisfied with anesthetic care
[2023-11-02] MEDS: SIMVASTATIN 40 MG TAB PO SCH (20:53)
[2023-11-02] MEDS: DOCUSATE SODIUM 100 MG CAP PO SCH (20:53)
[2023-11-02] MEDS: SENNA 8.6 MG TAB PO SCH (20:53)
[2023-11-03] MEDS: lisinopril 10 MG TAB PO SCH (08:00)
[2023-11-03] MEDS: MULTIVITAMIN TAB PO SCH (08:00)
[2023-11-03] MEDS: MONTELUKAST SODIUM 10 MG TABLET PO SCH (08:00)
[2023-11-03] MEDS: dexAMETHasone 4 MG TAB PO SCH (08:00)
--- NOTE | 2023-11-03 10:30 | Orthopedic Progress Note ---
Date of Service November 03, 2023 Assessment & Plan (1) Rotator cuff tear arthropathy of right shoulder: (2) Biceps tendinopathy of right upper extremity: (3) Status post reverse total replacement of right shoulder: Plan 73-year-old woman POD# 1 s/p right reverse total shoulder replacement, doing well overall. Pain is well-controlled. Medically stable. Postoperative radiographs are well-appearing; hardware intact and well-positioned. She is neurologically intact. Plan: 1. DVT prophylaxis w/ early ambulation. Encourage elbow, wrist, digit AROM. 2. PT/OT as tolerated. Sling on at all times, including while sleeping, but may come off to shower and dress. Leave dressing intact for 7 days postop; may shower over dressing. Follow postop instructions. 3. Pain control doing well with current pain regimen. 4. Disposition - plan to D/C home w/ self-care later today once cleared by PT/OT. 5. F/u 2-3 weeks post-op w/ orthopedics (Dr. Patel's team), or as previously scheduled, for first post-op visit. Admission and Anticipated Discharge Date Admission Date: November 02, 2023 Subjective Patient is POD# 1 s/p right reverse total shoulder arthroplasty by Dr. Patel on 11/02/2023. Patient says her pain is well-controlled this morning. She does have some numbness/tingling paresthesias in the forearm and hand/digits, but which are improving. Denies CP, SOB, N/V. She has self-care arrangements made. Patient feels that she will be ready to go home today. Physical Exam Physical Exam: GENERAL: AA&Ox3, NAD. Pleasant, affect is calm. Up walking around with sling donned to RUE, well-fitting. Brushing teeth and appears comfortable. RESPIRATORY: Normal respiratory effort with no signs of distress. CHEST/AXILLA: Chest movement symmetrical. No deformities noted. CARDIOVASCULAR: No edema noted. SKIN: [place], warm and dry. MS/EXTREMITY: Shoulder Silverlon dressing c/d/i. + wrist/elbow AROM. Median/Ulnar/Radial nerve distributions intact to sensory/motor. Radial pulse intact, 2+. Results & Data Vital Signs (Past 12 Hours) Vital Signs Temp Pulse Resp BP Pulse Ox O2 Del Method 11/03/23 07:03 36.4 C L 60 16 122/68 95 Room Air 11/03/23 04:15 36.5 C 64 16 120/72 96 Room Air 11/03/23 00:02 100/61 11/02/23 22:48 36.4 C L 63 16 99/64 L 96 Room Air Diagnostic Findings Shoulder X-Ray 11/02/23 10:08 XR shoulder RT min 2V routine HISTORY: 73 years-old Female Post shoulder surgery COMPARISON: 10/06/2023 TECHNIQUE: 2 views of the right shoulder FINDINGS: Reverse right shoulder arthroplasty with overlying skin kami, expected postoperative soft tissue swelling with deep tissue air. No acute fracture, dislocation or unexpected opaque foreign body. IMPRESSION: Reverse right shoulder arthroplasty with expected postoperative changes. ACT 112: Negative or not required by law. The above report was generated using voice recognition software. It may contain grammatical, syntax or spelling errors. Electronically signed by: Hugo Graham M.D. 11/02/2023 11:33 AM
--- NOTE | 2023-11-03 11:00 | Discharge Summary ---
Date of Service November 03, 2023 Admission Exam (Per Admitting) ENMT Mouth: + dentition abnormality and + edentulous (upper); no TMJ abnormality Mallampati Class: III Neck normal visual inspection and + thick neck Respiratory normal respiratory effort Auscultation: lungs clear to auscultation bilaterally Cardiovascular Rate/Rhythm: regular rate and regular rhythm Musculoskeletal Spine: normal cervical ROM and no pain with cervical ROM Neurologic moves all extremities Psychiatric Orientation: alert and oriented x 3 Discharge Data Procedures Performed Operation Date: 11/02/23 09:00 Actual Procedures p Right Reverse Total Shoulder Arthroplasty(Right) - Keyshawn Patel DO Hospital Course (1) Rotator cuff tear arthropathy of right shoulder: (2) Biceps tendinopathy of right upper extremity: (3) Status post reverse total replacement of right shoulder: Plan 73-year-old woman POD# 1 s/p right reverse total shoulder replacement, doing well overall. Pain is well-controlled. Medically stable. Postoperative radiographs are well-appearing; hardware intact and well-positioned. She is neurologically intact. Plan: 1. DVT prophylaxis w/ early ambulation. Encourage elbow, wrist, digit AROM. 2. PT/OT as tolerated. Sling on at all times, including while sleeping, but may come off to shower and dress. Leave dressing intact for 7 days postop; may shower over dressing. Follow postop instructions. 3. Pain control doing well with current pain regimen. 4. Disposition - plan to D/C home w/ self-care later today once cleared by PT/OT. 5. F/u 2-3 weeks post-op w/ orthopedics (Dr. Patel's team), or as previously scheduled, for first post-op visit.
--- NOTE | 2023-11-03 17:27 | Discharge Summary ---
Date of Service November 03, 2023 Admission Exam Per Admitting Provider This is a well-developed, well-nourished female in no apparent distress.Physical exam of the right shoulder shows she only has about 40 degrees of forward elevation and 40 degrees of abduction. She has pain over the glenohumeral joint line. She has weakness throughout. Principal Diagnosis Same as "Discharge Diagnosis" noted below under Discharge Instructions. Discharge Exam GENERAL: AA&Ox3, NAD. Pleasant, affect is calm. Up walking around with sling donned to RUE, well-fitting. Brushing teeth and appears comfortable. RESPIRATORY: Normal respiratory effort with no signs of distress. CHEST/AXILLA: Chest movement symmetrical. No deformities noted. CARDIOVASCULAR: No edema noted. SKIN: [place], warm and dry. MS/EXTREMITY: Shoulder Silverlon dressing c/d/i. + wrist/elbow AROM. Median/Ulnar/Radial nerve distributions intact to sensory/motor. Radial pulse intact, 2+. Discharge Data Allergies Allergy/AdvReac Type Severity Reaction Status Date / Time enoxaparin Allergy Mild skin red Verified 10/05/23 07:36 and hot at site Sulfa (Sulfonamide AdvReac Unknown NAUSEA AND Verified 10/05/23 07:36 Antibiotics) VOMITING "ANTIBIOTICS" AdvReac Unknown THRUSH Uncoded 10/05/23 07:36 Procedures Performed Operation Date: 11/02/23 09:00 Actual Procedures p Right Reverse Total Shoulder Arthroplasty(Right) - Keyshawn Patel DO Ordered Studies 11/02/23 05:00 US - OR guided needle placemen Routine Hospital Course (1) Rotator cuff tear arthropathy of right shoulder: (2) Biceps tendinopathy of right upper extremity: (3) Status post reverse total replacement of right shoulder: On November 02, 2023 Mendy arrived at [facility] operating room and underwent a right reverse total shoulder replacement without complications. Patient had a spinal anesthetic for the procedure. Postoperatively, patient was transferred to the general orthopedic floor in stable condition and patient practiced early ambulation for DVT prophylaxis as appropriate. Patient's hospital course was uneventful. On postoperative day #1, patient's vital signs were stable and pain was well-controlled. Patient was able to participate well with physical therapy, performing the necessary ambulation and range of motion exercises. Patient was then discharged home in stable condition, with self- care. Patient will follow-up with orthopedics in 2 to 3 weeks for postoperative care. Plan 73-year-old woman POD# 1 s/p right reverse total shoulder replacement, doing well overall. Pain is well-controlled. Medically stable. Postoperative radiographs are well-appearing; hardware intact and well-positioned. She is neurologically intact. Plan: 1. DVT prophylaxis w/ early ambulation. Encourage elbow, wrist, digit AROM. 2. PT/OT as tolerated. Sling on at all times, including while sleeping, but may come off to shower and dress. Leave dressing intact for 7 days postop; may shower over dressing. Follow postop instructions. 3. Pain control doing well with current pain regimen. 4. Disposition - plan to D/C home w/ self-care later today once cleared by PT/OT. 5. F/u 2-3 weeks post-op w/ orthopedics (Dr. Patel's team), or as previously scheduled, for first post-op visit. Total Time Total Time Spent Total Time Spent (In Minutes): Total Time Spent with Patient: Total time spent is greater than 50% in coordination of care (as documented) at patient's floor/unit and/or counseling patient: Discharge Plan Discharge Items Patient Disposition: Home - Self-Care Reason For Visit: Degenerative Joint Disease Right Shoulder Discharge Diagnosis: Right reverse shoulder replacement Activity: Per Instructions section Non-emergency contact: Surgeon Call non-emergency contact if: your wound has increased redness and your wound has increased drainage Follow-up/Referrals: Monico Modi MD [Primary Care Provider] - Diet: Regular Addtl Attending Provider Instructions: Activity and Therapy Recommendations: * If you are using [facility] then therapy will be provided at your home until they feel you have accomplished all of your goals. * If you are using [facility] then Physical Therapy will be provided until they feel you are ready to start Outpatient Physical Therapy. * If you are not using home therapy then Outpatient Physical Therapy should start about 3-5 days from your day of surgery. Therapy will last about 8-12 weeks * Wear your sling for 3 weeks, unless otherwise instructed. You may remove your sling to shower and to dress, but otherwise, you should be in your sling at all times, including while sleeping * The shoulder replacement is very stable and you can use your hand while in the sling * You were shown a series of exercises in the hospital. Do these exercises daily including the exercises you were shown in physical therapy. Medications: * Narcotic You will likely be sent home from the hospital with a prescription for the narcotic pain medication that worked best throughout your stay. * Cefadroxil -take the antibiotic twice a day for 10 days to help prevent infection. * Other medications may be prescribed for specific circumstances. If you have any questions, please call the office at . * Resume previous home medications unless otherwise instructed Dressing Care: Leave the Silverlon dressing in place for 7 days. After 7 days you may remove the dressing. If the incision is not draining then you may leave the kami open to air. If there is a little bit of drainage or if the kami are getting stuck on your clothing then cover the incision with a dry dressing. The kami will be removed at your 2 week follow-up appointment. Showering: You may shower with the Silverlon dressing in place. Do not let the shower spra y hit the dressing directly. Pat the Silverlon dressing dry. If the dressing becomes wet underneath, then simply remove the dressing. Keep the incision dry until you are 7 days out from the day of surgery. After 7 days you may remove the Silverlon dressing and shower with the kami exposed. Let soapy water run over the kami and pat them dry. Do not scrub or soak the incision. Things To Watch For: * Drainage from the incision site that occurs more than one week after your surgery. * Increased redness at the incision site. * Fever above 102 degrees Fahrenheit. * Unusual chest pain or shortness of breath. * Call [facility] at with any of the above problems Follow-Up Visit: Follow-up with Dr. Patel's PA (Keyshawn Mendez) 2-3 weeks after your day of surgery. He will remove your kami and answer any questions. If you have any additional questions or concerns, Dr Patel is usually in the office at the same time and will be available An appointment was probably scheduled when you signed-up for surgery in the office. If you have any questions call More detailed instructions as well as Frequently Asked Questions were provided in a folder by our office when you signed-up for surgery. Please review these instructions when you get home. If you have any further questions or concerns, please feel free to call the office at [phone] Pending Studies at Discharge: No Stand-Alone Forms: [facility], Smoking Cessation Medications and DC Order Prescriptions: New tramadol 50 mg Tablet 50 mg PO Q4H PRN (Reason: pain) Qty: 30 0RF cefadroxil 500 mg capsule 500 mg PO BID 10 Days Qty: 20 0RF Continued omeprazole 20 mg capsule,delayed release(DR/EC) 20 mg PO QAM lisinopril 10 mg tablet 10 mg PO QAM meloxicam [Mobic] 7.5 mg tablet 7.5 mg PO QAM mecobalamin (vitamin B12) 1 tab PO QAM simvastatin 40 mg Tablet 40 mg PO HS montelukast 10 mg tablet 10 mg PO QAM polyethylene glycol 3350 [Miralax] 17 gram/dose Powder 17 g PO DAILY Calcium 600 with Vitamin D3 600 mg-10 mcg (400 unit) Tablet,Chewable 1 tab PO QAM Patient Comments: stopped at this time 10/05/23 amoxicillin-pot clavulanate 875-125 mg Tablet 1 tab PO BID Patient Comments: for "lump in mouth" dentist prescribed 10/05/23 Discharge Orders: Discharge Order (Routine); Ordered 11/03/23 Ordered By: Alex Patton Admission Data Admit Date/Time: 11/02/23 10:08 Attending Provider: Keyhsawn Patel Admit Provider: Keyshawn Patel Primary Care Provider: Monico Modi Other Interventions: Discharge Summary Assessment (RN) Last Done: 11/03/23 09:59
== END 2023-11-03 10:29 | disposition home or self-care (01) ==
LOC: ASU 07:22 → 3E 07:22